=== PATIENT | female | born 1940 | race African-American/Black ===

== ENCOUNTER 2017-03-07 16:33 | Inpatient (IN) | payer MEDICARE, MEDICAID ==
[~2017-03-07] VITALS: Ht 160 cm; Wt 48.5 kg
[~2017-03-07 16:33] MED LIST: AMLODIPINE BESYL5 MG ORAL; ENALAPRIL MALE2.5 MG ORAL; FUROSEMIDE20 M1 ORAL; HYDROCODON-ACE1 EA15 ORAL; INVEGA6 MG PO; OXYBUTYNIN CHLOR5 M2 PO; QUETIAPINE FUM200 MG ORAL; SIMVASTATIN10 MG ORAL; ZOLPIDEM TARTRA10 MG ORAL
[2017-03-07 16:50] VITALS: BP 95/58
[2017-03-07 17:23] LABS: BASOPHILS % (AUTO) 1.1 % (0.0-2.0); EOSINOPHILS % (AUTO) 1.9 % (0.0-3.0); HEMATOCRIT 41.8 % (37.0-47.0); HEMOGLOBIN 13.1 G/DL (12.0-16.0); LYMPHOCYTES % (AUTO) 37.4 % (20.0-45.0); MEAN CORPUSCULAR VOLUME 100 FL (80-99); MONOCYTES % (AUTO) 6.6 % (1.0-10.0); PLATELET COUNT 283 K/UL (150-450); RED CELL DISTRIBUTION WIDTH 13.5 % (11.6-14.8)
[2017-03-07 17:51] LABS: ALANINE AMINOTRANSFERASE 26 U/L (12-78); ALBUMIN 3.3 G/DL (3.4-5.0); ALBUMIN/GLOBULIN RATIO 0.8 (1.0-2.7); ALKALINE PHOSPHATASE 103 U/L (46-116); ANION GAP 9 mmol/L (5-15); ASPARTATE AMINO TRANSFERASE 20 U/L (15-37); BILIRUBIN,TOTAL 0.2 MG/DL (0.2-1.0); BLOOD UREA NITROGEN 20 mg/dL (7-18); CALCIUM 9.4 MG/DL (8.5-10.1); CARBON DIOXIDE 27 MMOL/L (21-32); CHLORIDE 108 MMOL/L (98-107); CKMB 0.6 NG/ML (0.0-3.6); CREATINE KINASE 43 U/L (26-308); CREATININE 0.9 MG/DL (0.55-1.30); POTASSIUM 4.6 MMOL/L (3.5-5.1); SODIUM 144 MMOL/L (136-145)
[2017-03-07 18:00] VITALS: BP 92/52
[2017-03-07] MEDS ORDERED: DITROPAN XL5 MG ORAL (18:00)
[2017-03-07] MEDS ORDERED: AMLODIPINE BESY10 MG ORAL (18:00)
[2017-03-07] MEDS ORDERED: BENZTROPINE ME0.5 MG PO (18:00)
[2017-03-07] MEDS ORDERED: ATORVASTATIN CA10 MG ORAL (18:00)
[2017-03-07] MEDS ORDERED: BISACODYL5 MG RECTAL (18:00)
[2017-03-07] MEDS ORDERED: DOCUSATE SODIU100 MG ORAL (18:00)
[2017-03-07] MEDS ORDERED: ASPIR 8181 MG ORAL (18:00)
[2017-03-07] MEDS ORDERED: NAMENDA10 MG ORAL (18:00)
[2017-03-07] MEDS ORDERED: PRO-STAT LIQUID30 ML ORAL (18:08)
[2017-03-07] MEDS ORDERED: POTASSIUM CHLO20 ME2 ORAL (18:08)
[2017-03-07] MEDS ORDERED: SEROQUEL25 MG ORAL (18:08)
[2017-03-07] MEDS ORDERED: RESTORIL15 MG ORAL (18:08)
[2017-03-07] MEDS ORDERED: REMERON15 MG ORAL (18:08)
--- NOTE | 2017-03-07 18:10 | Emergency Room Report ---
History of Present Illness General Chief Complaint: General Complaint Source: Patient, Medical Record Present Illness HPI Patient presents emergency department today complaining of acute altered mental status. And possible pneumonia. His his primary care physician Dr. Summer Shea. Patient at baseline is confusing umbilical to provide much history. All history was obtained from medical records. Symptoms noted to be moderate per report. As patient apparently was coughing. At the group home.No other modifying factors. No other associated signs and symptoms. No other complaints were noted. Allergies: Coded Allergies: PENICILLINS (Verified Allergy, Unknown, 07/30/08) Patient History Past Medical History: HTN, CAD, psych hx - psychosis Past Surgical History: none Pertinent Family History: none Social History: Denies: smoking, alcohol use, drug use Reviewed Nursing Documentation: PMH: Agreed, PSxH: Agreed Nursing Documentation-PMH Past Medical History: No History, Except For Hx Cardiac Problems: Yes Hx Hypertension: Yes - pvd, rt bka Hx Cancer: No Hx Gastrointestinal Problems: Yes - abdominal pain Hx Neurological Problems: Yes - psychosis Review of Systems All Other Systems: limited - poor mental status Physical Exam Vital Signs Date Time Temp Pulse Resp B/P (MAP) Pulse Ox O2 Delivery O2 Flow Rate FiO2 03/07/17 16:27 98.2 57 18 103/57 95 Room Air Sp02 EP Interpretation: reviewed, normal General Appearance: alert, mild distress - weak and chronically ill Head: atraumatic Eyes: bilateral eye normal inspection ENT: normal ENT inspection, hearing grossly normal, normal voice Neck: normal inspection, full range of motion, supple, no bony tend Respiratory: decreased breath sounds, crackles - right Cardiovascular #1: regular rate, rhythm, no edema Gastrointestinal: normal inspection, normal bowel sounds, non tender, soft, no guarding, no hernia Genitourinary: no CVA tenderness Musculoskeletal: normal inspection, back normal, normal range of motion Neurologic: alert, responsive Psychiatric: depressed affect Skin: normal inspection, normal color, no rash Medical Decision Making Diagnostic Impression: Primary Impression: Pneumonia Additional Impression: Altered awareness, transient ER Course Patient presents emergency department today with cough congestion. Differential diagnoses include pneumonia, bronchitis, asthma just to name a few.Given the severity of the patient's presentation I felt this is a highly complex patient. This patient required extensive workup. Patient x-rays workup shows evidence of pneumonia. Given patient's borderline condition advanced age and illness and for the patient require admission for IV antibiotics. Patient was on IV antibiotics. Case was discussed with Dr. Summer Shea for admission. Labs Test 03/07/17 16:45 White Blood Count 9.0 K/UL (4.8-10.8) Red Blood Count 4.20 M/UL (4.20-5.40) Hemoglobin 13.1 G/DL (12.0-16.0) Hematocrit 41.8 % (37.0-47.0) Mean Corpuscular Volume 100 FL (80-99) Mean Corpuscular Hemoglobin 31.2 PG (27.0-31.0) Mean Corpuscular Hemoglobin Concent 31.3 G/DL (32.0-36.0) Red Cell Distribution Width 13.5 % (11.6-14.8) Platelet Count 283 K/UL (150-450) Mean Platelet Volume 5.0 FL (6.5-10.1) Neutrophils (%) (Auto) 53.0 % (45.0-75.0) Lymphocytes (%) (Auto) 37.4 % (20.0-45.0) Monocytes (%) (Auto) 6.6 % (1.0-10.0) Eosinophils (%) (Auto) 1.9 % (0.0-3.0) Basophils (%) (Auto) 1.1 % (0.0-2.0) Prothrombin Time 10.2 SEC (9.30-11.50) Prothromb Time International Ratio 1.0 (0.9-1.1) Activated Partial Thromboplast Time 26 SEC (23-33) Sodium Level 144 MMOL/L (136-145) Potassium Level 4.6 MMOL/L (3.5-5.1) Chloride Level 108 MMOL/L (98-107) Carbon Dioxide Level 27 MMOL/L (21-32) Anion Gap 9 mmol/L (5-15) Blood Urea Nitrogen 20 mg/dL (7-18) Creatinine 0.9 MG/DL (0.55-1.30) Estimat Glomerular Filtration Rate mL/min (>60) Glucose Level 109 MG/DL (74-106) Calcium Level 9.4 MG/DL (8.5-10.1) Total Bilirubin 0.2 MG/DL (0.2-1.0) Aspartate Amino Transf (AST/SGOT) 20 U/L (15-37) Alanine Aminotransferase (ALT/SGPT) 26 U/L (12-78) Alkaline Phosphatase 103 U/L (46-116) Total Creatine Kinase 43 U/L (26-308) Creatine Kinase MB 0.6 NG/ML (0.0-3.6) Creatine Kinase MB Relative Index 1.3 Troponin I 0.000 ng/mL (0.000-0.056) Pro-B-Type Natriuretic Peptide 328 pg/mL (0-125) Total Protein 7.2 G/DL (6.4-8.2) Albumin 3.3 G/DL (3.4-5.0) Globulin 3.9 g/dL Albumin/Globulin Ratio 0.8 (1.0-2.7) Lipase 62 U/L (73-393) EKG Diagnostic Results Rate: normal Rhythm: NSR ST Segments: no acute changes Rhythm Strip Diag. Results EP Interpretation: yes Rate: 92 Rhythm: NSR, no PVC's, no ectopy Chest X-Ray Diagnostic Results Chest X-Ray Diagnostic Results : Chest X-Ray Ordered: Yes # of Views/Limited/Complete: 1 View Indication: Shortness of Breath EP Interpretation: Yes Interpretation: no effusion, no pneumothorax, other - right sided infiltrate , Impression: Other - acute pneumonia Electronically Signed by: Electronically signed by Kenny Landry MD Last Vital Signs Date Time Temp Pulse Resp B/P (MAP) Pulse Ox O2 Delivery O2 Flow Rate FiO2 03/07/17 16:27 98.2 57 18 103/57 95 Room Air Status: improved Disposition: ADMITTED INPATIENT Condition: Serious Referrals: Summer Gaines MD (PCP) KENNY LANDRY M.D. Mar 07, 2017 18:10
[2017-03-07] MEDS ORDERED: cefTRIAXone 1 GM in NS 55 ML IVPB ONE (18:15)
[2017-03-07] MEDS ORDERED: Azithromycin 500 MG in D5W 275 ML IVPB ONE (18:15)
--- NOTE | 2017-03-07 19:05 | Infectious Diseases Prog Note ---
Assessment/Plan Problems: (1) Pneumonia Assessment & Plan: suspect HCAP, will screen for influenza, and start vancomycin with cefepime empirically (2) Sepsis Assessment & Plan: will start vancomycin with cefepime empirically pending blood culture (3) Altered awareness, transient Assessment & Plan: suspect due to sepsis, recommend brain image and neuro consult Subjective Allergies: Coded Allergies: PENICILLINS (Verified Allergy, Unknown, 07/30/08) Objective Vital Signs Last 24 Hour Vital Signs Date Time Temp Pulse Resp B/P (MAP) Pulse Ox O2 Delivery O2 Flow Rate FiO2 03/07/17 16:27 98.2 57 18 103/57 95 Room Air Height (Feet): 5 Height (Inches): 6.00 Weight (Pounds): 140 Laboratory Tests Test 03/07/17 16:45 White Blood Count 9.0 K/UL (4.8-10.8) Red Blood Count 4.20 M/UL (4.20-5.40) Hemoglobin 13.1 G/DL (12.0-16.0) Hematocrit 41.8 % (37.0-47.0) Mean Corpuscular Volume 100 FL (80-99) H Mean Corpuscular Hemoglobin 31.2 PG (27.0-31.0) H Mean Corpuscular Hemoglobin Concent 31.3 G/DL (32.0-36.0) L Red Cell Distribution Width 13.5 % (11.6-14.8) Platelet Count 283 K/UL (150-450) Mean Platelet Volume 5.0 FL (6.5-10.1) L Neutrophils (%) (Auto) 53.0 % (45.0-75.0) Lymphocytes (%) (Auto) 37.4 % (20.0-45.0) Monocytes (%) (Auto) 6.6 % (1.0-10.0) Eosinophils (%) (Auto) 1.9 % (0.0-3.0) Basophils (%) (Auto) 1.1 % (0.0-2.0) Prothrombin Time 10.2 SEC (9.30-11.50) Prothromb Time International Ratio 1.0 (0.9-1.1) Activated Partial Thromboplast Time 26 SEC (23-33) Sodium Level 144 MMOL/L (136-145) Potassium Level 4.6 MMOL/L (3.5-5.1) Chloride Level 108 MMOL/L (98-107) H Carbon Dioxide Level 27 MMOL/L (21-32) Anion Gap 9 mmol/L (5-15) Blood Urea Nitrogen 20 mg/dL (7-18) H Creatinine 0.9 MG/DL (0.55-1.30) Estimat Glomerular Filtration Rate mL/min (>60) Glucose Level 109 MG/DL (74-106) H Calcium Level 9.4 MG/DL (8.5-10.1) Total Bilirubin 0.2 MG/DL (0.2-1.0) Aspartate Amino Transf (AST/SGOT) 20 U/L (15-37) Alanine Aminotransferase (ALT/SGPT) 26 U/L (12-78) Alkaline Phosphatase 103 U/L (46-116) Total Creatine Kinase 43 U/L (26-308) Creatine Kinase MB 0.6 NG/ML (0.0-3.6) Creatine Kinase MB Relative Index 1.3 Troponin I 0.000 ng/mL (0.000-0.056) Pro-B-Type Natriuretic Peptide 328 pg/mL (0-125) H Total Protein 7.2 G/DL (6.4-8.2) Albumin 3.3 G/DL (3.4-5.0) L Globulin 3.9 g/dL Albumin/Globulin Ratio 0.8 (1.0-2.7) L Lipase 62 U/L (73-393) L Current Medications Medications (Trade) Dose Ordered Sig/Kvng Route PRN Reason Start Time Stop Time Status Last Admin Dose Admin Azithromycin 500 mg/Dextrose 275 ml @ 275 mls/hr ONCE ONCE IVPB 03/07/17 18:15 03/07/17 19:14 Ayanna Salazar M.D. Mar 07, 2017 19:05
[2017-03-07 19:30] VITALS: BP 122/75
[2017-03-07] MEDS ORDERED: Azithromycin 500mg Inj IV ONE (20:25)
[2017-03-07 20:30] VITALS: BP 110/91
[2017-03-07] MEDS: Cefepime HCl 2 GM in NS 110 ML IVPB SCH (22:56)
[2017-03-08] VITALS: BP 118/69
[2017-03-08] MEDS: Vancomycin 1 GM in D5W 275 ML IVPB SCH ×2 (00:03→23:31)
[2017-03-08] MEDS ORDERED: Norco 5mg/325mg tab ORAL PRN (03:15)
[2017-03-08] MEDS ORDERED: Zolpidem 5mg tab ORAL PRN (03:15)
[2017-03-08 04:00] VITALS: BP 159/70
[2017-03-08 08:25] VITALS: BP 132/81
[2017-03-08] MEDS: Aspirin EC 81mg tab ORAL SCH (09:14)
[2017-03-08] MEDS: Bisacodyl EC 5mg tab ORAL SCH (09:15)
[2017-03-08] MEDS: Enalapril 2.5mg tab ORAL SCH (09:15)
[2017-03-08] MEDS: Docusate 100mg cap ORAL SCH ×3 (09:15→18:52)
[2017-03-08] MEDS: Memantine 10mg tab ORAL SCH (09:16)
[2017-03-08] MEDS: Heparin 5000 units/ml inj SUBQ SCH ×2 (09:18→21:03)
[2017-03-08] MEDS: Cefepime HCl 2 GM in NS 110 ML IVPB SCH ×2 (09:47→20:52)
[2017-03-08 10:11] LABS: BASOPHILS % (AUTO) 0.7 % (0.0-2.0); EOSINOPHILS % (AUTO) 1.7 % (0.0-3.0); HEMATOCRIT 40.2 % (37.0-47.0); HEMOGLOBIN 13.5 G/DL (12.0-16.0); LYMPHOCYTES % (AUTO) 34.8 % (20.0-45.0); MEAN CORPUSCULAR VOLUME 95 FL (80-99); MONOCYTES % (AUTO) 8.1 % (1.0-10.0); NEUTROPHILS % (AUTO) 54.8 % (45.0-75.0); PLATELET COUNT 293 K/UL (150-450); RED BLOOD COUNT 4.21 M/UL (4.20-5.40); RED CELL DISTRIBUTION WIDTH 12.9 % (11.6-14.8); WHITE BLOOD COUNT 7.7 K/UL (4.8-10.8)
--- NOTE | 2017-03-08 10:15 | History and Physical Report ---
DATE OF ADMISSION: 03/07/2017 HISTORY OF PRESENT ILLNESS: The patient is a poor historian. She has had one schizophrenia paranoid type. The patient is admitted for cough and pneumonia on the x-ray, admitted for pneumonia. The patient coughing and shortness of breath. Denies nausea, vomiting, or diarrhea. No fever or chills. No abdominal pain. Denies rectal bleeding, however, is a poor historian. PAST MEDICAL HISTORY: PVD, paranoid schizophrenia, constipation, hypertension, advanced dementia, urinary incontinence, psychosis as mentioned, hyperlipidemia, and insomnia. PAST SURGICAL HISTORY: Lower extremity amputation. MEDICATIONS: Aspirin, Norvasc, bisacodyl, Colace, enalapril, furosemide, Namenda, mirtazapine, oxybutynin, , Invega, and Zocor. ALLERGIES: Penicillin. SOCIAL HISTORY: She does have a history of smoking. No history of drug or alcohol abuse. She comes from a [place] [facility]. REVIEW OF SYSTEMS: HEENT: Denies headaches. RESPIRATORY: Reports shortness of breath and cough. CARDIOVASCULAR: Denies chest pain. GASTROINTESTINAL: Denies nausea, vomiting, or diarrhea. EXTREMITIES: Denies pain. CENTRAL NERVOUS SYSTEM: No change in vision or speech pattern, however, she is a poor historian. PHYSICAL EXAMINATION: VITAL SIGNS: Temperature is 98.2 degrees, pulse is 57, and blood pressure 103/57. HEENT: PERRLA. NECK: Supple. No lymphadenopathy. CHEST: Bibasilar rales. CARDIOVASCULAR: Regular rate and rhythm. GI: Soft, nontender, and nondistended. No organomegaly. EXTREMITIES: Does have lower extremity amputation as mentioned. NEUROLOGIC: Oriented to name. LABORATORY AND DIAGNOSTIC DATA: Chest x-ray showed possible infiltrate. WBC of 9, hemoglobin 13.1, and platelets of 283,000. Sodium 144, potassium 4.6, BUN of 20, creatinine of 0.9, and glucose of 109. ASSESSMENT AND PLAN: Possible pneumonia on the x-ray. I have asked , Dr. Green, and Dr. Clark to see the patient for the pneumonia and for elevated chloride as well as elevated BNP. Summer Gaines M.D. DR: Cate JOB#: [id number] CC:
--- NOTE | 2017-03-08 10:22 | Diagnostic Imaging Report ---
Indication: COUGH Technique: One view of the chest Comparison: none Findings: Atelectatic changes are seen at both lung bases. Lungs and pleural spaces are otherwise clear. The heart is upper limits normal in size. Upper mediastinum is unremarkable. The aorta is tortuous ectatic and calcified. Impression: Bibasilar atelectasis No acute process otherwise
[2017-03-08 10:32] LABS: ANION GAP 7 mmol/L (5-15); BLOOD UREA NITROGEN 12 mg/dL (7-18); CALCIUM 9.1 MG/DL (8.5-10.1); CARBON DIOXIDE 26 MMOL/L (21-32); CHLORIDE 108 MMOL/L (98-107); CREATININE 0.8 MG/DL (0.55-1.30); POTASSIUM 4.1 MMOL/L (3.5-5.1); SODIUM 141 MMOL/L (136-145)
[2017-03-08 12:05] VITALS: BP 113/72
--- NOTE | 2017-03-08 14:36 | Consultation ---
Consult Note Assessment/Plan dict atelectasis no obvious pneumonia AMS consider neuro eval thanks KENIA DOYLE Mar 08, 2017 14:36
--- NOTE | 2017-03-08 14:36 | Consultation ---
Consult Note Assessment/Plan dict atelectasis no obvious pneumonia AMS consider neuro eval thanks KENIA DOYLE Mar 08, 2017 14:36
--- NOTE | 2017-03-08 14:36 | Consultation ---
Consult Note Assessment/Plan dict atelectasis no obvious pneumonia AMS consider neuro eval thanks KENIA DOYLE Mar 08, 2017 14:36
--- NOTE | 2017-03-08 15:26 | General Progress Note ---
Assessment/Plan Problem List: (1) Sepsis ICD Codes: A41.9 - Sepsis SNOMED: 64900581 (2) Pneumonia ICD Codes: J18.9 - Pneumonia, unspecified organism SNOMED: 229030053 Qualifiers: Status: progressing Assessment/Plan afebrile no wheezing sepsis pna abx per id psych patient Subjective ROS Limited/Unobtainable: Yes Allergies: Coded Allergies: PENICILLINS (Verified Allergy, Unknown, 07/30/08) Objective Last 24 Hour Vital Signs Date Time Temp Pulse Resp B/P (MAP) Pulse Ox O2 Delivery O2 Flow Rate FiO2 03/08/17 12:05 97.7 81 20 113/72 100 Room Air 03/08/17 09:15 132/81 03/08/17 09:15 87 132/81 03/08/17 08:25 97.7 87 16 132/81 96 Room Air 03/08/17 04:00 98.2 89 19 159/70 92 Room Air 03/08/17 00:00 97.3 75 20 118/69 97 Room Air 03/07/17 20:35 98.5 98 22 110/91 97 Room Air 03/07/17 20:30 98 22 110/91 97 Room Air 03/07/17 19:30 98.5 95 24 122/75 97 Room Air 03/07/17 18:00 56 16 92/52 96 Room Air 03/07/17 16:50 98.0 60 18 95/58 95 Room Air 03/07/17 16:27 98.2 57 18 103/57 95 Room Air Intake and Output 03/08/17 03/09/17 19:00 07:00 Intake Total 200 ml Balance 200 ml Intake Oral 200 ml Laboratory Tests 03/07/17 16:45: White Blood Count 9.0, Red Blood Count 4.20, Hemoglobin 13.1, Hematocrit 41.8, Mean Corpuscular Volume 100H, Mean Corpuscular Hemoglobin 31.2H, Mean Corpuscular Hemoglobin Concent 31.3L, Red Cell Distribution Width 13.5, Platelet Count 283, Mean Platelet Volume 5.0L, Neutrophils (%) (Auto) 53.0, Lymphocytes (%) (Auto) 37.4, Monocytes (%) (Auto) 6.6, Eosinophils (%) (Auto) 1.9, Basophils (%) (Auto) 1.1, Prothrombin Time 10.2, Prothromb Time International Ratio 1.0, Activated Partial Thromboplast Time 26, Sodium Level 144, Potassium Level 4.6, Chloride Level 108H, Carbon Dioxide Level 27, Anion Gap 9, Blood Urea Nitrogen 20H, Creatinine 0.9, Estimat Glomerular Filtration Rate , Glucose Level 109H, Calcium Level 9.4, Total Bilirubin 0.2, Aspartate Amino Transf (AST/SGOT) 20, Alanine Aminotransferase (ALT/SGPT) 26, Alkaline Phosphatase 103, Total Creatine Kinase 43, Creatine Kinase MB 0.6, Creatine Kinase MB Relative Index 1.3, Troponin I 0.000, Pro-B-Type Natriuretic Peptide 328H, Total Protein 7.2, Albumin 3.3L, Globulin 3.9, Albumin/Globulin Ratio 0.8L , Lipase 62L 03/08/17 10:00: White Blood Count 7.7, Red Blood Count 4.21, Hemoglobin 13.5, Hematocrit 40.2, Mean Corpuscular Volume 95, Mean Corpuscular Hemoglobin 32.0H, Mean Corpuscular Hemoglobin Concent 33.5, Red Cell Distribution Width 12.9, Platelet Count 293, Mean Platelet Volume 5.4L, Neutrophils (%) (Auto) 54.8, Lymphocytes (%) (Auto) 34.8, Monocytes (%) (Auto) 8.1, Eosinophils (%) (Auto) 1.7, Basophils (%) (Auto ) 0.7, Sodium Level 141, Potassium Level 4.1, Chloride Level 108H, Carbon Dioxide Level 26, Anion Gap 7, Blood Urea Nitrogen 12, Creatinine 0.8, Estimat Glomerular Filtration Rate , Glucose Level 100, Calcium Level 9.1 Height (Feet): 5 Height (Inches): 6.00 Weight (Pounds): 140 General Appearance: confused - l Respiratory/Chest: lungs clear Abdomen: soft Summer Gaines MD Mar 08, 2017 15:26
--- NOTE | 2017-03-08 15:46 | Infectious Diseases Prog Note ---
Assessment/Plan Problems: (1) Pneumonia Assessment & Plan: needs to rule out aspiration, since she had prolonged oral phase when eating , screening for influenza is negative , continue vancomycin with cefepime empirically (2) Sepsis Assessment & Plan: continue vancomycin with cefepime empirically pending blood culture (3) Altered awareness, transient Assessment & Plan: suspect due to sepsis, recommend brain image and neuro consult (4) At risk for aspiration Assessment & Plan: recommend swallow eval Subjective ROS Limited/Unobtainable: Yes Allergies: Coded Allergies: PENICILLINS (Verified Allergy, Unknown, 07/30/08) Subjective she is sleeping , but easy to arouse , nonverbal, follows commands Objective Vital Signs Last 24 Hour Vital Signs Date Time Temp Pulse Resp B/P (MAP) Pulse Ox O2 Delivery O2 Flow Rate FiO2 03/08/17 12:05 97.7 81 20 113/72 100 Room Air 03/08/17 09:15 132/81 03/08/17 09:15 87 132/81 03/08/17 08:25 97.7 87 16 132/81 96 Room Air 03/08/17 04:00 98.2 89 19 159/70 92 Room Air 03/08/17 00:00 97.3 75 20 118/69 97 Room Air 03/07/17 20:35 98.5 98 22 110/91 97 Room Air 03/07/17 20:30 98 22 110/91 97 Room Air 03/07/17 19:30 98.5 95 24 122/75 97 Room Air 03/07/17 18:00 56 16 92/52 96 Room Air 03/07/17 16:50 98.0 60 18 95/58 95 Room Air 03/07/17 16:27 98.2 57 18 103/57 95 Room Air Height (Feet): 5 Height (Inches): 6.00 Weight (Pounds): 140 General Appearance: WD/WN, no acute distress HEENT: normocephalic, atraumatic, anicteric, mucous membranes moist Respiratory/Chest: chest wall non-tender, lungs clear, normal breath sounds, no respiratory distress, no accessory muscle use Cardiovascular: normal peripheral pulses, normal rate, regular rhythm, no gallop/murmur, no JVD Abdomen: normal bowel sounds, soft, non tender, no organomegaly, non distended , no mass, no scars Extremities: no cyanosis, no clubbing Skin: no rash, no lesions, no ulcers Neurologic/Psychiatric: alert, responsive Lymphatic: no neck adenopathy, no groin adenopathy Microbiology Date/Time Source Procedure Growth Status 03/08/17 04:33 Nasopharynx Influenza Types A,B Antigen (NUPUR) - Final Complete Laboratory Tests Test 03/07/17 16:45 03/08/17 10:00 White Blood Count 9.0 K/UL (4.8-10.8) 7.7 K/UL (4.8-10.8) Red Blood Count 4.20 M/UL (4.20-5.40) 4.21 M/UL (4.20-5.40) Hemoglobin 13.1 G/DL (12.0-16.0) 13.5 G/DL (12.0-16.0) Hematocrit 41.8 % (37.0-47.0) 40.2 % (37.0-47.0) Mean Corpuscular Volume 100 FL (80-99) H 95 FL (80-99) Mean Corpuscular Hemoglobin 31.2 PG (27.0-31.0) H 32.0 PG (27.0-31.0) H Mean Corpuscular Hemoglobin Concent 31.3 G/DL (32.0-36.0) L 33.5 G/DL (32.0-36.0) Red Cell Distribution Width 13.5 % (11.6-14.8) 12.9 % (11.6-14.8) Platelet Count 283 K/UL (150-450) 293 K/UL (150-450) Mean Platelet Volume 5.0 FL (6.5-10.1) L 5.4 FL (6.5-10.1) L Neutrophils (%) (Auto) 53.0 % (45.0-75.0) 54.8 % (45.0-75.0) Lymphocytes (%) (Auto) 37.4 % (20.0-45.0) 34.8 % (20.0-45.0) Monocytes (%) (Auto) 6.6 % (1.0-10.0) 8.1 % (1.0-10.0) Eosinophils (%) (Auto) 1.9 % (0.0-3.0) 1.7 % (0.0-3.0) Basophils (%) (Auto) 1.1 % (0.0-2.0) 0.7 % (0.0-2.0) Prothrombin Time 10.2 SEC (9.30-11.50) Prothromb Time International Ratio 1.0 (0.9-1.1) Activated Partial Thromboplast Time 26 SEC (23-33) Sodium Level 144 MMOL/L (136-145) 141 MMOL/L (136-145) Potassium Level 4.6 MMOL/L (3.5-5.1) 4.1 MMOL/L (3.5-5.1) Chloride Level 108 MMOL/L (98-107) H 108 MMOL/L (98-107) H Carbon Dioxide Level 27 MMOL/L (21-32) 26 MMOL/L (21-32) Anion Gap 9 mmol/L (5-15) 7 mmol/L (5-15) Blood Urea Nitrogen 20 mg/dL (7-18) H 12 mg/dL (7-18) Creatinine 0.9 MG/DL (0.55-1.30) 0.8 MG/DL (0.55-1.30) Estimat Glomerular Filtration Rate mL/min (>60) mL/min (>60) Glucose Level 109 MG/DL (74-106) H 100 MG/DL (74-106) Calcium Level 9.4 MG/DL (8.5-10.1) 9.1 MG/DL (8.5-10.1) Total Bilirubin 0.2 MG/DL (0.2-1.0) Aspartate Amino Transf (AST/SGOT) 20 U/L (15-37) Alanine Aminotransferase (ALT/SGPT) 26 U/L (12-78) Alkaline Phosphatase 103 U/L (46-116) Total Creatine Kinase 43 U/L (26-308) Creatine Kinase MB 0.6 NG/ML (0.0-3.6) Creatine Kinase MB Relative Index 1.3 Troponin I 0.000 ng/mL (0.000-0.056) Pro-B-Type Natriuretic Peptide 328 pg/mL (0-125) H Total Protein 7.2 G/DL (6.4-8.2) Albumin 3.3 G/DL (3.4-5.0) L Globulin 3.9 g/dL Albumin/Globulin Ratio 0.8 (1.0-2.7) L Lipase 62 U/L (73-393) L Current Medications Medications (Trade) Dose Ordered Sig/Kvng Route PRN Reason Start Time Stop Time Status Last Admin Dose Admin Acetaminophen/ Hydrocodone Bitart ([place] 5/325) 1 tab Q4H PRN ORAL For Pain 03/08/17 03:15 03/15/17 03:14 Amlodipine Besylate (Norvasc) 10 mg DAILY ORAL 03/08/17 09:00 04/07/17 08:59 03/08/17 09:15 Aspirin (Ecotrin) 81 mg DAILY ORAL 03/08/17 09:00 04/07/17 08:59 03/08/17 09:14 Atorvastatin Calcium (Lipitor) 5 mg BEDTIME ORAL 03/08/17 21:00 04/07/17 20:59 Benztropine Mesylate (Cogentin) 0.5 mg QHS ORAL 03/08/17 21:00 04/07/17 20:59 Bisacodyl (Dulcolax) 10 mg DAILY ORAL 03/08/17 09:00 04/07/17 08:59 03/08/17 09:15 Cefepime HCl 2 gm/ Sodium Chloride 110 ml @ 220 mls/hr EVERY 12 HOURS IVPB 03/07/17 21:00 03/14/17 20:59 03/08/17 09:47 Docusate Sodium (Colace) 100 mg TWICE A DAY ORAL 03/08/17 09:00 04/07/17 08:59 03/08/17 09:15 Enalapril Maleate (Vasotec) 2.5 mg DAILY ORAL 03/08/17 09:00 04/07/17 08:59 03/08/17 09:15 Furosemide (Lasix) 20 mg DAILY ORAL 03/08/17 09:00 04/07/17 08:59 03/08/17 09:15 Heparin Sodium (Porcine) (Heparin 5000 units/ml) 5,000 units EVERY 12 HOURS SUBQ 03/08/17 09:00 04/07/17 08:59 03/08/17 09:18 Memantine (Namenda) 10 mg DAILY ORAL 03/08/17 09:00 04/07/17 08:59 03/08/17 09:16 Mirtazapine (Remeron) 15 mg BEDTIME ORAL 03/08/17 21:00 04/07/17 20:59 Non-Formulary Medication (Non-Formulary Med) 1 ea DAILY ORAL 03/08/17 09:00 04/07/17 08:59 UNV Oxybutynin Chloride (Ditropan) 5 mg BID ORAL 03/08/17 18:00 04/07/17 17:59 Potassium Chloride (K-Dur) 20 meq DAILY ORAL 03/09/17 09:00 04/08/17 08:59 Quetiapine Fumarate (SEROquel) 25 mg DAILY ORAL 03/08/17 09:00 04/07/17 08:59 03/08/17 09:15 Temazepam (Restoril) 15 mg BEDTIME PRN ORAL Insomnia 03/08/17 03:15 03/15/17 03:14 Vancomycin HCl (Vanco rx to dose) 1 ea DAILY PRN MISC Per rx protocol 03/07/17 19:15 04/06/17 19:14 Vancomycin HCl 1 gm/Dextrose 275 ml @ 183.708 mls/hr Q24H IVPB 03/07/17 22:00 03/12/17 21:59 03/08/17 00:03 Ayanna Salazar M.D. Mar 08, 2017 15:46
[2017-03-08] MEDS: Oxybutynin 5mg tab ORAL SCH ×2 (18:00→18:52)
[2017-03-08] MEDS: Benztropine 1mg tab ORAL SCH (21:00)
--- NOTE | 2017-03-08 21:15 | Consultation ---
DATE OF CONSULTATION: 03/08/2017 PULMONARY CONSULTATION CHIEF COMPLAINT: Altered mental status. HISTORY OF PRESENT ILLNESS: The patient was brought to the emergency department from a retirement because of altered mental status. She is a poor historian. There is a history of schizophrenia. Evaluation showed possible pneumonia and I was called to see her in consultation. The patient is awake enough to provide answers to a few questions. She states that she is a past smoker. She does not have complaints of cough or shortness of breath. She has no chest pain. PAST MEDICAL HISTORY: Hypertension, coronary artery disease, psychosis, and tardive dyskinesia. Based on her medication list, it is evident there is history of hypertension, hyperlipidemia, and dementia as well as urinary dysfunction. MEDICATIONS: Reviewed. ALLERGIES: Penicillin. REVIEW OF SYSTEMS: Cannot be obtained. PHYSICAL EXAMINATION: GENERAL: The patient is lying in bed, curled up. She was willing to sit up for examination. VITAL SIGNS: Normal. There is no fever. There is mild bradycardia. HEENT: The head is normocephalic. There is constant protrusion of the tongue due to tardive dyskinesia. NECK: No jugular venous distention. CHEST: Clear. CARDIAC: Rhythm is regular. ABDOMEN: Soft and nontender. EXTREMITIES: No clubbing, cyanosis, or edema. LABORATORY AND DIAGNOSTIC DATA: The white count is 9000 and came down to 7700 today, hemoglobin 13.5, and platelet count is normal. Chemistry shows normal electrolytes. Blood sugar is 100. Troponin is negative. BNP is 328. Albumin 3.3. Coagulation parameters are unremarkable. Chest x-ray shows some basilar atelectasis. There is no obvious pneumonia. IMPRESSION: 1. Atelectasis, doubt pneumonia. 2. Altered mental status, etiology unclear, resolved. 3. Psychosis. 4. Tardive dyskinesia. 5. Coronary heart disease. 6. Hypertension. PLAN: I do not believe the patient requires respiratory treatments. Antibiotics have been ordered by the Infectious Disease specialist. I will be happy to follow with you in the hospital and evaluate if any respiratory symptoms develop. A follow-up chest x-ray will be obtained in two to three days. Thank you. Michel Green M.D. DR: COLBY JOB#: [id number] CC: Summer Gaines M.D.; Fax#: [phone] MICHEL GREEN M.D. ; FAX#: [phone]
--- NOTE | 2017-03-08 21:15 | Consultation ---
DATE OF CONSULTATION: 03/08/2017 PULMONARY CONSULTATION CHIEF COMPLAINT: Altered mental status. HISTORY OF PRESENT ILLNESS: The patient was brought to the emergency department from a residential because of altered mental status. She is a poor historian. There is a history of schizophrenia. Evaluation showed possible pneumonia and I was called to see her in consultation. The patient is awake enough to provide answers to a few questions. She states that she is a past smoker. She does not have complaints of cough or shortness of breath. She has no chest pain. PAST MEDICAL HISTORY: Hypertension, coronary artery disease, psychosis, and tardive dyskinesia. Based on her medication list, it is evident there is history of hypertension, hyperlipidemia, and dementia as well as urinary dysfunction. MEDICATIONS: Reviewed. ALLERGIES: Penicillin. REVIEW OF SYSTEMS: Cannot be obtained. PHYSICAL EXAMINATION: GENERAL: The patient is lying in bed, curled up. She was willing to sit up for examination. VITAL SIGNS: Normal. There is no fever. There is mild bradycardia. HEENT: The head is normocephalic. There is constant protrusion of the tongue due to tardive dyskinesia. NECK: No jugular venous distention. CHEST: Clear. CARDIAC: Rhythm is regular. ABDOMEN: Soft and nontender. EXTREMITIES: No clubbing, cyanosis, or edema. LABORATORY AND DIAGNOSTIC DATA: The white count is 9000 and came down to 7700 today, hemoglobin 13.5, and platelet count is normal. Chemistry shows normal electrolytes. Blood sugar is 100. Troponin is negative. BNP is 328. Albumin 3.3. Coagulation parameters are unremarkable. Chest x-ray shows some basilar atelectasis. There is no obvious pneumonia. IMPRESSION: 1. Atelectasis, doubt pneumonia. 2. Altered mental status, etiology unclear, resolved. 3. Psychosis. 4. Tardive dyskinesia. 5. Coronary heart disease. 6. Hypertension. PLAN: I do not believe the patient requires respiratory treatments. Antibiotics have been ordered by the Infectious Disease specialist. I will be happy to follow with you in the hospital and evaluate if any respiratory symptoms develop. A follow-up chest x-ray will be obtained in two to three days. Thank you. Michel Green M.D. DR: COLBY JOB#: [id number] CC: Summer Gaines M.D.; Fax#: [phone] MICHEL GREEN M.D. ; FAX#: [phone]
--- NOTE | 2017-03-08 21:15 | Consultation ---
DATE OF CONSULTATION: 03/08/2017 PULMONARY CONSULTATION CHIEF COMPLAINT: Altered mental status. HISTORY OF PRESENT ILLNESS: The patient was brought to the emergency department from a [place] [facility] because of altered mental status. She is a poor historian. There is a history of schizophrenia. Evaluation showed possible pneumonia and I was called to see her in consultation. The patient is awake enough to provide answers to a few questions. She states that she is a past smoker. She does not have complaints of cough or shortness of breath. She has no chest pain. PAST MEDICAL HISTORY: Hypertension, coronary artery disease, psychosis, and tardive dyskinesia. Based on her medication list, it is evident there is history of hypertension, hyperlipidemia, and dementia as well as urinary dysfunction. MEDICATIONS: Reviewed. ALLERGIES: Penicillin. REVIEW OF SYSTEMS: Cannot be obtained. PHYSICAL EXAMINATION: GENERAL: The patient is lying in bed, curled up. She was willing to sit up for examination. VITAL SIGNS: Normal. There is no fever. There is mild bradycardia. HEENT: The head is normocephalic. There is constant protrusion of the tongue due to tardive dyskinesia. NECK: No jugular venous distention. CHEST: Clear. CARDIAC: Rhythm is regular. ABDOMEN: Soft and nontender. EXTREMITIES: No clubbing, cyanosis, or edema. LABORATORY AND DIAGNOSTIC DATA: The white count is 9000 and came down to 7700 today, hemoglobin 13.5, and platelet count is normal. Chemistry shows normal electrolytes. Blood sugar is 100. Troponin is negative. BNP is 328. Albumin 3.3. Coagulation parameters are unremarkable. Chest x-ray shows some basilar atelectasis. There is no obvious pneumonia. IMPRESSION: 1. Atelectasis, doubt pneumonia. 2. Altered mental status, etiology unclear, resolved. 3. Psychosis. 4. Tardive dyskinesia. 5. Coronary heart disease. 6. Hypertension. PLAN: I do not believe the patient requires respiratory treatments. Antibiotics have been ordered by the Infectious Disease specialist. I will be happy to follow with you in the hospital and evaluate if any respiratory symptoms develop. A follow-up chest x-ray will be obtained in two to three days. Thank you. Michel Green M.D. DR: COLBY JOB#: [id number] CC: Summer Gaines M.D.; Fax#: [phone] MICHEL GREEN M.D. ; FAX#: [phone]
--- NOTE | 2017-03-08 22:21 | Consultation ---
History of Present Illness General Date patient seen: Mar 07, 2017 Chief Complaint: General Complaint Present Illness HPI the pt is a 76 yo male with hx of schizophrenia who is admitted for cough and pneumonia. the pt is confused and pw agitation and anxiety. during the evel the pt was confused and disoriented attempted to come out of the bed. Allergies: Coded Allergies: PENICILLINS (Verified Allergy, Unknown, 07/30/08) Medication History Scheduled Amino Acids/Protein Hydrolys (Pro-Stat Liquid), 30 ML ORAL TWICE A DAY, ( Reported) Amlodipine Besylate* (Amlodipine Besylate*), 5 MG ORAL DAILY, (Reported) Amlodipine Besylate* (Amlodipine Besylate*), 10 MG ORAL DAILY, (Reported) Aspirin* (Aspir 81*), 81 MG ORAL DAILY, (Reported) Atorvastatin Calcium* (Lipitor*), 5 MG ORAL BEDTIME, (Reported) Benztropine Mesylate* (Cogentin*), 1 MG PO DAILY, (Reported) Bisacodyl* (Dulcolax*), 10 MG RECTAL DAILY, (Reported) Docusate Sodium* (Docusate Sodium*), 100 MG ORAL TWICE A DAY, (Reported) Enalapril Maleate* (Enalapril Maleate*), 2.5 MG ORAL DAILY, (Reported) Furosemide* (Lasix*), 20 MG ORAL DAILY, (Reported) Memantine Hcl* (Namenda*), 10 MG ORAL DAILY, (Reported) Mirtazapine* (Remeron*), 15 MG ORAL BEDTIME, (Reported) Oxybutynin Chloride (Oxybutynin Chloride Er), 5 MG PO DAILY, (Reported) Oxybutynin Chloride (Ditropan Xl), 5 MG ORAL DAILY, (Reported) Paliperidone (Invega), 6 MG PO BEDTIME, (Reported) Potassium Chloride (Potassium Chloride), 20 MEQ ORAL DAILY, (Reported) Quetiapine Fumarate* (Seroquel*), 200 MG ORAL BEDTIME, (Reported) Quetiapine Fumarate* (Seroquel*), 25 MG ORAL DAILY, (Reported) Simvastatin (Zocor), 10 MG ORAL BEDTIME, (Reported) Scheduled PRN Hydrocodone/Acetaminophen 5-325* (Hydrocodone/Acetaminophen 5-325*), 1 TAB ORAL Q4H PRN for For Pain, (Reported) Temazepam* (Restoril*), 15 MG ORAL BEDTIME PRN for Insomnia, (Reported) Zolpidem Tartrate* (Zolpidem Tartrate*), 10 MG ORAL BEDTIME PRN for Insomnia, ( Reported) Patient History Limited by: medical condition History Provided By: Patient, Medical Record, PMD Healthcare decision maker Resuscitation status Full Code Advanced Directive on File Yes Past Medical/Surgical History Past Medical/Surgical History: (1) Acute abdominal pain (2) Gastroenteritis (3) Intractable vomiting (4) UTI (lower urinary tract infection) (5) Altered awareness, transient (6) Sepsis (7) Pneumonia (8) At risk for aspiration Review of Systems Constitutional: Reports: malaise, weakness Psychiatric: Reports: prior hx, anxiety, depressed feelings, hallucinations Physical Exam General Appearance: no apparent distress, alert, confused, cachetic Neurologic: alert, responsive, disoriented, unresponsiveness, depressed affect Last 24 Hour Vital Signs Date Time Temp Pulse Resp B/P (MAP) Pulse Ox O2 Delivery O2 Flow Rate FiO2 03/08/17 12:05 97.7 81 20 113/72 100 Room Air 03/08/17 09:15 132/81 03/08/17 09:15 87 132/81 03/08/17 08:25 97.7 87 16 132/81 96 Room Air 03/08/17 04:00 98.2 89 19 159/70 92 Room Air 03/08/17 00:00 97.3 75 20 118/69 97 Room Air Intake and Output 03/08/17 03/09/17 19:00 07:00 Intake Total 310 ml Balance 310 ml Intake Oral 200 ml IV Total 110 ml Laboratory Tests Test 03/08/17 10:00 White Blood Count 7.7 K/UL (4.8-10.8) Red Blood Count 4.21 M/UL (4.20-5.40) Hemoglobin 13.5 G/DL (12.0-16.0) Hematocrit 40.2 % (37.0-47.0) Mean Corpuscular Volume 95 FL (80-99) Mean Corpuscular Hemoglobin 32.0 PG (27.0-31.0) H Mean Corpuscular Hemoglobin Concent 33.5 G/DL (32.0-36.0) Red Cell Distribution Width 12.9 % (11.6-14.8) Platelet Count 293 K/UL (150-450) Mean Platelet Volume 5.4 FL (6.5-10.1) L Neutrophils (%) (Auto) 54.8 % (45.0-75.0) Lymphocytes (%) (Auto) 34.8 % (20.0-45.0) Monocytes (%) (Auto) 8.1 % (1.0-10.0) Eosinophils (%) (Auto) 1.7 % (0.0-3.0) Basophils (%) (Auto) 0.7 % (0.0-2.0) Sodium Level 141 MMOL/L (136-145) Potassium Level 4.1 MMOL/L (3.5-5.1) Chloride Level 108 MMOL/L (98-107) H Carbon Dioxide Level 26 MMOL/L (21-32) Anion Gap 7 mmol/L (5-15) Blood Urea Nitrogen 12 mg/dL (7-18) Creatinine 0.8 MG/DL (0.55-1.30) Estimat Glomerular Filtration Rate mL/min (>60) Glucose Level 100 MG/DL (74-106) Calcium Level 9.1 MG/DL (8.5-10.1) Microbiology Date/Time Source Procedure Growth Status 03/08/17 04:33 Nasopharynx Influenza Types A,B Antigen (NUPUR) - Final Complete Height (Feet): 5 Height (Inches): 6.00 Weight (Pounds): 140 Medications Current Medications Medications (Trade) Dose Ordered Sig/Kvng Route PRN Reason Start Time Stop Time Status Last Admin Dose Admin Acetaminophen/ Hydrocodone Bitart ([place] 5/325) 1 tab Q4H PRN ORAL For Pain 03/08/17 03:15 03/15/17 03:14 Amlodipine Besylate (Norvasc) 10 mg DAILY ORAL 03/08/17 09:00 04/07/17 08:59 03/08/17 09:15 Aspirin (Ecotrin) 81 mg DAILY ORAL 03/08/17 09:00 04/07/17 08:59 03/08/17 09:14 Atorvastatin Calcium (Lipitor) 5 mg BEDTIME ORAL 03/08/17 21:00 04/07/17 20:59 Benztropine Mesylate (Cogentin) 0.5 mg QHS ORAL 03/08/17 21:00 04/07/17 20:59 Bisacodyl (Dulcolax) 10 mg DAILY ORAL 03/08/17 09:00 04/07/17 08:59 03/08/17 09:15 Cefepime HCl 2 gm/ Sodium Chloride 110 ml @ 220 mls/hr EVERY 12 HOURS IVPB 03/07/17 21:00 03/14/17 20:59 03/08/17 20:52 Docusate Sodium (Colace) 100 mg TWICE A DAY ORAL 03/08/17 09:00 04/07/17 08:59 03/08/17 09:15 Enalapril Maleate (Vasotec) 2.5 mg DAILY ORAL 03/08/17 09:00 04/07/17 08:59 03/08/17 09:15 Furosemide (Lasix) 20 mg DAILY ORAL 03/08/17 09:00 04/07/17 08:59 03/08/17 09:15 Heparin Sodium (Porcine) (Heparin 5000 units/ml) 5,000 units EVERY 12 HOURS SUBQ 03/08/17 09:00 04/07/17 08:59 03/08/17 21:03 Memantine (Namenda) 10 mg DAILY ORAL 03/08/17 09:00 04/07/17 08:59 03/08/17 09:16 Mirtazapine (Remeron) 15 mg BEDTIME ORAL 03/08/17 21:00 04/07/17 20:59 Non-Formulary Medication (Non-Formulary Med) 1 ea DAILY ORAL 03/08/17 09:00 04/07/17 08:59 UNV Oxybutynin Chloride (Ditropan) 5 mg BID ORAL 03/08/17 18:00 04/07/17 17:59 Potassium Chloride (K-Dur) 20 meq DAILY ORAL 03/09/17 09:00 04/08/17 08:59 Quetiapine Fumarate (SEROquel) 25 mg DAILY ORAL 03/08/17 09:00 04/07/17 08:59 03/08/17 09:15 Temazepam (Restoril) 15 mg BEDTIME PRN ORAL Insomnia 03/08/17 03:15 03/15/17 03:14 Vancomycin HCl (Vanco rx to dose) 1 ea DAILY PRN MISC Per rx protocol 03/07/17 19:15 04/06/17 19:14 Vancomycin HCl 1 gm/Dextrose 275 ml @ 183.708 mls/hr Q24H IVPB 03/07/17 22:00 03/12/17 21:59 03/08/17 00:03 Assessment/Plan Status: unchanged Assessment/Plan encephalopathy schizophrenia -seroquel 25 mg qhs -remeron 15 mg qhs Manny Lester M.D. Mar 08, 2017 22:21
--- NOTE | 2017-03-08 22:23 | General Progress Note ---
Assessment/Plan Status: unchanged Assessment/Plan agitation schizophrenia seroquel 12.5mg q 6hr remeron Subjective Date patient seen: Mar 08, 2017 Neurologic/Psychiatric: Reports: anxiety, depressed, emotional problems Allergies: Coded Allergies: PENICILLINS (Verified Allergy, Unknown, 07/30/08) Objective Last 24 Hour Vital Signs Date Time Temp Pulse Resp B/P (MAP) Pulse Ox O2 Delivery O2 Flow Rate FiO2 03/08/17 12:05 97.7 81 20 113/72 100 Room Air 03/08/17 09:15 132/81 03/08/17 09:15 87 132/81 03/08/17 08:25 97.7 87 16 132/81 96 Room Air 03/08/17 04:00 98.2 89 19 159/70 92 Room Air 03/08/17 00:00 97.3 75 20 118/69 97 Room Air Intake and Output 03/08/17 03/09/17 19:00 07:00 Intake Total 310 ml Balance 310 ml Intake Oral 200 ml IV Total 110 ml Laboratory Tests 03/08/17 10:00: White Blood Count 7.7, Red Blood Count 4.21, Hemoglobin 13.5, Hematocrit 40.2, Mean Corpuscular Volume 95, Mean Corpuscular Hemoglobin 32.0H, Mean Corpuscular Hemoglobin Concent 33.5, Red Cell Distribution Width 12.9, Platelet Count 293, Mean Platelet Volume 5.4L, Neutrophils (%) (Auto) 54.8, Lymphocytes (%) (Auto) 34.8, Monocytes (%) (Auto) 8.1, Eosinophils (%) (Auto) 1.7, Basophils (%) (Auto ) 0.7, Sodium Level 141, Potassium Level 4.1, Chloride Level 108H, Carbon Dioxide Level 26, Anion Gap 7, Blood Urea Nitrogen 12, Creatinine 0.8, Estimat Glomerular Filtration Rate , Glucose Level 100, Calcium Level 9.1 Height (Feet): 5 Height (Inches): 6.00 Weight (Pounds): 140 General Appearance: no apparent distress, alert, confused, agitated Neurologic: alert, responsive, disoriented, depressed affect Manny Lester M.D. Mar 08, 2017 22:23
[2017-03-09] VITALS: BP 120/89
--- NOTE | 2017-03-09 00:45 | Consultation ---
DATE OF CONSULTATION: 03/08/2017 INFECTIOUS DISEASES CONSULTATION CONSULTING PHYSICIAN: Ayanna Salazar M.D. REQUESTING PHYSICIAN: Summer Gaines M.D. REASON FOR CONSULTATION: Pneumonia, possible aspiration, sepsis, and altered mental status. HISTORY OF PRESENT ILLNESS: The patient is a 76-year-old female with past medical history of hypertension, coronary artery disease, and psychosis was brought into the emergency room at [facility] with acute mental status change and possible pneumonia. The patient had baseline dementia with confusion, was not able to provide any history but she was coughing with tachypnea in the emergency room, unclear whether she had a fever or productive cough at the correction. No other associated symptoms. The patient was saturating 95% on room air in the emergency room with temperature 98.2. Chest x-ray showed a right-sided infiltration. So, the patient was started on IV antibiotics and I was consulted by the primary provider for antibiotics treatment and further management. As of note, the patient is poor historian, cannot provide any history. History was mainly obtained from the medical record. PAST MEDICAL HISTORY: Significant for hypertension, coronary artery disease, and psychosis. PAST SURGICAL HISTORY: Negative. ALLERGIES: She is allergic to penicillin. MEDICATIONS: She has received ceftriaxone and azithromycin in the emergency room. For the rest of her medications, please refer to MAR. SOCIAL HISTORY: The patient lives at care home facility. No recent drugs, tobacco, or alcohol. FAMILY HISTORY: Unable to obtain. REVIEW OF SYSTEMS: Unable to obtain, the patient is poor historian. PHYSICAL EXAMINATION: VITAL SIGNS: Temperature 98.5, pulse 95, respirations 24, blood pressure 122/75, and saturation 97% on room air. GENERAL: Elderly female, up in bed, sleeping but easy to arouse, alert, nonverbal, not in acute distress. HEENT: Normocephalic and atraumatic. Pupils are reactive to light. Dry oral mucosa. No exudate or thrush. NECK: Supple. No lymphadenopathy. CARDIOVASCULAR: Regular rate and rhythm. No murmur. LUNGS: She had crackles. Diminished breathing sounds at the bases. ABDOMEN: Soft, nontender, and nondistended. Positive bowel sounds. No hepatosplenomegaly. No ascites. EXTREMITIES: No edema or cyanosis. SKIN: No rash or hives. LABORATORY DATA: Labs showed white count of 9000, hemoglobin of 13.1, and platelet count of 283. BUN of 12 and creatinine of 0.8. AST of 20, ALT of 26, and alkaline phosphatase of . IMAGING: Chest x-ray showed bibasilar atelectasis. ASSESSMENT AND RECOMMENDATION: 1. Pneumonia with basilar infiltration, rule out aspiration. We will screen the patient for influenza and start vancomycin and cefepime. Recommend swallow evaluation and speech pathology assessment to rule out aspiration. 2. Sepsis due to pneumonia with basilar infiltration. Continue vancomycin and cefepime empiric treatment. Pending blood culture results. 3. Altered mental status due to the above. Recommend brain image. Neuro consult if no improvement. Thank you for the consult. Infectious Disease will continue to follow. Ayanna Salazar M.D. DR: VIRGIL JOB#: [id number] CC:
[2017-03-09 04:00] VITALS: BP 115/70
[2017-03-09 08:18] VITALS: BP 119/68
[2017-03-09] MEDS: Aspirin EC 81mg tab ORAL SCH (09:00)
[2017-03-09] MEDS: Bisacodyl EC 5mg tab ORAL SCH (09:00)
[2017-03-09] MEDS: Oxybutynin 5mg tab ORAL SCH ×2 (09:00→17:47)
[2017-03-09] MEDS: Docusate 100mg cap ORAL SCH ×2 (09:00→17:46)
[2017-03-09] MEDS: Memantine 10mg tab ORAL SCH (09:00)
[2017-03-09] MEDS: Enalapril 2.5mg tab ORAL SCH (09:00)
[2017-03-09] MEDS: Cefepime HCl 2 GM in NS 110 ML IVPB SCH ×2 (09:38→20:52)
[2017-03-09] MEDS: Heparin 5000 units/ml inj SUBQ SCH ×2 (09:45→20:55)
[2017-03-09] MEDS ORDERED: Tubing IV Secondary IV ONE (10:52)
[2017-03-09] MEDS ORDERED: NS 500ML IV ONE (10:52)
[2017-03-09 12:09] VITALS: BP 124/71
--- NOTE | 2017-03-09 13:45 | Pulmonology Progress Note ---
Assessment/Plan Assessment/Plan IMPRESSION: 1. Atelectasis, doubt pneumonia. 2. Altered mental status, etiology unclear, resolved. 3. Psychosis. 4. Tardive dyskinesia. 5. Coronary heart disease. 6. Hypertension. PLAN: abx high risk of aspiration o2 prn wound care fu labs and cxr prn sitter at the bedsdie Subjective ROS Limited/Unobtainable: Yes Allergies: Coded Allergies: PENICILLINS (Verified Allergy, Unknown, 07/30/08) Subjective lethargic nonverbal minimal po no reports of cp nv or bleed does not get out of bed no fever Objective Last 24 Hour Vital Signs Date Time Temp Pulse Resp B/P (MAP) Pulse Ox O2 Delivery O2 Flow Rate FiO2 03/09/17 12:09 97.7 68 20 124/71 97 Room Air 03/09/17 09:00 119/68 03/09/17 09:00 64 119/68 03/09/17 08:18 98.3 64 19 119/68 96 Room Air 03/09/17 04:00 97.7 67 18 115/70 96 Room Air 03/09/17 00:00 96.4 91 20 120/89 96 Nasal Cannula Intake and Output 03/09/17 03/10/17 19:00 07:00 Intake Total 290 ml Balance 290 ml Intake Oral 180 ml IV Total 110 ml # Voids 1 General Appearance: cachetic HEENT: atraumatic, anicteric, mucous membranes moist Respiratory/Chest: normal breath sounds Cardiovascular: normal rate, regular rhythm, murmur systolic Abdomen: no organomegaly, non distended Extremities: other - contracted Neurologic/Psychiatric: unresponsiveness Microbiology Date/Time Source Procedure Growth Status 03/07/17 17:07 Blood Blood Culture - Preliminary NO GROWTH AFTER 24 HOURS Resulted 03/07/17 16:50 Blood Blood Culture - Preliminary NO GROWTH AFTER 24 HOURS Resulted 03/08/17 04:33 Nasopharynx Influenza Types A,B Antigen (NUPUR) - Final Complete 03/07/17 20:21 Nasal Nares MRSA Culture - Final NO METHICILLIN RESISTANT STAPH AUREUS... Complete Current Medications Medications (Trade) Dose Ordered Sig/Kvng Route PRN Reason Start Time Stop Time Status Last Admin Dose Admin Acetaminophen/ Hydrocodone Bitart ([place] 5/325) 1 tab Q4H PRN ORAL For Pain 03/08/17 03:15 03/15/17 03:14 Amlodipine Besylate (Norvasc) 10 mg DAILY ORAL 03/08/17 09:00 04/07/17 08:59 03/08/17 09:15 Aspirin (Ecotrin) 81 mg DAILY ORAL 03/08/17 09:00 04/07/17 08:59 03/08/17 09:14 Atorvastatin Calcium (Lipitor) 5 mg BEDTIME ORAL 03/08/17 21:00 04/07/17 20:59 Benztropine Mesylate (Cogentin) 0.5 mg QHS ORAL 03/08/17 21:00 04/07/17 20:59 Bisacodyl (Dulcolax) 10 mg DAILY ORAL 03/08/17 09:00 04/07/17 08:59 03/08/17 09:15 Cefepime HCl 2 gm/ Sodium Chloride 110 ml @ 220 mls/hr EVERY 12 HOURS IVPB 03/07/17 21:00 03/14/17 20:59 03/09/17 09:38 Dextrose/Sodium Chloride 1,000 ml @ 50 mls/hr Q20H IV 03/09/17 13:00 04/08/17 12:59 Docusate Sodium (Colace) 100 mg TWICE A DAY ORAL 03/08/17 09:00 04/07/17 08:59 03/08/17 09:15 Enalapril Maleate (Vasotec) 2.5 mg DAILY ORAL 03/08/17 09:00 04/07/17 08:59 03/08/17 09:15 Furosemide (Lasix) 20 mg DAILY ORAL 03/08/17 09:00 04/07/17 08:59 03/08/17 09:15 Heparin Sodium (Porcine) (Heparin 5000 units/ml) 5,000 units EVERY 12 HOURS SUBQ 03/08/17 09:00 04/07/17 08:59 03/09/17 09:45 Memantine (Namenda) 10 mg DAILY ORAL 03/08/17 09:00 04/07/17 08:59 03/08/17 09:16 Mirtazapine (Remeron) 15 mg BEDTIME ORAL 03/08/17 21:00 04/07/17 20:59 Oxybutynin Chloride (Ditropan) 5 mg BID ORAL 03/08/17 18:00 04/07/17 17:59 Potassium Chloride (K-Dur) 20 meq DAILY ORAL 03/09/17 09:00 04/08/17 08:59 Quetiapine Fumarate (SEROquel) 12.5 mg EVERY 6 HOURS PRN ORAL For Anxiety 03/08/17 22:15 04/07/17 22:14 Temazepam (Restoril) 15 mg BEDTIME PRN ORAL Insomnia 03/08/17 03:15 03/15/17 03:14 Vancomycin HCl (Vanco rx to dose) 1 ea DAILY PRN MISC Per rx protocol 03/07/17 19:15 04/06/17 19:14 Vancomycin HCl 1 gm/Dextrose 275 ml @ 183.708 mls/hr Q24H IVPB 03/07/17 22:00 03/12/17 21:59 03/08/17 23:31 JAMES LOERA DO Mar 09, 2017 13:45
--- NOTE | 2017-03-09 13:49 | Infectious Diseases Prog Note ---
Assessment/Plan Problems: (1) Pneumonia Assessment & Plan: rule out aspiration, screening for influenza is negative , continue vancomycin with cefepime empirically , monitor CXR (2) Sepsis Assessment & Plan: continue vancomycin with cefepime empirically pending blood culture (3) Altered awareness, transient Assessment & Plan: suspect due to sepsis, recommend brain image and neuro consult (4) At risk for aspiration Assessment & Plan: recommend tube feeding, will start ivf Subjective ROS Limited/Unobtainable: Yes Allergies: Coded Allergies: PENICILLINS (Verified Allergy, Unknown, 07/30/08) Subjective she is sleeping , but easy to arouse , nonverbal, dosent follow commands , not eating as per nursing staff Objective Vital Signs Last 24 Hour Vital Signs Date Time Temp Pulse Resp B/P (MAP) Pulse Ox O2 Delivery O2 Flow Rate FiO2 03/09/17 12:09 97.7 68 20 124/71 97 Room Air 03/09/17 09:00 119/68 03/09/17 09:00 64 119/68 03/09/17 08:18 98.3 64 19 119/68 96 Room Air 03/09/17 04:00 97.7 67 18 115/70 96 Room Air 03/09/17 00:00 96.4 91 20 120/89 96 Nasal Cannula Height (Feet): 5 Height (Inches): 6.00 Weight (Pounds): 140 General Appearance: WD/WN, no acute distress, cachetic HEENT: normocephalic, atraumatic, anicteric, mucous membranes moist Respiratory/Chest: chest wall non-tender, lungs clear, normal breath sounds, no respiratory distress, no accessory muscle use Cardiovascular: normal peripheral pulses, normal rate, regular rhythm, no gallop/murmur, no JVD Abdomen: normal bowel sounds, soft, non tender, no organomegaly, non distended , no mass, no scars Extremities: no cyanosis, no clubbing Skin: no rash, no lesions, no ulcers Neurologic/Psychiatric: alert Microbiology Date/Time Source Procedure Growth Status 03/07/17 17:07 Blood Blood Culture - Preliminary NO GROWTH AFTER 24 HOURS Resulted 03/07/17 16:50 Blood Blood Culture - Preliminary NO GROWTH AFTER 24 HOURS Resulted 03/08/17 04:33 Nasopharynx Influenza Types A,B Antigen (NUPUR) - Final Complete 03/07/17 20:21 Nasal Nares MRSA Culture - Final NO METHICILLIN RESISTANT STAPH AUREUS... Complete Current Medications Medications (Trade) Dose Ordered Sig/Kvng Route PRN Reason Start Time Stop Time Status Last Admin Dose Admin Acetaminophen/ Hydrocodone Bitart ([place] 5/325) 1 tab Q4H PRN ORAL For Pain 03/08/17 03:15 03/15/17 03:14 Amlodipine Besylate (Norvasc) 10 mg DAILY ORAL 03/08/17 09:00 04/07/17 08:59 03/08/17 09:15 Aspirin (Ecotrin) 81 mg DAILY ORAL 03/08/17 09:00 04/07/17 08:59 03/08/17 09:14 Atorvastatin Calcium (Lipitor) 5 mg BEDTIME ORAL 03/08/17 21:00 04/07/17 20:59 Benztropine Mesylate (Cogentin) 0.5 mg QHS ORAL 03/08/17 21:00 04/07/17 20:59 Bisacodyl (Dulcolax) 10 mg DAILY ORAL 03/08/17 09:00 04/07/17 08:59 03/08/17 09:15 Cefepime HCl 2 gm/ Sodium Chloride 110 ml @ 220 mls/hr EVERY 12 HOURS IVPB 03/07/17 21:00 03/14/17 20:59 03/09/17 09:38 Dextrose/Sodium Chloride 1,000 ml @ 50 mls/hr Q20H IV 03/09/17 13:00 04/08/17 12:59 Docusate Sodium (Colace) 100 mg TWICE A DAY ORAL 03/08/17 09:00 04/07/17 08:59 03/08/17 09:15 Enalapril Maleate (Vasotec) 2.5 mg DAILY ORAL 03/08/17 09:00 04/07/17 08:59 03/08/17 09:15 Furosemide (Lasix) 20 mg DAILY ORAL 03/08/17 09:00 04/07/17 08:59 03/08/17 09:15 Heparin Sodium (Porcine) (Heparin 5000 units/ml) 5,000 units EVERY 12 HOURS SUBQ 03/08/17 09:00 04/07/17 08:59 03/09/17 09:45 Memantine (Namenda) 10 mg DAILY ORAL 03/08/17 09:00 04/07/17 08:59 03/08/17 09:16 Mirtazapine (Remeron) 15 mg BEDTIME ORAL 03/08/17 21:00 04/07/17 20:59 Oxybutynin Chloride (Ditropan) 5 mg BID ORAL 03/08/17 18:00 04/07/17 17:59 Potassium Chloride (K-Dur) 20 meq DAILY ORAL 03/09/17 09:00 04/08/17 08:59 Quetiapine Fumarate (SEROquel) 12.5 mg EVERY 6 HOURS PRN ORAL For Anxiety 03/08/17 22:15 04/07/17 22:14 Temazepam (Restoril) 15 mg BEDTIME PRN ORAL Insomnia 03/08/17 03:15 03/15/17 03:14 Vancomycin HCl (Vanco rx to dose) 1 ea DAILY PRN MISC Per rx protocol 03/07/17 19:15 04/06/17 19:14 Vancomycin HCl 1 gm/Dextrose 275 ml @ 183.708 mls/hr Q24H IVPB 03/07/17 22:00 03/12/17 21:59 03/08/17 23:31 Ayanna Salazar M.D. Mar 09, 2017 13:49
[2017-03-09] MEDS: D5NS 1,000 ML IV SCH (13:51)
[2017-03-09 16:00] VITALS: BP 118/70
[2017-03-09 20:00] VITALS: BP 125/61
--- NOTE | 2017-03-09 20:31 | General Progress Note ---
Assessment/Plan Problem List: (1) Sepsis ICD Codes: A41.9 - Sepsis SNOMED: 95607988 (2) Pneumonia ICD Codes: J18.9 - Pneumonia, unspecified organism SNOMED: 186279519 Qualifiers: Status: progressing Assessment/Plan not eating aspiration risk? consulted gi for possible peg pna improving Subjective ROS Limited/Unobtainable: Yes Constitutional: Reports: no symptoms Allergies: Coded Allergies: PENICILLINS (Verified Allergy, Unknown, 07/30/08) Objective Last 24 Hour Vital Signs Date Time Temp Pulse Resp B/P (MAP) Pulse Ox O2 Delivery O2 Flow Rate FiO2 03/09/17 16:00 98.1 82 19 118/70 97 Room Air 03/09/17 12:09 97.7 68 20 124/71 97 Room Air 03/09/17 09:00 119/68 03/09/17 09:00 64 119/68 03/09/17 08:18 98.3 64 19 119/68 96 Room Air 03/09/17 04:00 97.7 67 18 115/70 96 Room Air 03/09/17 00:00 96.4 91 20 120/89 96 Nasal Cannula Intake and Output 03/09/17 03/10/17 19:00 07:00 Intake Total 660 ml Balance 660 ml Intake Oral 300 ml IV Total 360 ml # Voids 2 Height (Feet): 5 Height (Inches): 6.00 Weight (Pounds): 140 Cardiovascular: normal rate Summer Gaines MD Mar 09, 2017 20:31
--- NOTE | 2017-03-09 20:31 | General Progress Note ---
Assessment/Plan Problem List: (1) Sepsis ICD Codes: A41.9 - Sepsis SNOMED: 31270947 (2) Pneumonia ICD Codes: J18.9 - Pneumonia, unspecified organism SNOMED: 143915158 Qualifiers: Status: progressing Assessment/Plan not eating aspiration risk? consulted gi for possible peg pna improving Subjective ROS Limited/Unobtainable: Yes Constitutional: Reports: no symptoms Allergies: Coded Allergies: PENICILLINS (Verified Allergy, Unknown, 07/30/08) Objective Last 24 Hour Vital Signs Date Time Temp Pulse Resp B/P (MAP) Pulse Ox O2 Delivery O2 Flow Rate FiO2 03/09/17 16:00 98.1 82 19 118/70 97 Room Air 03/09/17 12:09 97.7 68 20 124/71 97 Room Air 03/09/17 09:00 119/68 03/09/17 09:00 64 119/68 03/09/17 08:18 98.3 64 19 119/68 96 Room Air 03/09/17 04:00 97.7 67 18 115/70 96 Room Air 03/09/17 00:00 96.4 91 20 120/89 96 Nasal Cannula Intake and Output 03/09/17 03/10/17 19:00 07:00 Intake Total 660 ml Balance 660 ml Intake Oral 300 ml IV Total 360 ml # Voids 2 Height (Feet): 5 Height (Inches): 6.00 Weight (Pounds): 140 Cardiovascular: normal rate Summer Gaines MD Mar 09, 2017 20:31
--- NOTE | 2017-03-09 20:31 | General Progress Note ---
Assessment/Plan Problem List: (1) Sepsis ICD Codes: A41.9 - Sepsis SNOMED: 78967303 (2) Pneumonia ICD Codes: J18.9 - Pneumonia, unspecified organism SNOMED: 300827155 Qualifiers: Status: progressing Assessment/Plan not eating aspiration risk? consulted gi for possible peg pna improving Subjective ROS Limited/Unobtainable: Yes Constitutional: Reports: no symptoms Allergies: Coded Allergies: PENICILLINS (Verified Allergy, Unknown, 07/30/08) Objective Last 24 Hour Vital Signs Date Time Temp Pulse Resp B/P (MAP) Pulse Ox O2 Delivery O2 Flow Rate FiO2 03/09/17 16:00 98.1 82 19 118/70 97 Room Air 03/09/17 12:09 97.7 68 20 124/71 97 Room Air 03/09/17 09:00 119/68 03/09/17 09:00 64 119/68 03/09/17 08:18 98.3 64 19 119/68 96 Room Air 03/09/17 04:00 97.7 67 18 115/70 96 Room Air 03/09/17 00:00 96.4 91 20 120/89 96 Nasal Cannula Intake and Output 03/09/17 03/10/17 19:00 07:00 Intake Total 660 ml Balance 660 ml Intake Oral 300 ml IV Total 360 ml # Voids 2 Height (Feet): 5 Height (Inches): 6.00 Weight (Pounds): 140 Cardiovascular: normal rate Summer Gaines MD Mar 09, 2017 20:31
[2017-03-09] MEDS: Benztropine 1mg tab ORAL SCH (20:52)
[2017-03-09] MEDS: Vancomycin 1 GM in D5W 275 ML IVPB SCH (22:00)
[2017-03-09] MEDS: Vancomycin 750mg/NS 250ml IVPB SCH (22:53)
[2017-03-10] VITALS: BP 114/57
--- NOTE | 2017-03-10 01:12 | General Progress Note ---
Assessment/Plan Assessment/Plan agitation schizophrenia seroquel 12.5mg q 6hr remeron Subjective Date patient seen: Mar 09, 2017 Allergies: Coded Allergies: PENICILLINS (Verified Allergy, Unknown, 07/30/08) Objective Last 24 Hour Vital Signs Date Time Temp Pulse Resp B/P (MAP) Pulse Ox O2 Delivery O2 Flow Rate FiO2 03/10/17 00:00 97.9 58 20 114/57 100 Room Air 03/09/17 20:00 97.7 65 20 125/61 98 Room Air 03/09/17 16:00 98.1 82 19 118/70 97 Room Air 03/09/17 12:09 97.7 68 20 124/71 97 Room Air 03/09/17 09:00 119/68 03/09/17 09:00 64 119/68 03/09/17 08:18 98.3 64 19 119/68 96 Room Air 03/09/17 04:00 97.7 67 18 115/70 96 Room Air Laboratory Tests 03/09/17 21:05: Vancomycin Level Trough 8.8 Height (Feet): 5 Height (Inches): 6.00 Weight (Pounds): 140 Manny Lester M.D. Mar 10, 2017 01:12
[2017-03-10 04:00] VITALS: BP 122/71
[2017-03-10 08:08] VITALS: BP 140/79
[2017-03-10] MEDS: Cefepime HCl 2 GM in NS 110 ML IVPB SCH ×2 (08:33→20:27)
[2017-03-10] MEDS: D5NS 1,000 ML IV SCH (08:35)
[2017-03-10] MEDS: Heparin 5000 units/ml inj SUBQ SCH ×2 (08:36→20:28)
[2017-03-10] MEDS: Enalapril 2.5mg tab ORAL SCH (09:00)
[2017-03-10] MEDS: Bisacodyl EC 5mg tab ORAL SCH (09:00)
[2017-03-10] MEDS: Memantine 10mg tab ORAL SCH (09:00)
[2017-03-10] MEDS: Docusate 100mg cap ORAL SCH ×2 (09:00→17:29)
[2017-03-10] MEDS: Aspirin EC 81mg tab ORAL SCH (09:00)
[2017-03-10] MEDS: Oxybutynin 5mg tab ORAL SCH ×2 (09:00→17:29)
[2017-03-10] MEDS ORDERED: D5NS 1000ml IV ONE (09:45)
[2017-03-10] MEDS: Vancomycin 750mg/NS 250ml IVPB SCH ×2 (11:50→22:45)
[2017-03-10 12:15] VITALS: BP 135/80
--- NOTE | 2017-03-10 12:53 | Pulmonology Progress Note ---
Assessment/Plan Assessment/Plan IMPRESSION: 1. Atelectasis, doubt pneumonia. 2. Altered mental status, etiology unclear, resolved. 3. Psychosis. 4. Tardive dyskinesia. 5. Coronary heart disease. 6. Hypertension. PLAN: abx high risk of aspiration o2 prn wound care fu labs and cxr prn sitter at the bedsdie Subjective ROS Limited/Unobtainable: Yes Allergies: Coded Allergies: PENICILLINS (Verified Allergy, Unknown, 07/30/08) Subjective lethargic nonverbal no events noted over night minimal po with assistanced only coughing at times no reports of cp nv or bleed does not get out of bed no fever Objective Last 24 Hour Vital Signs Date Time Temp Pulse Resp B/P (MAP) Pulse Ox O2 Delivery O2 Flow Rate FiO2 03/10/17 12:15 98.4 80 19 135/80 100 Room Air 03/10/17 09:00 140/79 03/10/17 09:00 86 140/79 03/10/17 08:08 97.7 86 19 140/79 97 Room Air 03/10/17 04:00 98.1 56 20 122/71 100 Room Air 03/10/17 00:00 97.9 58 20 114/57 100 Room Air 03/09/17 20:00 97.7 65 20 125/61 98 Room Air 03/09/17 16:00 98.1 82 19 118/70 97 Room Air General Appearance: cachetic HEENT: atraumatic, anicteric Respiratory/Chest: rhonchi Cardiovascular: regular rhythm, murmur systolic Abdomen: soft, non tender, non distended Extremities: other - contrac bautista Microbiology Date/Time Source Procedure Growth Status 03/07/17 17:07 Blood Blood Culture - Preliminary NO GROWTH AFTER 48 HOURS Resulted 03/07/17 16:50 Blood Blood Culture - Preliminary NO GROWTH AFTER 48 HOURS Resulted 03/08/17 04:33 Nasopharynx Influenza Types A,B Antigen (NUPUR) - Final Complete 03/07/17 20:21 Nasal Nares MRSA Culture - Final NO METHICILLIN RESISTANT STAPH AUREUS... Complete 03/07/17 20:21 Rectum VRE Culture - Final NO VANCOMYCIN RESISTANT ENTEROCOCCUS ... Complete Laboratory Tests 03/09/17 21:05: Vancomycin Level Trough 8.8 Current Medications Medications (Trade) Dose Ordered Sig/Kvng Route PRN Reason Start Time Stop Time Status Last Admin Dose Admin Acetaminophen/ Hydrocodone Bitart ([place] 5/325) 1 tab Q4H PRN ORAL For Pain 03/08/17 03:15 03/15/17 03:14 Amlodipine Besylate (Norvasc) 10 mg DAILY ORAL 03/08/17 09:00 04/07/17 08:59 03/08/17 09:15 Aspirin (Ecotrin) 81 mg DAILY ORAL 03/08/17 09:00 04/07/17 08:59 03/08/17 09:14 Atorvastatin Calcium (Lipitor) 5 mg BEDTIME ORAL 03/08/17 21:00 04/07/17 20:59 Benztropine Mesylate (Cogentin) 0.5 mg QHS ORAL 03/08/17 21:00 04/07/17 20:59 Bisacodyl (Dulcolax) 10 mg DAILY ORAL 03/08/17 09:00 04/07/17 08:59 03/08/17 09:15 Cefepime HCl 2 gm/ Sodium Chloride 110 ml @ 220 mls/hr EVERY 12 HOURS IVPB 03/07/17 21:00 03/14/17 20:59 03/10/17 08:33 Dextrose/Sodium Chloride 1,000 ml @ 50 mls/hr Q20H IV 03/09/17 13:00 04/08/17 12:59 03/10/17 08:35 Docusate Sodium (Colace) 100 mg TWICE A DAY ORAL 03/08/17 09:00 04/07/17 08:59 03/08/17 09:15 Enalapril Maleate (Vasotec) 2.5 mg DAILY ORAL 03/08/17 09:00 04/07/17 08:59 03/08/17 09:15 Furosemide (Lasix) 20 mg DAILY ORAL 03/08/17 09:00 04/07/17 08:59 03/08/17 09:15 Heparin Sodium (Porcine) (Heparin 5000 units/ml) 5,000 units EVERY 12 HOURS SUBQ 03/08/17 09:00 04/07/17 08:59 03/10/17 08:36 Memantine (Namenda) 10 mg DAILY ORAL 03/08/17 09:00 04/07/17 08:59 03/08/17 09:16 Mirtazapine (Remeron) 15 mg BEDTIME ORAL 03/08/17 21:00 04/07/17 20:59 Oxybutynin Chloride (Ditropan) 5 mg BID ORAL 03/08/17 18:00 04/07/17 17:59 Potassium Chloride (K-Dur) 20 meq DAILY ORAL 03/09/17 09:00 04/08/17 08:59 Quetiapine Fumarate (SEROquel) 12.5 mg EVERY 6 HOURS PRN ORAL For Anxiety 03/08/17 22:15 04/07/17 22:14 Temazepam (Restoril) 15 mg BEDTIME PRN ORAL Insomnia 03/08/17 03:15 03/15/17 03:14 Vancomycin HCl (Vanco rx to dose) 1 ea DAILY PRN MISC Per rx protocol 03/07/17 19:15 04/06/17 19:14 Vancomycin/Sodium Chloride 250 ml @ 166.667 mls/hr Q12HR@1100,2300 IVPB 03/09/17 23:00 03/14/17 22:59 03/10/17 11:50 JAMES LOERA DO Mar 10, 2017 12:53
[2017-03-10 16:00] VITALS: BP 115/66
--- NOTE | 2017-03-10 18:00 | Consultation ---
DATE OF CONSULTATION: 03/10/2017 CHIEF COMPLAINT: Failure to thrive. HISTORY OF PRESENT ILLNESS: Most of the history is per chart. The patient is unable to give a history. The patient has history of psychiatric disorder, lives in a longterm, was transferred to the hospital with possible pneumonia. The patient apparently has not been eating and I called the longterm. Apparently, in the longterm, she is also not eating for a while and lost a lot of weight. PAST MEDICAL HISTORY: 1. Hypertension. 2. Coronary artery disease. 3. Psychiatric disorder. PAST SURGICAL HISTORY: Unknown. ALLERGIES: Penicillin. MEDICATIONS: Please see medication reconciliation list. SOCIAL HISTORY: Currently, lives in a longterm. No recent history of tobacco, alcohol, or drug abuse. FAMILY HISTORY: Noncontributory. REVIEW OF SYSTEMS: Unable to obtain. PHYSICAL EXAMINATION: VITAL SIGNS: Most recent vital signs, temperature is 98.1, pulse 56, respirations 20, and blood pressure is 122/71. HEENT: Normocephalic and atraumatic. Sclerae anicteric. NECK: Supple. No evidence of lymphadenopathy. CARDIOVASCULAR: Regular rhythm. Plus S1 and S2. LUNGS: Decreased breath sounds bilaterally, right more than left. ABDOMEN: Soft and nontender. No rebound. No guarding. EXTREMITIES: No cyanosis, no clubbing, no edema. LABORATORY DATA: White count 7.7, hemoglobin 13, hematocrit 40, and platelet count is 293,000. ASSESSMENT AND PLAN: A 76-year-old female with severe psychiatric disorder, now with failure to thrive. Discussed with the longterm. Apparently, the patient was not eating in a longterm and this has been going on for a while. I talked to the family, the granddaughter, Cookie, and she agreed for the patient to have a feeding tube placement. Plan to do it tomorrow. The patient is scheduled to be NPO after midnight and get a PEG tomorrow. I want to thank Dr. Summer Gaines for this kind referral. Ronnie Martinez M.D. DR: ANABELLE JOB#: [id number] CC: Summre Gaines M.D.; Fax#: [phone]
--- NOTE | 2017-03-10 18:00 | Consultation ---
DATE OF CONSULTATION: 03/10/2017 CHIEF COMPLAINT: Failure to thrive. HISTORY OF PRESENT ILLNESS: Most of the history is per chart. The patient is unable to give a history. The patient has history of psychiatric disorder, lives in a correction, was transferred to the hospital with possible pneumonia. The patient apparently has not been eating and I called the correction. Apparently, in the correction, she is also not eating for a while and lost a lot of weight. PAST MEDICAL HISTORY: 1. Hypertension. 2. Coronary artery disease. 3. Psychiatric disorder. PAST SURGICAL HISTORY: Unknown. ALLERGIES: Penicillin. MEDICATIONS: Please see medication reconciliation list. SOCIAL HISTORY: Currently, lives in a correction. No recent history of tobacco, alcohol, or drug abuse. FAMILY HISTORY: Noncontributory. REVIEW OF SYSTEMS: Unable to obtain. PHYSICAL EXAMINATION: VITAL SIGNS: Most recent vital signs, temperature is 98.1, pulse 56, respirations 20, and blood pressure is 122/71. HEENT: Normocephalic and atraumatic. Sclerae anicteric. NECK: Supple. No evidence of lymphadenopathy. CARDIOVASCULAR: Regular rhythm. Plus S1 and S2. LUNGS: Decreased breath sounds bilaterally, right more than left. ABDOMEN: Soft and nontender. No rebound. No guarding. EXTREMITIES: No cyanosis, no clubbing, no edema. LABORATORY DATA: White count 7.7, hemoglobin 13, hematocrit 40, and platelet count is 293,000. ASSESSMENT AND PLAN: A 76-year-old female with severe psychiatric disorder, now with failure to thrive. Discussed with the correction. Apparently, the patient was not eating in a correction and this has been going on for a while. I talked to the family, the granddaughter, Cookie, and she agreed for the patient to have a feeding tube placement. Plan to do it tomorrow. The patient is scheduled to be NPO after midnight and get a PEG tomorrow. I want to thank Dr. Summer Gaines for this kind referral. Ronnie Martinez M.D. DR: ANABELLE JOB#: [id number] CC: Summer Gaines M.D.; Fax#: [phone]
--- NOTE | 2017-03-10 18:00 | Consultation ---
DATE OF CONSULTATION: 03/10/2017 CHIEF COMPLAINT: Failure to thrive. HISTORY OF PRESENT ILLNESS: Most of the history is per chart. The patient is unable to give a history. The patient has history of psychiatric disorder, lives in a senior living, was transferred to the hospital with possible pneumonia. The patient apparently has not been eating and I called the senior living. Apparently, in the senior living, she is also not eating for a while and lost a lot of weight. PAST MEDICAL HISTORY: 1. Hypertension. 2. Coronary artery disease. 3. Psychiatric disorder. PAST SURGICAL HISTORY: Unknown. ALLERGIES: Penicillin. MEDICATIONS: Please see medication reconciliation list. SOCIAL HISTORY: Currently, lives in a senior living. No recent history of tobacco, alcohol, or drug abuse. FAMILY HISTORY: Noncontributory. REVIEW OF SYSTEMS: Unable to obtain. PHYSICAL EXAMINATION: VITAL SIGNS: Most recent vital signs, temperature is 98.1, pulse 56, respirations 20, and blood pressure is 122/71. HEENT: Normocephalic and atraumatic. Sclerae anicteric. NECK: Supple. No evidence of lymphadenopathy. CARDIOVASCULAR: Regular rhythm. Plus S1 and S2. LUNGS: Decreased breath sounds bilaterally, right more than left. ABDOMEN: Soft and nontender. No rebound. No guarding. EXTREMITIES: No cyanosis, no clubbing, no edema. LABORATORY DATA: White count 7.7, hemoglobin 13, hematocrit 40, and platelet count is 293,000. ASSESSMENT AND PLAN: A 76-year-old female with severe psychiatric disorder, now with failure to thrive. Discussed with the senior living. Apparently, the patient was not eating in a senior living and this has been going on for a while. I talked to the family, the granddaughter, Cookie, and she agreed for the patient to have a feeding tube placement. Plan to do it tomorrow. The patient is scheduled to be NPO after midnight and get a PEG tomorrow. I want to thank Dr. Summer Gaines for this kind referral. Ronnie Martinez M.D. DR: ANABELLE JOB#: [id number] CC: Summer Gaines M.D.; Fax#: [phone]
--- NOTE | 2017-03-10 18:27 | Infectious Diseases Prog Note ---
Assessment/Plan Problems: (1) Pneumonia Assessment & Plan: rule out aspiration, screening for influenza is negative , continue vancomycin with cefepime empirically , monitor CXR (2) Sepsis Assessment & Plan: continue vancomycin with cefepime empirically pending blood culture (3) Altered awareness, transient Assessment & Plan: suspect due to sepsis, recommend brain image and neuro consult (4) At risk for aspiration Assessment & Plan: recommend tube feeding, continue ivf Subjective ROS Limited/Unobtainable: Yes Allergies: Coded Allergies: PENICILLINS (Verified Allergy, Unknown, 07/30/08) Subjective she is easy to arouse , nonverbal, dosent follow commands , not eating as per nursing staff Objective Vital Signs Last 24 Hour Vital Signs Date Time Temp Pulse Resp B/P (MAP) Pulse Ox O2 Delivery O2 Flow Rate FiO2 03/10/17 16:00 97.7 56 19 115/66 98 Room Air 03/10/17 12:15 98.4 80 19 135/80 100 Room Air 03/10/17 09:00 140/79 03/10/17 09:00 86 140/79 03/10/17 08:08 97.7 86 19 140/79 97 Room Air 03/10/17 04:00 98.1 56 20 122/71 100 Room Air 03/10/17 00:00 97.9 58 20 114/57 100 Room Air 03/09/17 20:00 97.7 65 20 125/61 98 Room Air Height (Feet): 5 Height (Inches): 6.00 Weight (Pounds): 140 General Appearance: WD/WN, no acute distress HEENT: normocephalic, atraumatic, anicteric, mucous membranes moist, PERRL Respiratory/Chest: chest wall non-tender, lungs clear, normal breath sounds, no respiratory distress, no accessory muscle use Cardiovascular: normal peripheral pulses, normal rate, regular rhythm, no gallop/murmur, no JVD Abdomen: normal bowel sounds, soft, non tender, no organomegaly, non distended , no mass, no scars Genitourinary: normal external genitalia Extremities: no cyanosis, no clubbing Skin: no rash, no lesions, no ulcers Neurologic/Psychiatric: responsive Microbiology Date/Time Source Procedure Growth Status 03/08/17 04:33 Nasopharynx Influenza Types A,B Antigen (NUPUR) - Final Complete 03/07/17 20:21 Nasal Nares MRSA Culture - Final NO METHICILLIN RESISTANT STAPH AUREUS... Complete 03/07/17 20:21 Rectum VRE Culture - Final NO VANCOMYCIN RESISTANT ENTEROCOCCUS ... Complete Laboratory Tests Test 03/09/17 21:05 Vancomycin Level Trough 8.8 ug/mL (5.0-12.0) Current Medications Medications (Trade) Dose Ordered Sig/Kvng Route PRN Reason Start Time Stop Time Status Last Admin Dose Admin Acetaminophen/ Hydrocodone Bitart ([place] 5/325) 1 tab Q4H PRN ORAL For Pain 03/08/17 03:15 03/15/17 03:14 Amlodipine Besylate (Norvasc) 10 mg DAILY ORAL 03/08/17 09:00 04/07/17 08:59 03/08/17 09:15 Aspirin (Ecotrin) 81 mg DAILY ORAL 03/08/17 09:00 04/07/17 08:59 03/08/17 09:14 Atorvastatin Calcium (Lipitor) 5 mg BEDTIME ORAL 03/08/17 21:00 04/07/17 20:59 Bisacodyl (Dulcolax) 10 mg DAILY ORAL 03/08/17 09:00 04/07/17 08:59 03/08/17 09:15 Cefepime HCl 2 gm/ Sodium Chloride 110 ml @ 220 mls/hr EVERY 12 HOURS IVPB 03/07/17 21:00 03/14/17 20:59 03/10/17 08:33 Dextrose/Sodium Chloride 1,000 ml @ 50 mls/hr Q20H IV 03/09/17 13:00 04/08/17 12:59 03/10/17 08:35 Docusate Sodium (Colace) 100 mg TWICE A DAY ORAL 03/08/17 09:00 04/07/17 08:59 03/08/17 09:15 Enalapril Maleate (Vasotec) 2.5 mg DAILY ORAL 03/08/17 09:00 04/07/17 08:59 03/08/17 09:15 Furosemide (Lasix) 20 mg DAILY ORAL 03/08/17 09:00 04/07/17 08:59 03/08/17 09:15 Heparin Sodium (Porcine) (Heparin 5000 units/ml) 5,000 units EVERY 12 HOURS SUBQ 03/08/17 09:00 04/07/17 08:59 03/10/17 08:36 Mirtazapine (Remeron) 15 mg BEDTIME ORAL 03/08/17 21:00 04/07/17 20:59 Oxybutynin Chloride (Ditropan) 5 mg BID ORAL 03/08/17 18:00 04/07/17 17:59 Potassium Chloride (K-Dur) 20 meq DAILY ORAL 03/09/17 09:00 04/08/17 08:59 Quetiapine Fumarate (SEROquel) 12.5 mg EVERY 6 HOURS PRN ORAL For Anxiety 03/08/17 22:15 04/07/17 22:14 Temazepam (Restoril) 15 mg BEDTIME PRN ORAL Insomnia 03/08/17 03:15 03/15/17 03:14 Vancomycin HCl (Vanco rx to dose) 1 ea DAILY PRN MISC Per rx protocol 03/07/17 19:15 04/06/17 19:14 Vancomycin/Sodium Chloride 250 ml @ 166.667 mls/hr Q12HR@1100,2300 IVPB 03/09/17 23:00 03/14/17 22:59 03/10/17 11:50 Ayanna Salazar M.D. Mar 10, 2017 18:27
--- NOTE | 2017-03-10 18:45 | Cardiology Report ---
APPROVED REPORT EKG Measurement Heart [id number] [place] 160P66 [id number] Normal sinus rhythm Normal ECG
--- NOTE | 2017-03-10 18:45 | Cardiology Report ---
APPROVED REPORT EKG Measurement Heart [id number] [place] 160P66 [id number] Normal sinus rhythm Normal ECG
--- NOTE | 2017-03-10 18:45 | Cardiology Report ---
APPROVED REPORT EKG Measurement Heart [id number] [place] 160P66 [id number] Normal sinus rhythm Normal ECG
[2017-03-10 20:00] VITALS: BP 102/55
--- NOTE | 2017-03-10 21:36 | General Progress Note ---
Assessment/Plan Problem List: (1) Sepsis ICD Codes: A41.9 - Sepsis SNOMED: 08572830 (2) Pneumonia ICD Codes: J18.9 - Pneumonia, unspecified organism SNOMED: 322596659 Qualifiers: Status: progressing Assessment/Plan not eating aspiration risk? lethargic peg decsion per gi sepsis and pna improving Subjective ROS Limited/Unobtainable: Yes Constitutional: Reports: no symptoms Allergies: Coded Allergies: PENICILLINS (Verified Allergy, Unknown, 07/30/08) Objective Last 24 Hour Vital Signs Date Time Temp Pulse Resp B/P (MAP) Pulse Ox O2 Delivery O2 Flow Rate FiO2 03/10/17 20:00 97.5 62 19 102/55 94 Room Air 03/10/17 16:00 97.7 56 19 115/66 98 Room Air 03/10/17 12:15 98.4 80 19 135/80 100 Room Air 03/10/17 09:00 140/79 03/10/17 09:00 86 140/79 03/10/17 08:08 97.7 86 19 140/79 97 Room Air 03/10/17 04:00 98.1 56 20 122/71 100 Room Air 03/10/17 00:00 97.9 58 20 114/57 100 Room Air Intake and Output 03/10/17 03/11/17 19:00 07:00 Intake Total 650.000 ml 50 ml Balance 650.000 ml 50 ml IV Total 650.000 ml 50 ml # Voids 3 Height (Feet): 5 Height (Inches): 6.00 Weight (Pounds): 140 Cardiovascular: normal rate Respiratory/Chest: lungs clear Summer Gaines MD Mar 10, 2017 21:36
--- NOTE | 2017-03-10 21:36 | General Progress Note ---
Assessment/Plan Problem List: (1) Sepsis ICD Codes: A41.9 - Sepsis SNOMED: 58808411 (2) Pneumonia ICD Codes: J18.9 - Pneumonia, unspecified organism SNOMED: 325246527 Qualifiers: Status: progressing Assessment/Plan not eating aspiration risk? lethargic peg decsion per gi sepsis and pna improving Subjective ROS Limited/Unobtainable: Yes Constitutional: Reports: no symptoms Allergies: Coded Allergies: PENICILLINS (Verified Allergy, Unknown, 07/30/08) Objective Last 24 Hour Vital Signs Date Time Temp Pulse Resp B/P (MAP) Pulse Ox O2 Delivery O2 Flow Rate FiO2 03/10/17 20:00 97.5 62 19 102/55 94 Room Air 03/10/17 16:00 97.7 56 19 115/66 98 Room Air 03/10/17 12:15 98.4 80 19 135/80 100 Room Air 03/10/17 09:00 140/79 03/10/17 09:00 86 140/79 03/10/17 08:08 97.7 86 19 140/79 97 Room Air 03/10/17 04:00 98.1 56 20 122/71 100 Room Air 03/10/17 00:00 97.9 58 20 114/57 100 Room Air Intake and Output 03/10/17 03/11/17 19:00 07:00 Intake Total 650.000 ml 50 ml Balance 650.000 ml 50 ml IV Total 650.000 ml 50 ml # Voids 3 Height (Feet): 5 Height (Inches): 6.00 Weight (Pounds): 140 Cardiovascular: normal rate Respiratory/Chest: lungs clear Summer Gaines MD Mar 10, 2017 21:36
--- NOTE | 2017-03-10 21:36 | General Progress Note ---
Assessment/Plan Problem List: (1) Sepsis ICD Codes: A41.9 - Sepsis SNOMED: 74006141 (2) Pneumonia ICD Codes: J18.9 - Pneumonia, unspecified organism SNOMED: 751065031 Qualifiers: Status: progressing Assessment/Plan not eating aspiration risk? lethargic peg decsion per gi sepsis and pna improving Subjective ROS Limited/Unobtainable: Yes Constitutional: Reports: no symptoms Allergies: Coded Allergies: PENICILLINS (Verified Allergy, Unknown, 07/30/08) Objective Last 24 Hour Vital Signs Date Time Temp Pulse Resp B/P (MAP) Pulse Ox O2 Delivery O2 Flow Rate FiO2 03/10/17 20:00 97.5 62 19 102/55 94 Room Air 03/10/17 16:00 97.7 56 19 115/66 98 Room Air 03/10/17 12:15 98.4 80 19 135/80 100 Room Air 03/10/17 09:00 140/79 03/10/17 09:00 86 140/79 03/10/17 08:08 97.7 86 19 140/79 97 Room Air 03/10/17 04:00 98.1 56 20 122/71 100 Room Air 03/10/17 00:00 97.9 58 20 114/57 100 Room Air Intake and Output 03/10/17 03/11/17 19:00 07:00 Intake Total 650.000 ml 50 ml Balance 650.000 ml 50 ml IV Total 650.000 ml 50 ml # Voids 3 Height (Feet): 5 Height (Inches): 6.00 Weight (Pounds): 140 Cardiovascular: normal rate Respiratory/Chest: lungs clear Summer Gaines MD Mar 10, 2017 21:36
[2017-03-11] VITALS: BP 139/66
[2017-03-11 04:00] VITALS: BP 134/63
[2017-03-11] MEDS: D5NS 1,000 ML IV SCH (05:49)
--- NOTE | 2017-03-11 07:18 | Anethesia Preoperative Eval ---
Anesthesia Pre-op PMH/ROS General Date of Evaluation: Mar 11, 2017 Time of Evaluation: 07:00 Anesthesiologist: geoffrey ASA Score: ASA 4 Mallampati Score Class I : Soft palate, uvula, fauces, pillars visible Class II: Soft palate, uvula, fauces visible Class III: Soft palate, base of uvula visible Class IV: Only hard plate visible Mallampati Classification: Class II Surgeon: citlaly Diagnosis: failure to thrive Surgical Procedure: egd/peg Anesthesia History: none Family History: no anesthesia problems Allergies: Coded Allergies: PENICILLINS (Verified Allergy, Unknown, 07/30/08) Medications: see eMAR Past Medical History Cardiovascular: Reports: HTN, other - hypercholesterolemia Neurologic/Psychiatric: Reports: other - schizophrenia, psychosis Musculoskeletal/Integumentary: Reports: other - right bka Anesthesia Pre-op Phys. Exam Physician Exam Last Vital Signs Date Time Temp Pulse Resp B/P (MAP) Pulse Ox O2 Delivery O2 Flow Rate FiO2 03/11/17 04:00 97.9 47 18 134/63 100 Room Air Constitutional: NAD Neurologic: other Cardiovascular: RRR Respiratory: other Gastrointestinal: S/NT/ND Airway Exam Mallampati Score: Class II MO: full Neck: decreased rom TMD: 2fb ROM: limited - contracture Teeth: missing Anesthesia Pre-op A/P Labs Labs Test 03/08/17 10:00 03/09/17 21:05 White Blood Count 7.7 K/UL (4.8-10.8) Red Blood Count 4.21 M/UL (4.20-5.40) Hemoglobin 13.5 G/DL (12.0-16.0) Hematocrit 40.2 % (37.0-47.0) Mean Corpuscular Volume 95 FL (80-99) Mean Corpuscular Hemoglobin 32.0 PG (27.0-31.0) Mean Corpuscular Hemoglobin Concent 33.5 G/DL (32.0-36.0) Red Cell Distribution Width 12.9 % (11.6-14.8) Platelet Count 293 K/UL (150-450) Mean Platelet Volume 5.4 FL (6.5-10.1) Neutrophils (%) (Auto) 54.8 % (45.0-75.0) Lymphocytes (%) (Auto) 34.8 % (20.0-45.0) Monocytes (%) (Auto) 8.1 % (1.0-10.0) Eosinophils (%) (Auto) 1.7 % (0.0-3.0) Basophils (%) (Auto) 0.7 % (0.0-2.0) Sodium Level 141 MMOL/L (136-145) Potassium Level 4.1 MMOL/L (3.5-5.1) Chloride Level 108 MMOL/L (98-107) Carbon Dioxide Level 26 MMOL/L (21-32) Anion Gap 7 mmol/L (5-15) Blood Urea Nitrogen 12 mg/dL (7-18) Creatinine 0.8 MG/DL (0.55-1.30) Estimat Glomerular Filtration Rate mL/min (>60) Glucose Level 100 MG/DL (74-106) Calcium Level 9.1 MG/DL (8.5-10.1) Vancomycin Level Trough 8.8 ug/mL (5.0-12.0) Risk Assessment & Plan Assessment: asa3 Plan: mac Status Change Before Surgery: No Pre-Antibiotics Drug: MARY ALICE Davidson Mar 11, 2017 07:18
[2017-03-11 08:00] VITALS: BP 130/61
[2017-03-11] MEDS: Cefepime HCl 2 GM in NS 110 ML IVPB SCH ×2 (08:43→21:37)
[2017-03-11] MEDS: Oxybutynin 5mg tab ORAL SCH ×2 (08:49→18:00)
[2017-03-11] MEDS: Bisacodyl EC 5mg tab ORAL SCH (08:49)
[2017-03-11] MEDS: Docusate 100mg cap ORAL SCH ×2 (08:49→18:00)
[2017-03-11] MEDS: Aspirin EC 81mg tab ORAL SCH (08:49)
[2017-03-11] MEDS: Heparin 5000 units/ml inj SUBQ SCH ×2 (08:50→21:06)
[2017-03-11] MEDS: Enalapril 2.5mg tab ORAL SCH (08:50)
--- NOTE | 2017-03-11 09:03 | Pulmonology Progress Note ---
Assessment/Plan Assessment/Plan 1. Atelectasis, doubt pneumonia. 2. Altered mental status, etiology unclear, resolved. 3. Psychosis. 4. Tardive dyskinesia. 5. Coronary heart disease. 6. Hypertension. PLAN: abx aspiration precautions o2 prn wound care EGD/PEG Subjective ROS Limited/Unobtainable: Yes Allergies: Coded Allergies: PENICILLINS (Verified Allergy, Unknown, 07/30/08) Objective Last 24 Hour Vital Signs Date Time Temp Pulse Resp B/P (MAP) Pulse Ox O2 Delivery O2 Flow Rate FiO2 03/11/17 08:00 98.4 49 22 130/61 98 Room Air 03/11/17 04:00 97.9 47 18 134/63 100 Room Air 03/11/17 00:00 97.3 50 19 139/66 98 Room Air 03/10/17 20:00 97.5 62 19 102/55 94 Room Air 03/10/17 16:00 97.7 56 19 115/66 98 Room Air 03/10/17 12:15 98.4 80 19 135/80 100 Room Air General Appearance: no acute distress HEENT: atraumatic Respiratory/Chest: lungs clear Cardiovascular: normal rate Abdomen: soft, non tender Extremities: no cyanosis, no clubbing, no edema, other - RLE amputation Current Medications Medications (Trade) Dose Ordered Sig/Kvng Route PRN Reason Start Time Stop Time Status Last Admin Dose Admin Acetaminophen/ Hydrocodone Bitart ([place] 5/325) 1 tab Q4H PRN ORAL For Pain 03/08/17 03:15 03/15/17 03:14 Amlodipine Besylate (Norvasc) 10 mg DAILY ORAL 03/08/17 09:00 04/07/17 08:59 03/08/17 09:15 Aspirin (Ecotrin) 81 mg DAILY ORAL 03/08/17 09:00 04/07/17 08:59 03/08/17 09:14 Atorvastatin Calcium (Lipitor) 5 mg BEDTIME ORAL 03/08/17 21:00 04/07/17 20:59 Bisacodyl (Dulcolax) 10 mg DAILY ORAL 03/08/17 09:00 04/07/17 08:59 03/08/17 09:15 Cefepime HCl 2 gm/ Sodium Chloride 110 ml @ 220 mls/hr EVERY 12 HOURS IVPB 03/07/17 21:00 03/14/17 20:59 03/11/17 08:43 Dextrose/Sodium Chloride 1,000 ml @ 50 mls/hr Q20H IV 03/09/17 13:00 04/08/17 12:59 03/11/17 05:49 Docusate Sodium (Colace) 100 mg TWICE A DAY ORAL 03/08/17 09:00 04/07/17 08:59 03/08/17 09:15 Enalapril Maleate (Vasotec) 2.5 mg DAILY ORAL 03/08/17 09:00 04/07/17 08:59 03/08/17 09:15 Furosemide (Lasix) 20 mg DAILY ORAL 03/08/17 09:00 04/07/17 08:59 03/08/17 09:15 Heparin Sodium (Porcine) (Heparin 5000 units/ml) 5,000 units EVERY 12 HOURS SUBQ 03/08/17 09:00 04/07/17 08:59 03/10/17 08:36 Mirtazapine (Remeron) 15 mg BEDTIME ORAL 03/08/17 21:00 04/07/17 20:59 Oxybutynin Chloride (Ditropan) 5 mg BID ORAL 03/08/17 18:00 04/07/17 17:59 Potassium Chloride (K-Dur) 20 meq DAILY ORAL 03/09/17 09:00 04/08/17 08:59 Quetiapine Fumarate (SEROquel) 12.5 mg EVERY 6 HOURS PRN ORAL For Anxiety 03/08/17 22:15 04/07/17 22:14 Temazepam (Restoril) 15 mg BEDTIME PRN ORAL Insomnia 03/08/17 03:15 03/15/17 03:14 Vancomycin HCl (Vanco rx to dose) 1 ea DAILY PRN MISC Per rx protocol 03/07/17 19:15 04/06/17 19:14 Vancomycin/Sodium Chloride 250 ml @ 166.667 mls/hr Q12HR@1100,2300 IVPB 03/09/17 23:00 03/14/17 22:59 03/10/17 22:45 KENIA DOYLE Mar 11, 2017 09:03
--- NOTE | 2017-03-11 09:08 | Diagnostic Imaging Report ---
Indications: Altered level of consciousness Technique: Spiral acquisitions obtained through the brain. Angled axial and coronal 5 x 5 mm slices were reconstructed. Total dose length product 1277 mGycm. CTDI vol(s) 70 mGy. Dose reduction achieved using automated exposure control Comparison: None Findings: There is a large area of encephalomalacia in the right posterior parietal lobe. Small area of encephalomalacia is seen in the left posterior inferior medial parietal lobe. There is also encephalomalacia of the left cerebellar hemisphere. There as extensive age-related enlargement of ventricles and extra axial CSF spaces. There are bilateral basal ganglia lacunar infarcts. There is extensive periventricular deep white matter chronic ischemic change. Visualized orbits and sinuses are unremarkable. The calvarium is intact. Impression: Chronic and age-related changes, as described Multiple old infarcts, as described Negative for acute intracranial bleed or mass effect The CT scanner at [facility] is accredited by the [employer] and the scans are performed using protocols designed to limit radiation exposure to as low as reasonably achievable to attain images of sufficient resolution adequate for diagnostic evaluation.
[2017-03-11 09:14] LABS: BASOPHILS % (AUTO) 0.9 % (0.0-2.0); EOSINOPHILS % (AUTO) 2.7 % (0.0-3.0); LYMPHOCYTES % (AUTO) 34.9 % (20.0-45.0); MEAN CORPUSCULAR VOLUME 94 FL (80-99); MONOCYTES % (AUTO) 7.9 % (1.0-10.0); NEUTROPHILS % (AUTO) 53.7 % (45.0-75.0); PLATELET COUNT 291 K/UL (150-450); RED BLOOD COUNT 4.03 M/UL (4.20-5.40); RED CELL DISTRIBUTION WIDTH 12.4 % (11.6-14.8); WHITE BLOOD COUNT 5.8 K/UL (4.8-10.8)
[2017-03-11 09:32] LABS: ANION GAP 10 mmol/L (5-15); BLOOD UREA NITROGEN 10 mg/dL (7-18); CALCIUM 8.8 MG/DL (8.5-10.1); CARBON DIOXIDE 23 MMOL/L (21-32); CHLORIDE 108 MMOL/L (98-107); CREATININE 0.7 MG/DL (0.55-1.30); POTASSIUM 3.5 MMOL/L (3.5-5.1); SODIUM 141 MMOL/L (136-145)
--- NOTE | 2017-03-11 11:14 | Diagnostic Imaging Report ---
Indication: COPD, shortness of breath Technique: One view of the chest Comparison: 10 26 x 17 Findings: There is persistent atelectasis at the left lung base. Atelectasis and possibly some hazy consolidation is seen at the left lung base, increased from previously. There is slight blunting of left costophrenic sulcus, which may also represent some pleural fluid. The heart size is upper limits of normal. Aorta is tortuous ectatic and calcified Impression: Slightly increased left basilar opacity, likely increasing consolidation and/or pleural fluid, over 4 days
--- NOTE | 2017-03-11 11:39 | Pre-Procedure Note/Attestation ---
Pre-Procedure Note/Attestation Complete Prior to Procedure Planned Procedure: not applicable Procedure Narrative: esophagogastroduodenoscopy peg Indications for Procedure Pre-Operative Diagnosis: dysphagia Attestation I attest that I discussed the nature of the procedure; its benefits; risks and complications; and alternatives (and the risks and benefits of such alternatives ), prior to the procedure, with the patient (or the patient's legal membership sales representative). I attest that, if there was a reasonable possibility of needing a blood transfusion, the patient (or the patient's legal membership sales representative) was given the [facility] standardized written summary, pursuant to the Emre Lori Blood Safety Act ([place] Health and Safety Code # 1645, as amended). I attest that I re-evaluated the patient just prior to the surgery and that there has been no change in the patient's H&P, except as documented below: STEVE MUELLER Mar 11, 2017 11:39
--- NOTE | 2017-03-11 11:39 | Pre-Procedure Note/Attestation ---
Pre-Procedure Note/Attestation Complete Prior to Procedure Planned Procedure: not applicable Procedure Narrative: esophagogastroduodenoscopy peg Indications for Procedure Pre-Operative Diagnosis: dysphagia Attestation I attest that I discussed the nature of the procedure; its benefits; risks and complications; and alternatives (and the risks and benefits of such alternatives ), prior to the procedure, with the patient (or the patient's legal security representative). I attest that, if there was a reasonable possibility of needing a blood transfusion, the patient (or the patient's legal security representative) was given the [facility] standardized written summary, pursuant to the Emre Lori Blood Safety Act ([place] Health and Safety Code # 1645, as amended). I attest that I re-evaluated the patient just prior to the surgery and that there has been no change in the patient's H&P, except as documented below: STEVE MUELLER Mar 11, 2017 11:39
--- NOTE | 2017-03-11 11:39 | Pre-Procedure Note/Attestation ---
Pre-Procedure Note/Attestation Complete Prior to Procedure Planned Procedure: not applicable Procedure Narrative: esophagogastroduodenoscopy peg Indications for Procedure Pre-Operative Diagnosis: dysphagia Attestation I attest that I discussed the nature of the procedure; its benefits; risks and complications; and alternatives (and the risks and benefits of such alternatives ), prior to the procedure, with the patient (or the patient's legal sales donor recruitment representative). I attest that, if there was a reasonable possibility of needing a blood transfusion, the patient (or the patient's legal sales donor recruitment representative) was given the [facility] standardized written summary, pursuant to the Emre Lori Blood Safety Act ([place] Health and Safety Code # 1645, as amended). I attest that I re-evaluated the patient just prior to the surgery and that there has been no change in the patient's H&P, except as documented below: STEVE MUELLER Mar 11, 2017 11:39
--- NOTE | 2017-03-11 11:40 | General Progress Note ---
Assessment/Plan Problem List: (1) Altered mental status ICD Codes: R41.82 - Altered mental status, unspecified SNOMED: 206844260 (2) UTI (lower urinary tract infection) ICD Codes: N39.0 - UTI (lower urinary tract infection) SNOMED: 7358283 (3) At risk for dehydration due to poor fluid intake ICD Codes: Z91.89 - Other specified personal risk factors, not elsewhere classified SNOMED: 21374233, 864257322 Assessment/Plan plan PEG today Subjective ROS Limited/Unobtainable: No Allergies: Coded Allergies: PENICILLINS (Verified Allergy, Unknown, 07/30/08) Objective Last 24 Hour Vital Signs Date Time Temp Pulse Resp B/P (MAP) Pulse Ox O2 Delivery O2 Flow Rate FiO2 03/11/17 08:00 98.4 49 22 130/61 98 Room Air 03/11/17 04:00 97.9 47 18 134/63 100 Room Air 03/11/17 00:00 97.3 50 19 139/66 98 Room Air 03/10/17 20:00 97.5 62 19 102/55 94 Room Air 03/10/17 16:00 97.7 56 19 115/66 98 Room Air 03/10/17 12:15 98.4 80 19 135/80 100 Room Air Laboratory Tests 03/11/17 07:40: White Blood Count 5.8, Red Blood Count 4.03L, Hemoglobin 13.0, Hematocrit 38.0, Mean Corpuscular Volume 94, Mean Corpuscular Hemoglobin 32.3H, Mean Corpuscular Hemoglobin Concent 34.2, Red Cell Distribution Width 12.4, Platelet Count 291, Mean Platelet Volume 5.5L, Neutrophils (%) (Auto) 53.7, Lymphocytes (%) (Auto) 34.9, Monocytes (%) (Auto) 7.9, Eosinophils (%) (Auto) 2.7, Basophils (%) (Auto ) 0.9, Prothrombin Time 10.7, Prothromb Time International Ratio 1.0, Sodium Level 141, Potassium Level 3.5, Chloride Level 108H, Carbon Dioxide Level 23, Anion Gap 10, Blood Urea Nitrogen 10, Creatinine 0.7, Estimat Glomerular Filtration Rate , Glucose Level 95, Calcium Level 8.8 03/11/17 10:00: Vancomycin Level Trough 16.1H Height (Feet): 5 Height (Inches): 3.00 Weight (Pounds): 115 General Appearance: no apparent distress EENT: normal ENT inspection Neck: supple Cardiovascular: normal rate Respiratory/Chest: decreased breath sounds Abdomen: normal bowel sounds, non tender, soft Extremities: non-tender STEVE MUELLER Mar 11, 2017 11:40
--- NOTE | 2017-03-11 11:40 | General Progress Note ---
Assessment/Plan Problem List: (1) Altered mental status ICD Codes: R41.82 - Altered mental status, unspecified SNOMED: 880995076 (2) UTI (lower urinary tract infection) ICD Codes: N39.0 - UTI (lower urinary tract infection) SNOMED: 2820265 (3) At risk for dehydration due to poor fluid intake ICD Codes: Z91.89 - Other specified personal risk factors, not elsewhere classified SNOMED: 85246145, 224146229 Assessment/Plan plan PEG today Subjective ROS Limited/Unobtainable: No Allergies: Coded Allergies: PENICILLINS (Verified Allergy, Unknown, 07/30/08) Objective Last 24 Hour Vital Signs Date Time Temp Pulse Resp B/P (MAP) Pulse Ox O2 Delivery O2 Flow Rate FiO2 03/11/17 08:00 98.4 49 22 130/61 98 Room Air 03/11/17 04:00 97.9 47 18 134/63 100 Room Air 03/11/17 00:00 97.3 50 19 139/66 98 Room Air 03/10/17 20:00 97.5 62 19 102/55 94 Room Air 03/10/17 16:00 97.7 56 19 115/66 98 Room Air 03/10/17 12:15 98.4 80 19 135/80 100 Room Air Laboratory Tests 03/11/17 07:40: White Blood Count 5.8, Red Blood Count 4.03L, Hemoglobin 13.0, Hematocrit 38.0, Mean Corpuscular Volume 94, Mean Corpuscular Hemoglobin 32.3H, Mean Corpuscular Hemoglobin Concent 34.2, Red Cell Distribution Width 12.4, Platelet Count 291, Mean Platelet Volume 5.5L, Neutrophils (%) (Auto) 53.7, Lymphocytes (%) (Auto) 34.9, Monocytes (%) (Auto) 7.9, Eosinophils (%) (Auto) 2.7, Basophils (%) (Auto ) 0.9, Prothrombin Time 10.7, Prothromb Time International Ratio 1.0, Sodium Level 141, Potassium Level 3.5, Chloride Level 108H, Carbon Dioxide Level 23, Anion Gap 10, Blood Urea Nitrogen 10, Creatinine 0.7, Estimat Glomerular Filtration Rate , Glucose Level 95, Calcium Level 8.8 03/11/17 10:00: Vancomycin Level Trough 16.1H Height (Feet): 5 Height (Inches): 3.00 Weight (Pounds): 115 General Appearance: no apparent distress EENT: normal ENT inspection Neck: supple Cardiovascular: normal rate Respiratory/Chest: decreased breath sounds Abdomen: normal bowel sounds, non tender, soft Extremities: non-tender STEVE MUELLER Mar 11, 2017 11:40
--- NOTE | 2017-03-11 11:40 | General Progress Note ---
Assessment/Plan Problem List: (1) Altered mental status ICD Codes: R41.82 - Altered mental status, unspecified SNOMED: 666254128 (2) UTI (lower urinary tract infection) ICD Codes: N39.0 - UTI (lower urinary tract infection) SNOMED: 7758850 (3) At risk for dehydration due to poor fluid intake ICD Codes: Z91.89 - Other specified personal risk factors, not elsewhere classified SNOMED: 73850289, 235794796 Assessment/Plan plan PEG today Subjective ROS Limited/Unobtainable: No Allergies: Coded Allergies: PENICILLINS (Verified Allergy, Unknown, 07/30/08) Objective Last 24 Hour Vital Signs Date Time Temp Pulse Resp B/P (MAP) Pulse Ox O2 Delivery O2 Flow Rate FiO2 03/11/17 08:00 98.4 49 22 130/61 98 Room Air 03/11/17 04:00 97.9 47 18 134/63 100 Room Air 03/11/17 00:00 97.3 50 19 139/66 98 Room Air 03/10/17 20:00 97.5 62 19 102/55 94 Room Air 03/10/17 16:00 97.7 56 19 115/66 98 Room Air 03/10/17 12:15 98.4 80 19 135/80 100 Room Air Laboratory Tests 03/11/17 07:40: White Blood Count 5.8, Red Blood Count 4.03L, Hemoglobin 13.0, Hematocrit 38.0, Mean Corpuscular Volume 94, Mean Corpuscular Hemoglobin 32.3H, Mean Corpuscular Hemoglobin Concent 34.2, Red Cell Distribution Width 12.4, Platelet Count 291, Mean Platelet Volume 5.5L, Neutrophils (%) (Auto) 53.7, Lymphocytes (%) (Auto) 34.9, Monocytes (%) (Auto) 7.9, Eosinophils (%) (Auto) 2.7, Basophils (%) (Auto ) 0.9, Prothrombin Time 10.7, Prothromb Time International Ratio 1.0, Sodium Level 141, Potassium Level 3.5, Chloride Level 108H, Carbon Dioxide Level 23, Anion Gap 10, Blood Urea Nitrogen 10, Creatinine 0.7, Estimat Glomerular Filtration Rate , Glucose Level 95, Calcium Level 8.8 03/11/17 10:00: Vancomycin Level Trough 16.1H Height (Feet): 5 Height (Inches): 3.00 Weight (Pounds): 115 General Appearance: no apparent distress EENT: normal ENT inspection Neck: supple Cardiovascular: normal rate Respiratory/Chest: decreased breath sounds Abdomen: normal bowel sounds, non tender, soft Extremities: non-tender STEVE MUELLER Mar 11, 2017 11:40
--- NOTE | 2017-03-11 12:06 | Neurology Progress Note ---
Interim History Interim History ROS Limited/Unobtainable: No Objective Physical Exam Last Vital Signs Date Time Temp Pulse Resp B/P (MAP) Pulse Ox O2 Delivery O2 Flow Rate FiO2 03/11/17 08:00 98.4 49 22 130/61 98 Room Air Laboratory Tests Test 03/11/17 07:40 03/11/17 10:00 White Blood Count 5.8 K/UL (4.8-10.8) Red Blood Count 4.03 M/UL (4.20-5.40) L Hemoglobin 13.0 G/DL (12.0-16.0) Hematocrit 38.0 % (37.0-47.0) Mean Corpuscular Volume 94 FL (80-99) Mean Corpuscular Hemoglobin 32.3 PG (27.0-31.0) H Mean Corpuscular Hemoglobin Concent 34.2 G/DL (32.0-36.0) Red Cell Distribution Width 12.4 % (11.6-14.8) Platelet Count 291 K/UL (150-450) Mean Platelet Volume 5.5 FL (6.5-10.1) L Neutrophils (%) (Auto) 53.7 % (45.0-75.0) Lymphocytes (%) (Auto) 34.9 % (20.0-45.0) Monocytes (%) (Auto) 7.9 % (1.0-10.0) Eosinophils (%) (Auto) 2.7 % (0.0-3.0) Basophils (%) (Auto) 0.9 % (0.0-2.0) Prothrombin Time 10.7 SEC (9.30-11.50) Prothromb Time International Ratio 1.0 (0.9-1.1) Sodium Level 141 MMOL/L (136-145) Potassium Level 3.5 MMOL/L (3.5-5.1) Chloride Level 108 MMOL/L (98-107) H Carbon Dioxide Level 23 MMOL/L (21-32) Anion Gap 10 mmol/L (5-15) Blood Urea Nitrogen 10 mg/dL (7-18) Creatinine 0.7 MG/DL (0.55-1.30) Estimat Glomerular Filtration Rate mL/min (>60) Glucose Level 95 MG/DL (74-106) Calcium Level 8.8 MG/DL (8.5-10.1) Vancomycin Level Trough 16.1 ug/mL (5.0-12.0) H Impression/Recommendations Status: progressing Recommendations # [id number] IRAIS MUNOZ Mar 11, 2017 12:06
[2017-03-11] MEDS: Vancomycin 750mg/NS 250ml IVPB SCH ×2 (12:10→23:21)
[2017-03-11] MEDS ORDERED: NS 500ML IV ONE (12:35)
--- NOTE | 2017-03-11 12:45 | General Progress Note ---
Assessment/Plan Problem List: (1) Altered mental status ICD Codes: R41.82 - Altered mental status, unspecified SNOMED: 625300916 (2) UTI (lower urinary tract infection) ICD Codes: N39.0 - UTI (lower urinary tract infection) SNOMED: 7474682 (3) At risk for dehydration due to poor fluid intake ICD Codes: Z91.89 - Other specified personal risk factors, not elsewhere classified SNOMED: 24805682, 444472815 Assessment/Plan PEG today was canceled by anesthesia dur to bradycardia pending cardiology clearance Subjective ROS Limited/Unobtainable: No Allergies: Coded Allergies: PENICILLINS (Verified Allergy, Unknown, 07/30/08) Objective Last 24 Hour Vital Signs Date Time Temp Pulse Resp B/P (MAP) Pulse Ox O2 Delivery O2 Flow Rate FiO2 03/11/17 08:00 98.4 49 22 130/61 98 Room Air 03/11/17 04:00 97.9 47 18 134/63 100 Room Air 03/11/17 00:00 97.3 50 19 139/66 98 Room Air 03/10/17 20:00 97.5 62 19 102/55 94 Room Air 03/10/17 16:00 97.7 56 19 115/66 98 Room Air Laboratory Tests 03/11/17 07:40: White Blood Count 5.8, Red Blood Count 4.03L, Hemoglobin 13.0, Hematocrit 38.0, Mean Corpuscular Volume 94, Mean Corpuscular Hemoglobin 32.3H, Mean Corpuscular Hemoglobin Concent 34.2, Red Cell Distribution Width 12.4, Platelet Count 291, Mean Platelet Volume 5.5L, Neutrophils (%) (Auto) 53.7, Lymphocytes (%) (Auto) 34.9, Monocytes (%) (Auto) 7.9, Eosinophils (%) (Auto) 2.7, Basophils (%) (Auto ) 0.9, Prothrombin Time 10.7, Prothromb Time International Ratio 1.0, Sodium Level 141, Potassium Level 3.5, Chloride Level 108H, Carbon Dioxide Level 23, Anion Gap 10, Blood Urea Nitrogen 10, Creatinine 0.7, Estimat Glomerular Filtration Rate , Glucose Level 95, Calcium Level 8.8 03/11/17 10:00: Vancomycin Level Trough 16.1H Height (Feet): 5 Height (Inches): 3.00 Weight (Pounds): 115 General Appearance: no apparent distress EENT: normal ENT inspection Neck: supple Cardiovascular: normal rate Respiratory/Chest: decreased breath sounds Abdomen: normal bowel sounds, non tender, soft Extremities: non-tender STEVE MUELLER Mar 11, 2017 12:45
--- NOTE | 2017-03-11 12:45 | General Progress Note ---
Assessment/Plan Problem List: (1) Altered mental status ICD Codes: R41.82 - Altered mental status, unspecified SNOMED: 300238335 (2) UTI (lower urinary tract infection) ICD Codes: N39.0 - UTI (lower urinary tract infection) SNOMED: 3328507 (3) At risk for dehydration due to poor fluid intake ICD Codes: Z91.89 - Other specified personal risk factors, not elsewhere classified SNOMED: 85635595, 868043880 Assessment/Plan PEG today was canceled by anesthesia dur to bradycardia pending cardiology clearance Subjective ROS Limited/Unobtainable: No Allergies: Coded Allergies: PENICILLINS (Verified Allergy, Unknown, 07/30/08) Objective Last 24 Hour Vital Signs Date Time Temp Pulse Resp B/P (MAP) Pulse Ox O2 Delivery O2 Flow Rate FiO2 03/11/17 08:00 98.4 49 22 130/61 98 Room Air 03/11/17 04:00 97.9 47 18 134/63 100 Room Air 03/11/17 00:00 97.3 50 19 139/66 98 Room Air 03/10/17 20:00 97.5 62 19 102/55 94 Room Air 03/10/17 16:00 97.7 56 19 115/66 98 Room Air Laboratory Tests 03/11/17 07:40: White Blood Count 5.8, Red Blood Count 4.03L, Hemoglobin 13.0, Hematocrit 38.0, Mean Corpuscular Volume 94, Mean Corpuscular Hemoglobin 32.3H, Mean Corpuscular Hemoglobin Concent 34.2, Red Cell Distribution Width 12.4, Platelet Count 291, Mean Platelet Volume 5.5L, Neutrophils (%) (Auto) 53.7, Lymphocytes (%) (Auto) 34.9, Monocytes (%) (Auto) 7.9, Eosinophils (%) (Auto) 2.7, Basophils (%) (Auto ) 0.9, Prothrombin Time 10.7, Prothromb Time International Ratio 1.0, Sodium Level 141, Potassium Level 3.5, Chloride Level 108H, Carbon Dioxide Level 23, Anion Gap 10, Blood Urea Nitrogen 10, Creatinine 0.7, Estimat Glomerular Filtration Rate , Glucose Level 95, Calcium Level 8.8 03/11/17 10:00: Vancomycin Level Trough 16.1H Height (Feet): 5 Height (Inches): 3.00 Weight (Pounds): 115 General Appearance: no apparent distress EENT: normal ENT inspection Neck: supple Cardiovascular: normal rate Respiratory/Chest: decreased breath sounds Abdomen: normal bowel sounds, non tender, soft Extremities: non-tender STEVE MUELLER Mar 11, 2017 12:45
--- NOTE | 2017-03-11 12:45 | General Progress Note ---
Assessment/Plan Problem List: (1) Altered mental status ICD Codes: R41.82 - Altered mental status, unspecified SNOMED: 157734564 (2) UTI (lower urinary tract infection) ICD Codes: N39.0 - UTI (lower urinary tract infection) SNOMED: 4661527 (3) At risk for dehydration due to poor fluid intake ICD Codes: Z91.89 - Other specified personal risk factors, not elsewhere classified SNOMED: 31657478, [id number] Assessment/Plan PEG today was canceled by anesthesia dur to bradycardia pending cardiology clearance Subjective ROS Limited/Unobtainable: No Allergies: Coded Allergies: PENICILLINS (Verified Allergy, Unknown, 07/30/08) Objective Last 24 Hour Vital Signs Date Time Temp Pulse Resp B/P (MAP) Pulse Ox O2 Delivery O2 Flow Rate FiO2 03/11/17 08:00 98.4 49 22 130/61 98 Room Air 03/11/17 04:00 97.9 47 18 134/63 100 Room Air 03/11/17 00:00 97.3 50 19 139/66 98 Room Air 03/10/17 20:00 97.5 62 19 102/55 94 Room Air 03/10/17 16:00 97.7 56 19 115/66 98 Room Air Laboratory Tests 03/11/17 07:40: White Blood Count 5.8, Red Blood Count 4.03L, Hemoglobin 13.0, Hematocrit 38.0, Mean Corpuscular Volume 94, Mean Corpuscular Hemoglobin 32.3H, Mean Corpuscular Hemoglobin Concent 34.2, Red Cell Distribution Width 12.4, Platelet Count 291, Mean Platelet Volume 5.5L, Neutrophils (%) (Auto) 53.7, Lymphocytes (%) (Auto) 34.9, Monocytes (%) (Auto) 7.9, Eosinophils (%) (Auto) 2.7, Basophils (%) (Auto ) 0.9, Prothrombin Time 10.7, Prothromb Time International Ratio 1.0, Sodium Level 141, Potassium Level 3.5, Chloride Level 108H, Carbon Dioxide Level 23, Anion Gap 10, Blood Urea Nitrogen 10, Creatinine 0.7, Estimat Glomerular Filtration Rate , Glucose Level 95, Calcium Level 8.8 03/11/17 10:00: Vancomycin Level Trough 16.1H Height (Feet): 5 Height (Inches): 3.00 Weight (Pounds): 115 General Appearance: no apparent distress EENT: normal ENT inspection Neck: supple Cardiovascular: normal rate Respiratory/Chest: decreased breath sounds Abdomen: normal bowel sounds, non tender, soft Extremities: non-tender STEVE MUELLER Mar 11, 2017 12:45
[2017-03-11] MEDS ORDERED: D5NS 1000ml IV ONE (13:44)
--- NOTE | 2017-03-11 14:25 | Cardiac Electrophysiology PN ---
Subjective Subjective [id number] Objective Last 24 Hour Vital Signs Date Time Temp Pulse Resp B/P (MAP) Pulse Ox O2 Delivery O2 Flow Rate FiO2 03/11/17 08:00 98.4 49 22 130/61 98 Room Air 03/11/17 04:00 97.9 47 18 134/63 100 Room Air 03/11/17 00:00 97.3 50 19 139/66 98 Room Air 03/10/17 20:00 97.5 62 19 102/55 94 Room Air 03/10/17 16:00 97.7 56 19 115/66 98 Room Air Laboratory Tests Test 03/11/17 07:40 03/11/17 10:00 White Blood Count 5.8 K/UL (4.8-10.8) Red Blood Count 4.03 M/UL (4.20-5.40) L Hemoglobin 13.0 G/DL (12.0-16.0) Hematocrit 38.0 % (37.0-47.0) Mean Corpuscular Volume 94 FL (80-99) Mean Corpuscular Hemoglobin 32.3 PG (27.0-31.0) H Mean Corpuscular Hemoglobin Concent 34.2 G/DL (32.0-36.0) Red Cell Distribution Width 12.4 % (11.6-14.8) Platelet Count 291 K/UL (150-450) Mean Platelet Volume 5.5 FL (6.5-10.1) L Neutrophils (%) (Auto) 53.7 % (45.0-75.0) Lymphocytes (%) (Auto) 34.9 % (20.0-45.0) Monocytes (%) (Auto) 7.9 % (1.0-10.0) Eosinophils (%) (Auto) 2.7 % (0.0-3.0) Basophils (%) (Auto) 0.9 % (0.0-2.0) Prothrombin Time 10.7 SEC (9.30-11.50) Prothromb Time International Ratio 1.0 (0.9-1.1) Sodium Level 141 MMOL/L (136-145) Potassium Level 3.5 MMOL/L (3.5-5.1) Chloride Level 108 MMOL/L (98-107) H Carbon Dioxide Level 23 MMOL/L (21-32) Anion Gap 10 mmol/L (5-15) Blood Urea Nitrogen 10 mg/dL (7-18) Creatinine 0.7 MG/DL (0.55-1.30) Estimat Glomerular Filtration Rate mL/min (>60) Glucose Level 95 MG/DL (74-106) Calcium Level 8.8 MG/DL (8.5-10.1) Vancomycin Level Trough 16.1 ug/mL (5.0-12.0) H JOSEPHINE STRONG Mar 11, 2017 14:25
--- NOTE | 2017-03-11 15:19 | General Progress Note ---
Assessment/Plan Problem List: (1) Sepsis ICD Codes: A41.9 - Sepsis SNOMED: 00474340 (2) Pneumonia ICD Codes: J18.9 - Pneumonia, unspecified organism SNOMED: 129337481 Qualifiers: Status: progressing Assessment/Plan peg cancelled due to bradycardia so consulted dr rodriguez for bradycardia peg decsion per gi sepsis and pna improving Subjective ROS Limited/Unobtainable: Yes Allergies: Coded Allergies: PENICILLINS (Verified Allergy, Unknown, 07/30/08) Objective Last 24 Hour Vital Signs Date Time Temp Pulse Resp B/P (MAP) Pulse Ox O2 Delivery O2 Flow Rate FiO2 03/11/17 08:00 98.4 49 22 130/61 98 Room Air 03/11/17 04:00 97.9 47 18 134/63 100 Room Air 03/11/17 00:00 97.3 50 19 139/66 98 Room Air 03/10/17 20:00 97.5 62 19 102/55 94 Room Air 03/10/17 16:00 97.7 56 19 115/66 98 Room Air Laboratory Tests 03/11/17 07:40: White Blood Count 5.8, Red Blood Count 4.03L, Hemoglobin 13.0, Hematocrit 38.0, Mean Corpuscular Volume 94, Mean Corpuscular Hemoglobin 32.3H, Mean Corpuscular Hemoglobin Concent 34.2, Red Cell Distribution Width 12.4, Platelet Count 291, Mean Platelet Volume 5.5L, Neutrophils (%) (Auto) 53.7, Lymphocytes (%) (Auto) 34.9, Monocytes (%) (Auto) 7.9, Eosinophils (%) (Auto) 2.7, Basophils (%) (Auto ) 0.9, Prothrombin Time 10.7, Prothromb Time International Ratio 1.0, Sodium Level 141, Potassium Level 3.5, Chloride Level 108H, Carbon Dioxide Level 23, Anion Gap 10, Blood Urea Nitrogen 10, Creatinine 0.7, Estimat Glomerular Filtration Rate , Glucose Level 95, Calcium Level 8.8, Troponin I 0.000 03/11/17 10:00: Vancomycin Level Trough 16.1H Height (Feet): 5 Height (Inches): 3.00 Weight (Pounds): 115 Respiratory/Chest: lungs clear Abdomen: soft Summer Gaines MD Mar 11, 2017 15:19
--- NOTE | 2017-03-11 15:19 | General Progress Note ---
Assessment/Plan Problem List: (1) Sepsis ICD Codes: A41.9 - Sepsis SNOMED: 80408106 (2) Pneumonia ICD Codes: J18.9 - Pneumonia, unspecified organism SNOMED: 452231338 Qualifiers: Status: progressing Assessment/Plan peg cancelled due to bradycardia so consulted dr rodriguez for bradycardia peg decsion per gi sepsis and pna improving Subjective ROS Limited/Unobtainable: Yes Allergies: Coded Allergies: PENICILLINS (Verified Allergy, Unknown, 07/30/08) Objective Last 24 Hour Vital Signs Date Time Temp Pulse Resp B/P (MAP) Pulse Ox O2 Delivery O2 Flow Rate FiO2 03/11/17 08:00 98.4 49 22 130/61 98 Room Air 03/11/17 04:00 97.9 47 18 134/63 100 Room Air 03/11/17 00:00 97.3 50 19 139/66 98 Room Air 03/10/17 20:00 97.5 62 19 102/55 94 Room Air 03/10/17 16:00 97.7 56 19 115/66 98 Room Air Laboratory Tests 03/11/17 07:40: White Blood Count 5.8, Red Blood Count 4.03L, Hemoglobin 13.0, Hematocrit 38.0, Mean Corpuscular Volume 94, Mean Corpuscular Hemoglobin 32.3H, Mean Corpuscular Hemoglobin Concent 34.2, Red Cell Distribution Width 12.4, Platelet Count 291, Mean Platelet Volume 5.5L, Neutrophils (%) (Auto) 53.7, Lymphocytes (%) (Auto) 34.9, Monocytes (%) (Auto) 7.9, Eosinophils (%) (Auto) 2.7, Basophils (%) (Auto ) 0.9, Prothrombin Time 10.7, Prothromb Time International Ratio 1.0, Sodium Level 141, Potassium Level 3.5, Chloride Level 108H, Carbon Dioxide Level 23, Anion Gap 10, Blood Urea Nitrogen 10, Creatinine 0.7, Estimat Glomerular Filtration Rate , Glucose Level 95, Calcium Level 8.8, Troponin I 0.000 03/11/17 10:00: Vancomycin Level Trough 16.1H Height (Feet): 5 Height (Inches): 3.00 Weight (Pounds): 115 Respiratory/Chest: lungs clear Abdomen: soft Summer Gaines MD Mar 11, 2017 15:19
--- NOTE | 2017-03-11 15:19 | General Progress Note ---
Assessment/Plan Problem List: (1) Sepsis ICD Codes: A41.9 - Sepsis SNOMED: 91260688 (2) Pneumonia ICD Codes: J18.9 - Pneumonia, unspecified organism SNOMED: 984576676 Qualifiers: Status: progressing Assessment/Plan peg cancelled due to bradycardia so consulted dr rodriguez for bradycardia peg decsion per gi sepsis and pna improving Subjective ROS Limited/Unobtainable: Yes Allergies: Coded Allergies: PENICILLINS (Verified Allergy, Unknown, 07/30/08) Objective Last 24 Hour Vital Signs Date Time Temp Pulse Resp B/P (MAP) Pulse Ox O2 Delivery O2 Flow Rate FiO2 03/11/17 08:00 98.4 49 22 130/61 98 Room Air 03/11/17 04:00 97.9 47 18 134/63 100 Room Air 03/11/17 00:00 97.3 50 19 139/66 98 Room Air 03/10/17 20:00 97.5 62 19 102/55 94 Room Air 03/10/17 16:00 97.7 56 19 115/66 98 Room Air Laboratory Tests 03/11/17 07:40: White Blood Count 5.8, Red Blood Count 4.03L, Hemoglobin 13.0, Hematocrit 38.0, Mean Corpuscular Volume 94, Mean Corpuscular Hemoglobin 32.3H, Mean Corpuscular Hemoglobin Concent 34.2, Red Cell Distribution Width 12.4, Platelet Count 291, Mean Platelet Volume 5.5L, Neutrophils (%) (Auto) 53.7, Lymphocytes (%) (Auto) 34.9, Monocytes (%) (Auto) 7.9, Eosinophils (%) (Auto) 2.7, Basophils (%) (Auto ) 0.9, Prothrombin Time 10.7, Prothromb Time International Ratio 1.0, Sodium Level 141, Potassium Level 3.5, Chloride Level 108H, Carbon Dioxide Level 23, Anion Gap 10, Blood Urea Nitrogen 10, Creatinine 0.7, Estimat Glomerular Filtration Rate , Glucose Level 95, Calcium Level 8.8, Troponin I 0.000 03/11/17 10:00: Vancomycin Level Trough 16.1H Height (Feet): 5 Height (Inches): 3.00 Weight (Pounds): 115 Respiratory/Chest: lungs clear Abdomen: soft Summer Gaines MD Mar 11, 2017 15:19
[2017-03-11 15:32] VITALS: BP 140/64
--- NOTE | 2017-03-11 16:45 | Consultation ---
DATE OF CONSULTATION: 03/11/2017 CARDIOLOGY CONSULTATION REFERRING PHYSICIAN: Summer Gaines M.D. REASON FOR CONSULTATION: Bradycardia. HISTORY OF PRESENT ILLNESS: The patient is a 76-year-old lady with history of hypertension, coronary artery disease, history of psychosis as well as left gzlqg-lhr-purm amputation who was brought to the emergency room of [facility] for altered mental status. Possible pneumonia. The patient's saturation was 95% on room air and temperature 98.2 degrees. Chest x-ray showed right-sided infiltration. The patient was also subsequently was evaluated by Dr. Martinez and was scheduled for gastrostomy tube placement. The patient however was profoundly bradycardic and heart rate dropping to 40s and the procedure was canceled. At the time of my evaluation, the patient is comfortable, reports formerly nonverbal. PAST MEDICAL HISTORY: 1. Hypertension. 2. Coronary artery disease. 3. Psychiatric disorder. SOCIAL HISTORY: She lives in [facility]. Does not smoke or drink alcohol. FAMILY HISTORY: Noncontributory. REVIEW OF SYSTEMS: Cannot be obtained. PHYSICAL EXAMINATION: VITAL SIGNS: Blood pressure 130/61, pulse is 49, respirations 18, and temperature 98.4 degrees. HEAD AND NECK: No JVD. LUNGS: Coarse rhonchi. CARDIOVASCULAR: Bradycardic S1 and S2 with no gallop or murmur. ABDOMEN: Soft. EXTREMITIES: Status post left below-knee amputation. LABORATORY AND DIAGNOSTIC DATA: White count 5.8, hemoglobin 13, hematocrit 38, and platelet count is 291. Sodium 141, potassium 3.5, BUN 10. INR is 1. ASSESSMENT AND PLAN: 1. Bradycardia. EKG shows sinus rhythm and is a normal electrocardiogram. Telemetry shows bradycardia heart rate in the 40s. I will check a thyroid function test and completely rule out myocardial infarction protocol. We will get a stat echocardiogram for further evaluation. Please do not keep the patient off any sinus node or AV kierra blocking agent. 2. Hypertension. Continue Norvasc 10 mg daily and enalapril 2.5 mg daily. The patient also on Lasix 20 mg daily. 3. Sepsis, on IV antibiotics with vancomycin and cefepime per Dr. Salazar. 4. Dysphagia, status post percutaneous endoscopic gastrostomy placement pending the patient heart rate improves. Thank you very much, Dr. Gaines, for allowing me to participate in the care of this patient. Please do not hesitate to contact me for any questions regarding my evaluation. Ernesto Matthews M.D. DR: [place] JOB#: [id number] CC:
--- NOTE | 2017-03-11 16:45 | Consultation ---
DATE OF CONSULTATION: 03/11/2017 CARDIOLOGY CONSULTATION REFERRING PHYSICIAN: Summer Gaines M.D. REASON FOR CONSULTATION: Bradycardia. HISTORY OF PRESENT ILLNESS: The patient is a 76-year-old lady with history of hypertension, coronary artery disease, history of psychosis as well as left bizqp-ayj-mszw amputation who was brought to the emergency room of [facility] for altered mental status. Possible pneumonia. The patient's saturation was 95% on room air and temperature 98.2 degrees. Chest x-ray showed right-sided infiltration. The patient was also subsequently was evaluated by Dr. Martinez and was scheduled for gastrostomy tube placement. The patient however was profoundly bradycardic and heart rate dropping to 40s and the procedure was canceled. At the time of my evaluation, the patient is comfortable, reports formerly nonverbal. PAST MEDICAL HISTORY: 1. Hypertension. 2. Coronary artery disease. 3. Psychiatric disorder. SOCIAL HISTORY: She lives in senior living. Does not smoke or drink alcohol. FAMILY HISTORY: Noncontributory. REVIEW OF SYSTEMS: Cannot be obtained. PHYSICAL EXAMINATION: VITAL SIGNS: Blood pressure 130/61, pulse is 49, respirations 18, and temperature 98.4 degrees. HEAD AND NECK: No JVD. LUNGS: Coarse rhonchi. CARDIOVASCULAR: Bradycardic S1 and S2 with no gallop or murmur. ABDOMEN: Soft. EXTREMITIES: Status post left below-knee amputation. LABORATORY AND DIAGNOSTIC DATA: White count 5.8, hemoglobin 13, hematocrit 38, and platelet count is 291. Sodium 141, potassium 3.5, BUN 10. INR is 1. ASSESSMENT AND PLAN: 1. Bradycardia. EKG shows sinus rhythm and is a normal electrocardiogram. Telemetry shows bradycardia heart rate in the 40s. I will check a thyroid function test and completely rule out myocardial infarction protocol. We will get a stat echocardiogram for further evaluation. Please do not keep the patient off any sinus node or AV kierra blocking agent. 2. Hypertension. Continue Norvasc 10 mg daily and enalapril 2.5 mg daily. The patient also on Lasix 20 mg daily. 3. Sepsis, on IV antibiotics with vancomycin and cefepime per Dr. Salazar. 4. Dysphagia, status post percutaneous endoscopic gastrostomy placement pending the patient heart rate improves. Thank you very much, Dr. Gaines, for allowing me to participate in the care of this patient. Please do not hesitate to contact me for any questions regarding my evaluation. Ernesto Matthews M.D. DR: [place] JOB#: [id number] CC:
--- NOTE | 2017-03-11 16:45 | Consultation ---
DATE OF CONSULTATION: 03/11/2017 CARDIOLOGY CONSULTATION REFERRING PHYSICIAN: Summer Gaines M.D. REASON FOR CONSULTATION: Bradycardia. HISTORY OF PRESENT ILLNESS: The patient is a 76-year-old lady with history of hypertension, coronary artery disease, history of psychosis as well as left lwftp-asl-fevz amputation who was brought to the emergency room of [facility] for altered mental status. Possible pneumonia. The patient's saturation was 95% on room air and temperature 98.2 degrees. Chest x-ray showed right-sided infiltration. The patient was also subsequently was evaluated by Dr. Martinez and was scheduled for gastrostomy tube placement. The patient however was profoundly bradycardic and heart rate dropping to 40s and the procedure was canceled. At the time of my evaluation, the patient is comfortable, reports formerly nonverbal. PAST MEDICAL HISTORY: 1. Hypertension. 2. Coronary artery disease. 3. Psychiatric disorder. SOCIAL HISTORY: She lives in group home. Does not smoke or drink alcohol. FAMILY HISTORY: Noncontributory. REVIEW OF SYSTEMS: Cannot be obtained. PHYSICAL EXAMINATION: VITAL SIGNS: Blood pressure 130/61, pulse is 49, respirations 18, and temperature 98.4 degrees. HEAD AND NECK: No JVD. LUNGS: Coarse rhonchi. CARDIOVASCULAR: Bradycardic S1 and S2 with no gallop or murmur. ABDOMEN: Soft. EXTREMITIES: Status post left below-knee amputation. LABORATORY AND DIAGNOSTIC DATA: White count 5.8, hemoglobin 13, hematocrit 38, and platelet count is 291. Sodium 141, potassium 3.5, BUN 10. INR is 1. ASSESSMENT AND PLAN: 1. Bradycardia. EKG shows sinus rhythm and is a normal electrocardiogram. Telemetry shows bradycardia heart rate in the 40s. I will check a thyroid function test and completely rule out myocardial infarction protocol. We will get a stat echocardiogram for further evaluation. Please do not keep the patient off any sinus node or AV kierra blocking agent. 2. Hypertension. Continue Norvasc 10 mg daily and enalapril 2.5 mg daily. The patient also on Lasix 20 mg daily. 3. Sepsis, on IV antibiotics with vancomycin and cefepime per Dr. Salazar. 4. Dysphagia, status post percutaneous endoscopic gastrostomy placement pending the patient heart rate improves. Thank you very much, Dr. Gaines, for allowing me to participate in the care of this patient. Please do not hesitate to contact me for any questions regarding my evaluation. Ernesto Matthews M.D. DR: [place] JOB#: [id number] CC:
--- NOTE | 2017-03-11 18:30 | Consultation ---
DATE OF CONSULTATION: 03/11/2017 NEUROLOGICAL CONSULTATION CONSULTING PHYSICIAN: Gavin Beckett M.D. REQUESTING PHYSICIAN: Summer Gaines M.D. HISTORY OF PRESENT ILLNESS: This 76-year-old female seen in neurological consultation to evaluate increasing verbal unresponsiveness, drowsiness, and obtundation in the last 2 days, although noted some improvement this morning. Stat CT of the brain was obtained. This revealed multiple old lacunar infarcts and chronic age-related changes. There was no evidence of acute infarct. There was no midline shift. Her latest laboratory studies revealed normal CBC, coagulation panel, and chemistry panel was with chloride of 108. Normal troponin. The patient was admitted from nursing facility with increasing changes in her mental status and respiratory difficulties and cough. Her admission vital signs included blood pressure 103/57 and temperature 98.2 degrees. Chest x-ray was obtained revealing bibasilar atelectasis. Repeated chest x-ray, slightly increased left basilar opacity, likely increasing consolidation and/or pleural fluid over the last 4 days. The patient was diagnosed with atelectasis and persistent changes in mental status in the setting of previously diagnosed schizophrenia. PAST MEDICAL HISTORY: The patient has a history of coronary artery disease, hypertension, history of psychiatric disorder, developed subsequently tardive dyskinesia. MEDICATIONS: Current treatment list included aspirin, amlodipine, atorvastatin, Cogentin, Dulcolax, Colace, Vasotec, Lasix, [place] p.r.n., Namenda, Remeron 15 mg at bedtime, Ditropan, Seroquel 12.5 mg q.6 h. p.r.n. for anxiety, temazepam, and currently on vancomycin. ALLERGIES: Penicillin. SOCIAL HISTORY: Resident of a nursing facility. FAMILY HISTORY: Noncontributory. REVIEW OF SYMPTOMS: The patient has limited verbal output, but was able to indicate that she is feeling well. She has no complaints. Denying having headache or dizziness. No chest pain. No palpitations. No respiratory difficulties. Denies abdominal pain or discomfort. No urine or bowel incontinence. The patient added to her past medical history presence of peripheral vascular disease and subsequently had a right below knee amputation. PHYSICAL EXAMINATION: GENERAL: A well-developed, somewhat cachectic-appearing elderly female, lying in a position, asleep, but arousable. VITAL SIGNS: Now are stable. Blood pressure 130/61, heart rate of 49, and temperature 98.4 degrees. HEENT: Head, normocephalic. There is no evidence of trauma. Eyes, ears, and throat are clear. NECK: Supple. No meningeal signs. MUSCULOSKELETAL: Right below knee amputation. Peripheral pulses 1+ and symmetric. MENTAL STATUS: The patient is alert and oriented to her name and age, but not place and time. Unable to provide other medical history. Verbal output was limited. She is able to follow simple commands. CRANIAL NERVE II: Pupils both responding to light and accommodation. Extraocular movements intact. No nystagmus. CRANIAL NERVE V: Normal corneal responses. CRANIAL NERVE VII: No facial asymmetry. CRANIAL NERVE VIII: Normal hearing. CRANIAL NERVES IX THROUGH XII: Tongue is in midline. Symmetric palate elevation. MOTOR EXAMINATION: Motor examination revealed normal muscle tone. Strength 5/5 in all extremities. There is perioral dyskinesia continuously. SENSORY EXAMINATION: Decreased pin sensation in the left foot. Coordination, clumsy wyolyo-dw-[id number] test. Gait not tested. IMPRESSION: 1. This is a 76-year-old female with extensive ischemic cerebrovascular disease, multiple old lacunar strokes, now presenting with a transient verbal unresponsiveness, most likely related to underlying infection. 2. Chronic psychiatric disorder. 3. Tardive dyskinesia. 4. Peripheral vascular disease, status post right below knee amputation. 5. History of hypertension. 6. Coronary artery disease. DISCUSSION: The patient will be off unessential medications. Continue with the IV fluids and antibiotics as per attending. Avoid sedatives. Continue with antipsychotic treatment as per Psychiatry, but consider presence of tardive dyskinesia. Continue with aspirin and statins. Thank you for allowing me to see this interesting patient in neurological consultation. Gavin Beckett M.D. DR: Jareth JOB#: [id number] CC:
[2017-03-11 20:00] VITALS: BP 118/74
--- NOTE | 2017-03-11 22:01 | General Progress Note ---
Assessment/Plan Status: stable, progressing Assessment/Plan agitation schizophrenia seroquel 12.5mg q 6hr remeron Subjective Neurologic/Psychiatric: Reports: anxiety, depressed, emotional problems Allergies: Coded Allergies: PENICILLINS (Verified Allergy, Unknown, 07/30/08) Objective Last 24 Hour Vital Signs Date Time Temp Pulse Resp B/P (MAP) Pulse Ox O2 Delivery O2 Flow Rate FiO2 03/11/17 20:00 97.0 52 18 118/74 100 Room Air 03/11/17 16:00 54 03/11/17 15:32 97.3 47 20 140/64 100 Nasal Cannula 2.0 03/11/17 14:00 47 03/11/17 08:00 98.4 49 22 130/61 98 Room Air 03/11/17 04:00 97.9 47 18 134/63 100 Room Air 03/11/17 00:00 97.3 50 19 139/66 98 Room Air Intake and Output 03/11/17 03/12/17 19:00 07:00 # Voids 1 Laboratory Tests 03/11/17 07:40: White Blood Count 5.8, Red Blood Count 4.03L, Hemoglobin 13.0, Hematocrit 38.0, Mean Corpuscular Volume 94, Mean Corpuscular Hemoglobin 32.3H, Mean Corpuscular Hemoglobin Concent 34.2, Red Cell Distribution Width 12.4, Platelet Count 291, Mean Platelet Volume 5.5L, Neutrophils (%) (Auto) 53.7, Lymphocytes (%) (Auto) 34.9, Monocytes (%) (Auto) 7.9, Eosinophils (%) (Auto) 2.7, Basophils (%) (Auto ) 0.9, Prothrombin Time 10.7, Prothromb Time International Ratio 1.0, Sodium Level 141, Potassium Level 3.5, Chloride Level 108H, Carbon Dioxide Level 23, Anion Gap 10, Blood Urea Nitrogen 10, Creatinine 0.7, Estimat Glomerular Filtration Rate , Glucose Level 95, Calcium Level 8.8, Troponin I 0.000 03/11/17 10:00: Vancomycin Level Trough 16.1H 03/11/17 19:20: Troponin I 0.000 Height (Feet): 5 Height (Inches): 3.00 Weight (Pounds): 115 General Appearance: no apparent distress, alert, confused, thin Neurologic: alert, responsive, disoriented, depressed affect Manny Lester M.D. Mar 11, 2017 22:01
--- NOTE | 2017-03-11 22:52 | Infectious Diseases Prog Note ---
Assessment/Plan Problems: (1) Pneumonia Assessment & Plan: rule out aspiration, screening for influenza is negative , continue vancomycin with cefepime empirically , monitor CXR (2) Sepsis Assessment & Plan: continue vancomycin with cefepime empirically pending blood culture (3) Altered awareness, transient Assessment & Plan: suspect due to sepsis, recommend brain image and neuro consult (4) At risk for aspiration Assessment & Plan: recommend tube feeding, continue ivf (5) At risk for dehydration due to poor fluid intake Assessment & Plan: tube feeding was canceled due to bradycardia, continue iv hydration and tele monitor cardiology is following Subjective ROS Limited/Unobtainable: Yes Allergies: Coded Allergies: PENICILLINS (Verified Allergy, Unknown, 07/30/08) Subjective she was sent back to [facility] for bradycardia, and tube feeding was canceled , looks comfortable, nonverbal, dosent follow commands Objective Vital Signs Last 24 Hour Vital Signs Date Time Temp Pulse Resp B/P (MAP) Pulse Ox O2 Delivery O2 Flow Rate FiO2 03/11/17 20:00 97.0 52 18 118/74 100 Room Air 03/11/17 16:00 54 03/11/17 15:32 97.3 47 20 140/64 100 Nasal Cannula 2.0 03/11/17 14:00 47 03/11/17 08:00 98.4 49 22 130/61 98 Room Air 03/11/17 04:00 97.9 47 18 134/63 100 Room Air 03/11/17 00:00 97.3 50 19 139/66 98 Room Air Height (Feet): 5 Height (Inches): 3.00 Weight (Pounds): 115 General Appearance: WD/WN, no acute distress HEENT: normocephalic, atraumatic, anicteric, mucous membranes moist, PERRL Respiratory/Chest: chest wall non-tender, lungs clear, normal breath sounds, no respiratory distress, no accessory muscle use, decreased breath sounds Cardiovascular: normal peripheral pulses, regular rhythm, no gallop/murmur, no JVD, bradycardia Abdomen: normal bowel sounds, soft, non tender, no organomegaly, non distended , no mass, no scars Extremities: no cyanosis, no clubbing Skin: no rash, no lesions, no ulcers Neurologic/Psychiatric: alert Lymphatic: no neck adenopathy, no groin adenopathy Laboratory Tests Test 03/11/17 07:40 03/11/17 10:00 03/11/17 19:20 White Blood Count 5.8 K/UL (4.8-10.8) Red Blood Count 4.03 M/UL (4.20-5.40) L Hemoglobin 13.0 G/DL (12.0-16.0) Hematocrit 38.0 % (37.0-47.0) Mean Corpuscular Volume 94 FL (80-99) Mean Corpuscular Hemoglobin 32.3 PG (27.0-31.0) H Mean Corpuscular Hemoglobin Concent 34.2 G/DL (32.0-36.0) Red Cell Distribution Width 12.4 % (11.6-14.8) Platelet Count 291 K/UL (150-450) Mean Platelet Volume 5.5 FL (6.5-10.1) L Neutrophils (%) (Auto) 53.7 % (45.0-75.0) Lymphocytes (%) (Auto) 34.9 % (20.0-45.0) Monocytes (%) (Auto) 7.9 % (1.0-10.0) Eosinophils (%) (Auto) 2.7 % (0.0-3.0) Basophils (%) (Auto) 0.9 % (0.0-2.0) Prothrombin Time 10.7 SEC (9.30-11.50) Prothromb Time International Ratio 1.0 (0.9-1.1) Sodium Level 141 MMOL/L (136-145) Potassium Level 3.5 MMOL/L (3.5-5.1) Chloride Level 108 MMOL/L (98-107) H Carbon Dioxide Level 23 MMOL/L (21-32) Anion Gap 10 mmol/L (5-15) Blood Urea Nitrogen 10 mg/dL (7-18) Creatinine 0.7 MG/DL (0.55-1.30) Estimat Glomerular Filtration Rate mL/min (>60) Glucose Level 95 MG/DL (74-106) Calcium Level 8.8 MG/DL (8.5-10.1) Troponin I 0.000 ng/mL (0.000-0.056) 0.000 ng/mL (0.000-0.056) Vancomycin Level Trough 16.1 ug/mL (5.0-12.0) H Current Medications Medications (Trade) Dose Ordered Sig/Kvng Route PRN Reason Start Time Stop Time Status Last Admin Dose Admin Acetaminophen/ Hydrocodone Bitart ([place] 5/325) 1 tab Q4H PRN ORAL For Pain 03/08/17 03:15 03/15/17 03:14 Amlodipine Besylate (Norvasc) 10 mg DAILY ORAL 03/08/17 09:00 04/07/17 08:59 03/08/17 09:15 Aspirin (Ecotrin) 81 mg DAILY ORAL 03/08/17 09:00 04/07/17 08:59 03/08/17 09:14 Atorvastatin Calcium (Lipitor) 5 mg BEDTIME ORAL 03/08/17 21:00 04/07/17 20:59 03/11/17 21:05 Bisacodyl (Dulcolax) 10 mg DAILY ORAL 03/08/17 09:00 04/07/17 08:59 03/08/17 09:15 Cefepime HCl 2 gm/ Sodium Chloride 110 ml @ 220 mls/hr EVERY 12 HOURS IVPB 03/07/17 21:00 03/14/17 20:59 03/11/17 21:37 Dextrose/Sodium Chloride 1,000 ml @ 50 mls/hr Q20H IV 03/09/17 13:00 04/08/17 12:59 03/11/17 05:49 Docusate Sodium (Colace) 100 mg TWICE A DAY ORAL 03/08/17 09:00 04/07/17 08:59 03/08/17 09:15 Enalapril Maleate (Vasotec) 2.5 mg DAILY ORAL 03/08/17 09:00 04/07/17 08:59 03/08/17 09:15 Furosemide (Lasix) 20 mg DAILY ORAL 03/08/17 09:00 04/07/17 08:59 03/08/17 09:15 Heparin Sodium (Porcine) (Heparin 5000 units/ml) 5,000 units EVERY 12 HOURS SUBQ 03/08/17 09:00 04/07/17 08:59 03/11/17 21:06 Mirtazapine (Remeron) 15 mg BEDTIME ORAL 03/08/17 21:00 04/07/17 20:59 03/11/17 21:05 Oxybutynin Chloride (Ditropan) 5 mg BID ORAL 03/08/17 18:00 04/07/17 17:59 Potassium Chloride (K-Dur) 20 meq DAILY ORAL 03/09/17 09:00 04/08/17 08:59 Quetiapine Fumarate (SEROquel) 12.5 mg EVERY 6 HOURS PRN ORAL For Anxiety 03/08/17 22:15 04/07/17 22:14 Temazepam (Restoril) 15 mg BEDTIME PRN ORAL Insomnia 03/08/17 03:15 03/15/17 03:14 Vancomycin HCl (Vanco rx to dose) 1 ea DAILY PRN MISC Per rx protocol 03/07/17 19:15 04/06/17 19:14 Vancomycin/Sodium Chloride 250 ml @ 166.667 mls/hr Q12HR@1100,2300 IVPB 03/09/17 23:00 03/14/17 22:59 03/11/17 12:10 Ayanna Salazar M.D. Mar 11, 2017 22:52
[2017-03-12] VITALS: BP 122/69
[2017-03-12] MEDS: D5NS 1,000 ML IV SCH ×2 (01:00→21:51)
[2017-03-12 03:48] LABS: EOSINOPHILS % (AUTO) 2.6 % (0.0-3.0); HEMATOCRIT 39.6 % (37.0-47.0); HEMOGLOBIN 13.4 G/DL (12.0-16.0); LYMPHOCYTES % (AUTO) 29.7 % (20.0-45.0); MEAN CORPUSCULAR VOLUME 94 FL (80-99); MONOCYTES % (AUTO) 7.4 % (1.0-10.0); NEUTROPHILS % (AUTO) 59.3 % (45.0-75.0); PLATELET COUNT 293 K/UL (150-450); RED BLOOD COUNT 4.21 M/UL (4.20-5.40); RED CELL DISTRIBUTION WIDTH 12.5 % (11.6-14.8); WHITE BLOOD COUNT 7.5 K/UL (4.8-10.8)
[2017-03-12 03:54] LABS: ANION GAP 9 mmol/L (5-15); BLOOD UREA NITROGEN 7 mg/dL (7-18); CALCIUM 9.1 MG/DL (8.5-10.1); CARBON DIOXIDE 24 MMOL/L (21-32); CHLORIDE 109 MMOL/L (98-107); CREATININE 0.8 MG/DL (0.55-1.30); POTASSIUM 3.6 MMOL/L (3.5-5.1); SODIUM 142 MMOL/L (136-145)
[2017-03-12 04:00] VITALS: BP 119/69
[2017-03-12 08:00] VITALS: BP 139/74
[2017-03-12] MEDS: Enalapril 2.5mg tab ORAL SCH ×2 (09:00→09:58)
[2017-03-12] MEDS: Bisacodyl EC 5mg tab ORAL SCH ×2 (09:00→09:53)
[2017-03-12] MEDS: Heparin 5000 units/ml inj SUBQ SCH ×3 (09:00→20:26)
[2017-03-12] MEDS: Aspirin EC 81mg tab ORAL SCH ×2 (09:00→09:53)
[2017-03-12] MEDS: Docusate 100mg cap ORAL SCH ×3 (09:00→17:23)
[2017-03-12] MEDS: Oxybutynin 5mg tab ORAL SCH ×3 (09:00→17:23)
--- NOTE | 2017-03-12 10:35 | Cardiac Electrophysiology PN ---
Assessment/Plan Assessment/Plan 1. Bradycardia. EKG shows sinus rhythm and is a normal electrocardiogram. Telemetry shows bradycardia heart rate still in the 40s. Ruled out myocardial infarction protocol. Echocardiogram showed Nl EF 60%. Keep the patient off any sinus node or AV kierra blocking agent. 2. Hypertension. Continue Norvasc 10 mg daily and enalapril 2.5 mg daily. On Lasix 20 mg daily. 3. Sepsis, on IV antibiotics with vancomycin and cefepime per Dr. Salazar. 4. Dysphagia, Percutaneous endoscopic gastrostomy placement pending the patient heart rate improves. 5. S/P Right BKA DW RN Subjective Subjective Still mayela down to 43. No chest pain or SOB. RN at bedside. Objective Last 24 Hour Vital Signs Date Time Temp Pulse Resp B/P (MAP) Pulse Ox O2 Delivery O2 Flow Rate FiO2 03/12/17 08:00 98.0 48 21 139/74 97 Room Air 03/12/17 04:00 98.2 48 18 119/69 95 Room Air 03/12/17 04:00 49 03/12/17 00:00 97.7 49 18 122/69 95 Room Air 03/12/17 00:00 49 03/11/17 20:00 97.0 52 18 118/74 100 Room Air 03/11/17 20:00 52 03/11/17 16:00 54 03/11/17 15:32 97.3 47 20 140/64 100 Nasal Cannula 2.0 03/11/17 14:00 47 Laboratory Tests Test 03/11/17 19:20 03/12/17 02:50 Troponin I 0.000 ng/mL (0.000-0.056) 0.005 ng/mL (0.000-0.056) White Blood Count 7.5 K/UL (4.8-10.8) Red Blood Count 4.21 M/UL (4.20-5.40) Hemoglobin 13.4 G/DL (12.0-16.0) Hematocrit 39.6 % (37.0-47.0) Mean Corpuscular Volume 94 FL (80-99) Mean Corpuscular Hemoglobin 31.8 PG (27.0-31.0) H Mean Corpuscular Hemoglobin Concent 33.8 G/DL (32.0-36.0) Red Cell Distribution Width 12.5 % (11.6-14.8) Platelet Count 293 K/UL (150-450) Mean Platelet Volume 5.4 FL (6.5-10.1) L Neutrophils (%) (Auto) 59.3 % (45.0-75.0) Lymphocytes (%) (Auto) 29.7 % (20.0-45.0) Monocytes (%) (Auto) 7.4 % (1.0-10.0) Eosinophils (%) (Auto) 2.6 % (0.0-3.0) Basophils (%) (Auto) 1.0 % (0.0-2.0) Sodium Level 142 MMOL/L (136-145) Potassium Level 3.6 MMOL/L (3.5-5.1) Chloride Level 109 MMOL/L (98-107) H Carbon Dioxide Level 24 MMOL/L (21-32) Anion Gap 9 mmol/L (5-15) Blood Urea Nitrogen 7 mg/dL (7-18) Creatinine 0.8 MG/DL (0.55-1.30) Estimat Glomerular Filtration Rate mL/min (>60) Glucose Level 103 MG/DL (74-106) Calcium Level 9.1 MG/DL (8.5-10.1) Thyroid Stimulating Hormone (TSH) 0.884 uiU/mL (0.360-3.740) Free Thyroxine 1.34 NG/DL (0.10-1.46) Objective HEAD AND NECK: No JVD. LUNGS: Coarse rhonchi. CARDIOVASCULAR: Bradycardic S1 and S2 with no gallop or murmur. ABDOMEN: Soft. EXTREMITIES: Status post Right below-knee amputation. JOSEPHINE STRONG Mar 12, 2017 10:34
[2017-03-12] MEDS: Cefepime HCl 2 GM in NS 110 ML IVPB SCH ×2 (11:06→20:26)
--- NOTE | 2017-03-12 11:48 | Pulmonology Progress Note ---
Assessment/Plan Assessment/Plan 1. Atelectasis, possible pneumonia. 2. Altered mental status, etiology unclear, resolved. 3. Psychosis. 4. Tardive dyskinesia. 5. Coronary heart disease. 6. Hypertension. 7. Sinus bradycardia PLAN: abx per ID aspiration precautions o2 prn wound care EGD/PEG Subjective ROS Limited/Unobtainable: Yes Allergies: Coded Allergies: PENICILLINS (Verified Allergy, Unknown, 07/30/08) Objective Last 24 Hour Vital Signs Date Time Temp Pulse Resp B/P (MAP) Pulse Ox O2 Delivery O2 Flow Rate FiO2 03/12/17 08:00 98.0 48 21 139/74 97 Room Air 03/12/17 04:00 98.2 48 18 119/69 95 Room Air 03/12/17 04:00 49 03/12/17 00:00 97.7 49 18 122/69 95 Room Air 03/12/17 00:00 49 03/11/17 20:00 97.0 52 18 118/74 100 Room Air 03/11/17 20:00 52 03/11/17 16:00 54 03/11/17 15:32 97.3 47 20 140/64 100 Nasal Cannula 2.0 03/11/17 14:00 47 General Appearance: no acute distress Respiratory/Chest: lungs clear Cardiovascular: regular rhythm, bradycardia Abdomen: soft, non tender Laboratory Tests 03/11/17 19:20: Troponin I 0.000 03/12/17 02:50: Troponin I 0.005, White Blood Count 7.5, Red Blood Count 4.21, Hemoglobin 13.4, Hematocrit 39.6, Mean Corpuscular Volume 94, Mean Corpuscular Hemoglobin 31.8H, Mean Corpuscular Hemoglobin Concent 33.8, Red Cell Distribution Width 12.5, Platelet Count 293, Mean Platelet Volume 5.4L, Neutrophils (%) (Auto) 59.3, Lymphocytes (%) (Auto) 29.7, Monocytes (%) (Auto) 7.4, Eosinophils (%) (Auto) 2.6, Basophils (%) (Auto) 1.0, Sodium Level 142, Potassium Level 3.6, Chloride Level 109H, Carbon Dioxide Level 24, Anion Gap 9, Blood Urea Nitrogen 7, Creatinine 0.8, Estimat Glomerular Filtration Rate , Glucose Level 103, Calcium Level 9.1, Thyroid Stimulating Hormone (TSH) 0.884, Free Thyroxine 1.34 Current Medications Medications (Trade) Dose Ordered Sig/Kvng Route PRN Reason Start Time Stop Time Status Last Admin Dose Admin Acetaminophen/ Hydrocodone Bitart ([place] 5/325) 1 tab Q4H PRN ORAL For Pain 03/08/17 03:15 03/15/17 03:14 Amlodipine Besylate (Norvasc) 10 mg DAILY ORAL 03/08/17 09:00 04/07/17 08:59 03/08/17 09:15 Aspirin (Ecotrin) 81 mg DAILY ORAL 03/08/17 09:00 04/07/17 08:59 03/08/17 09:14 Atorvastatin Calcium (Lipitor) 5 mg BEDTIME ORAL 03/08/17 21:00 04/07/17 20:59 03/11/17 21:05 Bisacodyl (Dulcolax) 10 mg DAILY ORAL 03/08/17 09:00 04/07/17 08:59 03/08/17 09:15 Cefepime HCl 2 gm/ Sodium Chloride 110 ml @ 220 mls/hr EVERY 12 HOURS IVPB 03/07/17 21:00 03/14/17 20:59 03/12/17 11:06 Dextrose/Sodium Chloride 1,000 ml @ 50 mls/hr Q20H IV 03/09/17 13:00 04/08/17 12:59 03/11/17 05:49 Docusate Sodium (Colace) 100 mg TWICE A DAY ORAL 03/08/17 09:00 04/07/17 08:59 03/08/17 09:15 Enalapril Maleate (Vasotec) 2.5 mg DAILY ORAL 03/08/17 09:00 04/07/17 08:59 03/08/17 09:15 Furosemide (Lasix) 20 mg DAILY ORAL 03/08/17 09:00 04/07/17 08:59 03/08/17 09:15 Heparin Sodium (Porcine) (Heparin 5000 units/ml) 5,000 units EVERY 12 HOURS SUBQ 03/08/17 09:00 04/07/17 08:59 03/11/17 21:06 Mirtazapine (Remeron) 15 mg BEDTIME ORAL 03/08/17 21:00 04/07/17 20:59 03/11/17 21:05 Oxybutynin Chloride (Ditropan) 5 mg BID ORAL 03/08/17 18:00 04/07/17 17:59 Potassium Chloride (K-Dur) 20 meq DAILY ORAL 03/09/17 09:00 04/08/17 08:59 Quetiapine Fumarate (SEROquel) 12.5 mg EVERY 6 HOURS PRN ORAL For Anxiety 03/08/17 22:15 04/07/17 22:14 Temazepam (Restoril) 15 mg BEDTIME PRN ORAL Insomnia 03/08/17 03:15 03/15/17 03:14 Vancomycin HCl (Vanco rx to dose) 1 ea DAILY PRN MISC Per rx protocol 03/07/17 19:15 04/06/17 19:14 Vancomycin/Sodium Chloride 250 ml @ 166.667 mls/hr Q12HR@1100,2300 IVPB 03/09/17 23:00 03/14/17 22:59 03/11/17 23:21 KENIA DOYLE Mar 12, 2017 11:48
[2017-03-12 12:00] VITALS: BP 139/70
--- NOTE | 2017-03-12 12:27 | Neurology Progress Note ---
Interim History Interim History ROS Limited/Unobtainable: Yes Complaints: none Events: bradycardia Objective Physical Exam Last Vital Signs Date Time Temp Pulse Resp B/P (MAP) Pulse Ox O2 Delivery O2 Flow Rate FiO2 03/12/17 12:00 97.9 55 20 139/70 99 Room Air 03/11/17 15:32 2.0 Laboratory Tests Test 03/11/17 19:20 03/12/17 02:50 Troponin I 0.000 ng/mL (0.000-0.056) 0.005 ng/mL (0.000-0.056) White Blood Count 7.5 K/UL (4.8-10.8) Red Blood Count 4.21 M/UL (4.20-5.40) Hemoglobin 13.4 G/DL (12.0-16.0) Hematocrit 39.6 % (37.0-47.0) Mean Corpuscular Volume 94 FL (80-99) Mean Corpuscular Hemoglobin 31.8 PG (27.0-31.0) H Mean Corpuscular Hemoglobin Concent 33.8 G/DL (32.0-36.0) Red Cell Distribution Width 12.5 % (11.6-14.8) Platelet Count 293 K/UL (150-450) Mean Platelet Volume 5.4 FL (6.5-10.1) L Neutrophils (%) (Auto) 59.3 % (45.0-75.0) Lymphocytes (%) (Auto) 29.7 % (20.0-45.0) Monocytes (%) (Auto) 7.4 % (1.0-10.0) Eosinophils (%) (Auto) 2.6 % (0.0-3.0) Basophils (%) (Auto) 1.0 % (0.0-2.0) Sodium Level 142 MMOL/L (136-145) Potassium Level 3.6 MMOL/L (3.5-5.1) Chloride Level 109 MMOL/L (98-107) H Carbon Dioxide Level 24 MMOL/L (21-32) Anion Gap 9 mmol/L (5-15) Blood Urea Nitrogen 7 mg/dL (7-18) Creatinine 0.8 MG/DL (0.55-1.30) Estimat Glomerular Filtration Rate mL/min (>60) Glucose Level 103 MG/DL (74-106) Calcium Level 9.1 MG/DL (8.5-10.1) Thyroid Stimulating Hormone (TSH) 0.884 uiU/mL (0.360-3.740) Free Thyroxine 1.34 NG/DL (0.10-1.46) General: no acute distress, other - cachectic Head: normocophalic, atraumatic Neck: other Neurologic Exam Mental Status: awake, alert, other - drowsy Speech: other - poor verbal responces Language: other - slurrwd Cranial Nerve II: fundus normal, visual rae Cranial Nerves III, IV, : PERRLA Cranial Nerve V: normal facial sensations Cranial Nerve VII: normal facial expressions Cranial Nerve VIII: no nystagmus Cranial Nerve IX: normal palate elevation Cranial Nerve XI: trapezii function normal Cranial Nerve XII: no tongue atrophy/fasciculations Motor System: no involuntary movement, no muscle wasting, other - flexed all limbs Sensory: normal pinprick Coordination: other Deep Tendon Reflexes: 0 bicep (L), 0 bicep (R), 0 tricep (L), 0 tricep (R), 0 brachioradialis (L), 0 brachioradialis (R), 0 knee (L), 0 knee (R), 0 ankle (L) , 0 ankle (R) Reflexes: mute plantar (L), mute plantar (R) Stance: other Gait: other Impression/Recommendations Status: stable, progressing Recommendations # [id number] ho;d SSRI cont present rx pt/ot IRAIS MUNOZ Mar 12, 2017 12:27
--- NOTE | 2017-03-12 12:30 | Neurology Progress Note ---
Interim History Interim History ROS Limited/Unobtainable: Yes Complaints: none Events: bradycardia Objective Physical Exam Last Vital Signs Date Time Temp Pulse Resp B/P (MAP) Pulse Ox O2 Delivery O2 Flow Rate FiO2 03/12/17 12:00 97.9 55 20 139/70 99 Room Air 03/11/17 15:32 2.0 Laboratory Tests Test 03/11/17 19:20 03/12/17 02:50 Troponin I 0.000 ng/mL (0.000-0.056) 0.005 ng/mL (0.000-0.056) White Blood Count 7.5 K/UL (4.8-10.8) Red Blood Count 4.21 M/UL (4.20-5.40) Hemoglobin 13.4 G/DL (12.0-16.0) Hematocrit 39.6 % (37.0-47.0) Mean Corpuscular Volume 94 FL (80-99) Mean Corpuscular Hemoglobin 31.8 PG (27.0-31.0) H Mean Corpuscular Hemoglobin Concent 33.8 G/DL (32.0-36.0) Red Cell Distribution Width 12.5 % (11.6-14.8) Platelet Count 293 K/UL (150-450) Mean Platelet Volume 5.4 FL (6.5-10.1) L Neutrophils (%) (Auto) 59.3 % (45.0-75.0) Lymphocytes (%) (Auto) 29.7 % (20.0-45.0) Monocytes (%) (Auto) 7.4 % (1.0-10.0) Eosinophils (%) (Auto) 2.6 % (0.0-3.0) Basophils (%) (Auto) 1.0 % (0.0-2.0) Sodium Level 142 MMOL/L (136-145) Potassium Level 3.6 MMOL/L (3.5-5.1) Chloride Level 109 MMOL/L (98-107) H Carbon Dioxide Level 24 MMOL/L (21-32) Anion Gap 9 mmol/L (5-15) Blood Urea Nitrogen 7 mg/dL (7-18) Creatinine 0.8 MG/DL (0.55-1.30) Estimat Glomerular Filtration Rate mL/min (>60) Glucose Level 103 MG/DL (74-106) Calcium Level 9.1 MG/DL (8.5-10.1) Thyroid Stimulating Hormone (TSH) 0.884 uiU/mL (0.360-3.740) Free Thyroxine 1.34 NG/DL (0.10-1.46) General: no acute distress, other - cachectic Head: normocophalic, atraumatic Neck: other Neurologic Exam Mental Status: awake, alert, other - drowsy Speech: other - poor verbal responces Language: other - slurrwd Cranial Nerve II: fundus normal, visual rae Cranial Nerves III, IV, : PERRLA Cranial Nerve V: normal facial sensations Cranial Nerve VII: normal facial expressions, other - dyskinesia Cranial Nerve VIII: no nystagmus Cranial Nerve IX: normal palate elevation Cranial Nerve XI: trapezii function normal Cranial Nerve XII: no tongue atrophy/fasciculations Motor System: no involuntary movement, no muscle wasting, other - flexed all limbs Sensory: normal pinprick Coordination: other Deep Tendon Reflexes: 0 bicep (L), 0 bicep (R), 0 tricep (L), 0 tricep (R), 0 brachioradialis (L), 0 brachioradialis (R), 0 knee (L), 0 knee (R), 0 ankle (L) , 0 ankle (R) Reflexes: mute plantar (L), mute plantar (R) Stance: other Gait: other Impression/Recommendations Problems: (1) s/p multiple lacunar strokes (2) Neuroleptic-induced tardive dyskinesia (3) Bradycardia Status: stable, progressing Recommendations # [id number] ho;d SSRI cont present rx pt/ot IRAIS MUNOZ Mar 12, 2017 12:30
--- NOTE | 2017-03-12 12:30 | GI Progress Note ---
Assessment/Plan Problems: (1) Encounter for PEG (percutaneous endoscopic gastrostomy) ICD Codes: Z43.1 - Encounter for attention to gastrostomy SNOMED: 863557152, 852127646 (2) Altered mental status ICD Codes: R41.82 - Altered mental status, unspecified SNOMED: 632330423 (3) Intractable vomiting (4) At risk for dehydration due to poor fluid intake ICD Codes: Z91.89 - Other specified personal risk factors, not elsewhere classified SNOMED: 20887075, 004982095 (5) Acute abdominal pain Status: unchanged Status Narrative Discussed with Dr. Martinez. Assessment/Plan PEG on hold, not cleared by cardiology for bradycardia resume diet per ST/dietary >> Cardiac PUREE/NECTAR THICK LIQUIDS, CRUSH CRUSHABLE MEDS/PRESENT IN PUREE bowel regime fu labs The patient was seen and examined at bedside and all new and available data was reviewed in the patients chart. I agree with the above findings, impression and plan. (Patient seen earlier today. Signature stamp does not reflect patient encounter time.). - Dante Martinez MD Subjective Subjective limited Objective Last 24 Hour Vital Signs Date Time Temp Pulse Resp B/P (MAP) Pulse Ox O2 Delivery O2 Flow Rate FiO2 03/12/17 12:00 97.9 55 20 139/70 99 Room Air 03/12/17 08:00 98.0 48 21 139/74 97 Room Air 03/12/17 04:00 98.2 48 18 119/69 95 Room Air 03/12/17 04:00 49 03/12/17 00:00 97.7 49 18 122/69 95 Room Air 03/12/17 00:00 49 03/11/17 20:00 97.0 52 18 118/74 100 Room Air 03/11/17 20:00 52 03/11/17 16:00 54 03/11/17 15:32 97.3 47 20 140/64 100 Nasal Cannula 2.0 03/11/17 14:00 47 Laboratory Tests Test 03/11/17 19:20 03/12/17 02:50 Troponin I 0.000 ng/mL (0.000-0.056) 0.005 ng/mL (0.000-0.056) White Blood Count 7.5 K/UL (4.8-10.8) Red Blood Count 4.21 M/UL (4.20-5.40) Hemoglobin 13.4 G/DL (12.0-16.0) Hematocrit 39.6 % (37.0-47.0) Mean Corpuscular Volume 94 FL (80-99) Mean Corpuscular Hemoglobin 31.8 PG (27.0-31.0) H Mean Corpuscular Hemoglobin Concent 33.8 G/DL (32.0-36.0) Red Cell Distribution Width 12.5 % (11.6-14.8) Platelet Count 293 K/UL (150-450) Mean Platelet Volume 5.4 FL (6.5-10.1) L Neutrophils (%) (Auto) 59.3 % (45.0-75.0) Lymphocytes (%) (Auto) 29.7 % (20.0-45.0) Monocytes (%) (Auto) 7.4 % (1.0-10.0) Eosinophils (%) (Auto) 2.6 % (0.0-3.0) Basophils (%) (Auto) 1.0 % (0.0-2.0) Sodium Level 142 MMOL/L (136-145) Potassium Level 3.6 MMOL/L (3.5-5.1) Chloride Level 109 MMOL/L (98-107) H Carbon Dioxide Level 24 MMOL/L (21-32) Anion Gap 9 mmol/L (5-15) Blood Urea Nitrogen 7 mg/dL (7-18) Creatinine 0.8 MG/DL (0.55-1.30) Estimat Glomerular Filtration Rate mL/min (>60) Glucose Level 103 MG/DL (74-106) Calcium Level 9.1 MG/DL (8.5-10.1) Thyroid Stimulating Hormone (TSH) 0.884 uiU/mL (0.360-3.740) Free Thyroxine 1.34 NG/DL (0.10-1.46) Height (Feet): 5 Height (Inches): 3.00 Weight (Pounds): 107 General Appearance: no apparent distress Cardiovascular: bradycardia Respiratory/Chest: normal breath sounds Abdominal Exam: soft Kaylee Mohr N.Quang Mar 12, 2017 12:30 STEVE MARTINEZ Mar 13, 2017 08:36
--- NOTE | 2017-03-12 12:30 | GI Progress Note ---
Assessment/Plan Problems: (1) Encounter for PEG (percutaneous endoscopic gastrostomy) ICD Codes: Z43.1 - Encounter for attention to gastrostomy SNOMED: 902046553, 792524394 (2) Altered mental status ICD Codes: R41.82 - Altered mental status, unspecified SNOMED: 145379118 (3) Intractable vomiting (4) At risk for dehydration due to poor fluid intake ICD Codes: Z91.89 - Other specified personal risk factors, not elsewhere classified SNOMED: 59288681, 750618467 (5) Acute abdominal pain Status: unchanged Status Narrative Discussed with Dr. Martinez. Assessment/Plan PEG on hold, not cleared by cardiology for bradycardia resume diet per ST/dietary >> Cardiac PUREE/NECTAR THICK LIQUIDS, CRUSH CRUSHABLE MEDS/PRESENT IN PUREE bowel regime fu labs The patient was seen and examined at bedside and all new and available data was reviewed in the patients chart. I agree with the above findings, impression and plan. (Patient seen earlier today. Signature stamp does not reflect patient encounter time.). - Dante Martinez MD Subjective Subjective limited Objective Last 24 Hour Vital Signs Date Time Temp Pulse Resp B/P (MAP) Pulse Ox O2 Delivery O2 Flow Rate FiO2 03/12/17 12:00 97.9 55 20 139/70 99 Room Air 03/12/17 08:00 98.0 48 21 139/74 97 Room Air 03/12/17 04:00 98.2 48 18 119/69 95 Room Air 03/12/17 04:00 49 03/12/17 00:00 97.7 49 18 122/69 95 Room Air 03/12/17 00:00 49 03/11/17 20:00 97.0 52 18 118/74 100 Room Air 03/11/17 20:00 52 03/11/17 16:00 54 03/11/17 15:32 97.3 47 20 140/64 100 Nasal Cannula 2.0 03/11/17 14:00 47 Laboratory Tests Test 03/11/17 19:20 03/12/17 02:50 Troponin I 0.000 ng/mL (0.000-0.056) 0.005 ng/mL (0.000-0.056) White Blood Count 7.5 K/UL (4.8-10.8) Red Blood Count 4.21 M/UL (4.20-5.40) Hemoglobin 13.4 G/DL (12.0-16.0) Hematocrit 39.6 % (37.0-47.0) Mean Corpuscular Volume 94 FL (80-99) Mean Corpuscular Hemoglobin 31.8 PG (27.0-31.0) H Mean Corpuscular Hemoglobin Concent 33.8 G/DL (32.0-36.0) Red Cell Distribution Width 12.5 % (11.6-14.8) Platelet Count 293 K/UL (150-450) Mean Platelet Volume 5.4 FL (6.5-10.1) L Neutrophils (%) (Auto) 59.3 % (45.0-75.0) Lymphocytes (%) (Auto) 29.7 % (20.0-45.0) Monocytes (%) (Auto) 7.4 % (1.0-10.0) Eosinophils (%) (Auto) 2.6 % (0.0-3.0) Basophils (%) (Auto) 1.0 % (0.0-2.0) Sodium Level 142 MMOL/L (136-145) Potassium Level 3.6 MMOL/L (3.5-5.1) Chloride Level 109 MMOL/L (98-107) H Carbon Dioxide Level 24 MMOL/L (21-32) Anion Gap 9 mmol/L (5-15) Blood Urea Nitrogen 7 mg/dL (7-18) Creatinine 0.8 MG/DL (0.55-1.30) Estimat Glomerular Filtration Rate mL/min (>60) Glucose Level 103 MG/DL (74-106) Calcium Level 9.1 MG/DL (8.5-10.1) Thyroid Stimulating Hormone (TSH) 0.884 uiU/mL (0.360-3.740) Free Thyroxine 1.34 NG/DL (0.10-1.46) Height (Feet): 5 Height (Inches): 3.00 Weight (Pounds): 107 General Appearance: no apparent distress Cardiovascular: bradycardia Respiratory/Chest: normal breath sounds Abdominal Exam: soft Kaylee Mohr N.Quang Mar 12, 2017 12:30 STEVE MARTINEZ Mar 13, 2017 08:36
--- NOTE | 2017-03-12 12:30 | GI Progress Note ---
Assessment/Plan Problems: (1) Encounter for PEG (percutaneous endoscopic gastrostomy) ICD Codes: Z43.1 - Encounter for attention to gastrostomy SNOMED: 103330533, 648378772 (2) Altered mental status ICD Codes: R41.82 - Altered mental status, unspecified SNOMED: 003021189 (3) Intractable vomiting (4) At risk for dehydration due to poor fluid intake ICD Codes: Z91.89 - Other specified personal risk factors, not elsewhere classified SNOMED: 00344919, 427058175 (5) Acute abdominal pain Status: unchanged Status Narrative Discussed with Dr. Martinez. Assessment/Plan PEG on hold, not cleared by cardiology for bradycardia resume diet per ST/dietary >> Cardiac PUREE/NECTAR THICK LIQUIDS, CRUSH CRUSHABLE MEDS/PRESENT IN PUREE bowel regime fu labs The patient was seen and examined at bedside and all new and available data was reviewed in the patients chart. I agree with the above findings, impression and plan. (Patient seen earlier today. Signature stamp does not reflect patient encounter time.). - Dante Martinez MD Subjective Subjective limited Objective Last 24 Hour Vital Signs Date Time Temp Pulse Resp B/P (MAP) Pulse Ox O2 Delivery O2 Flow Rate FiO2 03/12/17 12:00 97.9 55 20 139/70 99 Room Air 03/12/17 08:00 98.0 48 21 139/74 97 Room Air 03/12/17 04:00 98.2 48 18 119/69 95 Room Air 03/12/17 04:00 49 03/12/17 00:00 97.7 49 18 122/69 95 Room Air 03/12/17 00:00 49 03/11/17 20:00 97.0 52 18 118/74 100 Room Air 03/11/17 20:00 52 03/11/17 16:00 54 03/11/17 15:32 97.3 47 20 140/64 100 Nasal Cannula 2.0 03/11/17 14:00 47 Laboratory Tests Test 03/11/17 19:20 03/12/17 02:50 Troponin I 0.000 ng/mL (0.000-0.056) 0.005 ng/mL (0.000-0.056) White Blood Count 7.5 K/UL (4.8-10.8) Red Blood Count 4.21 M/UL (4.20-5.40) Hemoglobin 13.4 G/DL (12.0-16.0) Hematocrit 39.6 % (37.0-47.0) Mean Corpuscular Volume 94 FL (80-99) Mean Corpuscular Hemoglobin 31.8 PG (27.0-31.0) H Mean Corpuscular Hemoglobin Concent 33.8 G/DL (32.0-36.0) Red Cell Distribution Width 12.5 % (11.6-14.8) Platelet Count 293 K/UL (150-450) Mean Platelet Volume 5.4 FL (6.5-10.1) L Neutrophils (%) (Auto) 59.3 % (45.0-75.0) Lymphocytes (%) (Auto) 29.7 % (20.0-45.0) Monocytes (%) (Auto) 7.4 % (1.0-10.0) Eosinophils (%) (Auto) 2.6 % (0.0-3.0) Basophils (%) (Auto) 1.0 % (0.0-2.0) Sodium Level 142 MMOL/L (136-145) Potassium Level 3.6 MMOL/L (3.5-5.1) Chloride Level 109 MMOL/L (98-107) H Carbon Dioxide Level 24 MMOL/L (21-32) Anion Gap 9 mmol/L (5-15) Blood Urea Nitrogen 7 mg/dL (7-18) Creatinine 0.8 MG/DL (0.55-1.30) Estimat Glomerular Filtration Rate mL/min (>60) Glucose Level 103 MG/DL (74-106) Calcium Level 9.1 MG/DL (8.5-10.1) Thyroid Stimulating Hormone (TSH) 0.884 uiU/mL (0.360-3.740) Free Thyroxine 1.34 NG/DL (0.10-1.46) Height (Feet): 5 Height (Inches): 3.00 Weight (Pounds): 107 General Appearance: no apparent distress Cardiovascular: bradycardia Respiratory/Chest: normal breath sounds Abdominal Exam: soft Kaylee Mohr N.Quang Mar 12, 2017 12:30 STEVE MARTINEZ Mar 13, 2017 08:36
--- NOTE | 2017-03-12 13:27 | General Progress Note ---
Assessment/Plan Status: progressing Assessment/Plan agitation schizophrenia seroquel 12.5mg q 6hr remeron Subjective Neurologic/Psychiatric: Reports: anxiety Allergies: Coded Allergies: PENICILLINS (Verified Allergy, Unknown, 07/30/08) Subjective the pt is calm. bradycardia is not due to seroquel or remeron however could be due to other meds. Objective Last 24 Hour Vital Signs Date Time Temp Pulse Resp B/P (MAP) Pulse Ox O2 Delivery O2 Flow Rate FiO2 03/12/17 12:00 97.9 55 20 139/70 99 Room Air 03/12/17 08:00 98.0 48 21 139/74 97 Room Air 03/12/17 04:00 98.2 48 18 119/69 95 Room Air 03/12/17 04:00 49 03/12/17 00:00 97.7 49 18 122/69 95 Room Air 03/12/17 00:00 49 03/11/17 20:00 97.0 52 18 118/74 100 Room Air 03/11/17 20:00 52 03/11/17 16:00 54 03/11/17 15:32 97.3 47 20 140/64 100 Nasal Cannula 2.0 03/11/17 14:00 47 Laboratory Tests 03/11/17 19:20: Troponin I 0.000 03/12/17 02:50: Troponin I 0.005, White Blood Count 7.5, Red Blood Count 4.21, Hemoglobin 13.4, Hematocrit 39.6, Mean Corpuscular Volume 94, Mean Corpuscular Hemoglobin 31.8H, Mean Corpuscular Hemoglobin Concent 33.8, Red Cell Distribution Width 12.5, Platelet Count 293, Mean Platelet Volume 5.4L, Neutrophils (%) (Auto) 59.3, Lymphocytes (%) (Auto) 29.7, Monocytes (%) (Auto) 7.4, Eosinophils (%) (Auto) 2.6, Basophils (%) (Auto) 1.0, Sodium Level 142, Potassium Level 3.6, Chloride Level 109H, Carbon Dioxide Level 24, Anion Gap 9, Blood Urea Nitrogen 7, Creatinine 0.8, Estimat Glomerular Filtration Rate , Glucose Level 103, Calcium Level 9.1, Thyroid Stimulating Hormone (TSH) 0.884, Free Thyroxine 1.34 Height (Feet): 5 Height (Inches): 3.00 Weight (Pounds): 107 General Appearance: no apparent distress, alert, confused Neurologic: alert, responsive, depressed affect Manny Lester M.D. Mar 12, 2017 13:27
[2017-03-12] MEDS: Vancomycin 750mg/NS 250ml IVPB SCH ×2 (13:42→23:28)
--- NOTE | 2017-03-12 14:46 | Infectious Diseases Prog Note ---
Assessment/Plan Problems: (1) Pneumonia Assessment & Plan: suspect aspiration, repeated CXR showed increase LLL consolidation, screening for influenza is negative , continue vancomycin with cefepime empirically , monitor CXR (2) Sepsis Assessment & Plan: continue vancomycin with cefepime empirically pending blood culture (3) Altered awareness, transient Assessment & Plan: suspect due to sepsis, recommend brain image and neuro consult (4) At risk for aspiration Assessment & Plan: recommend tube feeding, continue ivf (5) At risk for dehydration due to poor fluid intake Assessment & Plan: tube feeding was canceled due to bradycardia, continue iv hydration and tele monitor cardiology is following (6) Bradycardia Assessment & Plan: unclear etiology , cardiology is following Subjective Allergies: Coded Allergies: PENICILLINS (Verified Allergy, Unknown, 07/30/08) Subjective she was sent back to [facility] for bradycardia, and tube feeding was canceled , looks comfortable, nonverbal, dosent follow commands Objective Vital Signs Last 24 Hour Vital Signs Date Time Temp Pulse Resp B/P (MAP) Pulse Ox O2 Delivery O2 Flow Rate FiO2 03/12/17 12:00 97.9 55 20 139/70 99 Room Air 03/12/17 08:00 98.0 48 21 139/74 97 Room Air 03/12/17 04:00 98.2 48 18 119/69 95 Room Air 03/12/17 04:00 49 03/12/17 00:00 97.7 49 18 122/69 95 Room Air 03/12/17 00:00 49 03/11/17 20:00 97.0 52 18 118/74 100 Room Air 03/11/17 20:00 52 03/11/17 16:00 54 03/11/17 15:32 97.3 47 20 140/64 100 Nasal Cannula 2.0 Height (Feet): 5 Height (Inches): 3.00 Weight (Pounds): 107 General Appearance: WD/WN, no acute distress HEENT: normocephalic, atraumatic, anicteric, mucous membranes moist, PERRL Respiratory/Chest: chest wall non-tender, normal breath sounds, no respiratory distress, no accessory muscle use, decreased breath sounds Cardiovascular: normal peripheral pulses, regular rhythm, no gallop/murmur, no JVD, bradycardia Abdomen: normal bowel sounds, soft, non tender, no organomegaly, non distended , no mass, no scars Genitourinary: normal external genitalia Extremities: no cyanosis, no clubbing Skin: no rash, no lesions, no ulcers Neurologic/Psychiatric: alert Laboratory Tests Test 03/11/17 19:20 03/12/17 02:50 Troponin I 0.000 ng/mL (0.000-0.056) 0.005 ng/mL (0.000-0.056) White Blood Count 7.5 K/UL (4.8-10.8) Red Blood Count 4.21 M/UL (4.20-5.40) Hemoglobin 13.4 G/DL (12.0-16.0) Hematocrit 39.6 % (37.0-47.0) Mean Corpuscular Volume 94 FL (80-99) Mean Corpuscular Hemoglobin 31.8 PG (27.0-31.0) H Mean Corpuscular Hemoglobin Concent 33.8 G/DL (32.0-36.0) Red Cell Distribution Width 12.5 % (11.6-14.8) Platelet Count 293 K/UL (150-450) Mean Platelet Volume 5.4 FL (6.5-10.1) L Neutrophils (%) (Auto) 59.3 % (45.0-75.0) Lymphocytes (%) (Auto) 29.7 % (20.0-45.0) Monocytes (%) (Auto) 7.4 % (1.0-10.0) Eosinophils (%) (Auto) 2.6 % (0.0-3.0) Basophils (%) (Auto) 1.0 % (0.0-2.0) Sodium Level 142 MMOL/L (136-145) Potassium Level 3.6 MMOL/L (3.5-5.1) Chloride Level 109 MMOL/L (98-107) H Carbon Dioxide Level 24 MMOL/L (21-32) Anion Gap 9 mmol/L (5-15) Blood Urea Nitrogen 7 mg/dL (7-18) Creatinine 0.8 MG/DL (0.55-1.30) Estimat Glomerular Filtration Rate mL/min (>60) Glucose Level 103 MG/DL (74-106) Calcium Level 9.1 MG/DL (8.5-10.1) Thyroid Stimulating Hormone (TSH) 0.884 uiU/mL (0.360-3.740) Free Thyroxine 1.34 NG/DL (0.10-1.46) Current Medications Medications (Trade) Dose Ordered Sig/Kvng Route PRN Reason Start Time Stop Time Status Last Admin Dose Admin Acetaminophen/ Hydrocodone Bitart (Cunningham 5/325) 1 tab Q4H PRN ORAL For Pain 03/08/17 03:15 03/15/17 03:14 Amlodipine Besylate (Norvasc) 10 mg DAILY ORAL 03/08/17 09:00 04/07/17 08:59 03/08/17 09:15 Aspirin (Ecotrin) 81 mg DAILY ORAL 03/08/17 09:00 04/07/17 08:59 03/08/17 09:14 Atorvastatin Calcium (Lipitor) 5 mg BEDTIME ORAL 03/08/17 21:00 04/07/17 20:59 03/11/17 21:05 Bisacodyl (Dulcolax) 10 mg DAILY ORAL 03/08/17 09:00 04/07/17 08:59 03/08/17 09:15 Cefepime HCl 2 gm/ Sodium Chloride 110 ml @ 220 mls/hr EVERY 12 HOURS IVPB 03/07/17 21:00 03/14/17 20:59 03/12/17 11:06 Dextrose/Sodium Chloride 1,000 ml @ 50 mls/hr Q20H IV 03/09/17 13:00 04/08/17 12:59 03/11/17 05:49 Docusate Sodium (Colace) 100 mg TWICE A DAY ORAL 03/08/17 09:00 04/07/17 08:59 03/08/17 09:15 Enalapril Maleate (Vasotec) 2.5 mg DAILY ORAL 03/08/17 09:00 04/07/17 08:59 03/08/17 09:15 Furosemide (Lasix) 20 mg DAILY ORAL 03/08/17 09:00 04/07/17 08:59 03/08/17 09:15 Heparin Sodium (Porcine) (Heparin 5000 units/ml) 5,000 units EVERY 12 HOURS SUBQ 03/08/17 09:00 04/07/17 08:59 03/11/17 21:06 Mirtazapine (Remeron) 15 mg BEDTIME ORAL 03/08/17 21:00 04/07/17 20:59 03/11/17 21:05 Oxybutynin Chloride (Ditropan) 5 mg BID ORAL 03/08/17 18:00 04/07/17 17:59 Potassium Chloride (K-Dur) 20 meq DAILY ORAL 03/09/17 09:00 04/08/17 08:59 Vancomycin HCl (Vanco rx to dose) 1 ea DAILY PRN MISC Per rx protocol 03/07/17 19:15 04/06/17 19:14 Vancomycin/Sodium Chloride 250 ml @ 166.667 mls/hr Q12HR@1100,2300 IVPB 03/09/17 23:00 03/14/17 22:59 03/12/17 13:42 Ayanna Salazar M.D. Mar 12, 2017 14:46
[2017-03-12 16:00] VITALS: BP 124/64
[2017-03-12] MEDS ORDERED: Tubing IV Secondary IV ONE (16:28)
[2017-03-12 20:00] VITALS: BP 127/65
--- NOTE | 2017-03-12 21:26 | General Progress Note ---
Assessment/Plan Problem List: (1) Sepsis ICD Codes: A41.9 - Sepsis SNOMED: 02555859 (2) Pneumonia ICD Codes: J18.9 - Pneumonia, unspecified organism SNOMED: 945548382 Qualifiers: Status: progressing Assessment/Plan peg cancelled due to bradycardia poor po intake peg per gi afebrile pna improving Subjective ROS Limited/Unobtainable: Yes Allergies: Coded Allergies: PENICILLINS (Verified Allergy, Unknown, 07/30/08) Objective Last 24 Hour Vital Signs Date Time Temp Pulse Resp B/P (MAP) Pulse Ox O2 Delivery O2 Flow Rate FiO2 03/12/17 16:00 65 03/12/17 16:00 97.0 84 21 124/64 96 Room Air 03/12/17 12:00 97.9 55 20 139/70 99 Room Air 03/12/17 12:00 46 03/12/17 08:00 98.0 48 21 139/74 97 Room Air 03/12/17 08:00 44 03/12/17 04:00 98.2 48 18 119/69 95 Room Air 03/12/17 04:00 49 03/12/17 00:00 97.7 49 18 122/69 95 Room Air 03/12/17 00:00 49 Intake and Output 03/12/17 03/13/17 19:00 07:00 Intake Total 1133.334 ml Balance 1133.334 ml Intake Oral 350 ml IV Total 783.334 ml # Voids 3 # Bowel Movements 1 Laboratory Tests 03/12/17 02:50: White Blood Count 7.5, Red Blood Count 4.21, Hemoglobin 13.4, Hematocrit 39.6, Mean Corpuscular Volume 94, Mean Corpuscular Hemoglobin 31.8H, Mean Corpuscular Hemoglobin Concent 33.8, Red Cell Distribution Width 12.5, Platelet Count 293, Mean Platelet Volume 5.4L, Neutrophils (%) (Auto) 59.3, Lymphocytes (%) (Auto) 29.7, Monocytes (%) (Auto) 7.4, Eosinophils (%) (Auto) 2.6, Basophils (%) (Auto ) 1.0, Sodium Level 142, Potassium Level 3.6, Chloride Level 109H, Carbon Dioxide Level 24, Anion Gap 9, Blood Urea Nitrogen 7, Creatinine 0.8, Estimat Glomerular Filtration Rate , Glucose Level 103, Calcium Level 9.1, Troponin I 0.005, Thyroid Stimulating Hormone (TSH) 0.884, Free Thyroxine 1.34 Height (Feet): 5 Height (Inches): 3.00 Weight (Pounds): 107 Neck: supple Cardiovascular: normal rate Abdomen: soft Summer Gaines MD Mar 12, 2017 21:26
--- NOTE | 2017-03-12 21:26 | General Progress Note ---
Assessment/Plan Problem List: (1) Sepsis ICD Codes: A41.9 - Sepsis SNOMED: 69407807 (2) Pneumonia ICD Codes: J18.9 - Pneumonia, unspecified organism SNOMED: 018762420 Qualifiers: Status: progressing Assessment/Plan peg cancelled due to bradycardia poor po intake peg per gi afebrile pna improving Subjective ROS Limited/Unobtainable: Yes Allergies: Coded Allergies: PENICILLINS (Verified Allergy, Unknown, 07/30/08) Objective Last 24 Hour Vital Signs Date Time Temp Pulse Resp B/P (MAP) Pulse Ox O2 Delivery O2 Flow Rate FiO2 03/12/17 16:00 65 03/12/17 16:00 97.0 84 21 124/64 96 Room Air 03/12/17 12:00 97.9 55 20 139/70 99 Room Air 03/12/17 12:00 46 03/12/17 08:00 98.0 48 21 139/74 97 Room Air 03/12/17 08:00 44 03/12/17 04:00 98.2 48 18 119/69 95 Room Air 03/12/17 04:00 49 03/12/17 00:00 97.7 49 18 122/69 95 Room Air 03/12/17 00:00 49 Intake and Output 03/12/17 03/13/17 19:00 07:00 Intake Total 1133.334 ml Balance 1133.334 ml Intake Oral 350 ml IV Total 783.334 ml # Voids 3 # Bowel Movements 1 Laboratory Tests 03/12/17 02:50: White Blood Count 7.5, Red Blood Count 4.21, Hemoglobin 13.4, Hematocrit 39.6, Mean Corpuscular Volume 94, Mean Corpuscular Hemoglobin 31.8H, Mean Corpuscular Hemoglobin Concent 33.8, Red Cell Distribution Width 12.5, Platelet Count 293, Mean Platelet Volume 5.4L, Neutrophils (%) (Auto) 59.3, Lymphocytes (%) (Auto) 29.7, Monocytes (%) (Auto) 7.4, Eosinophils (%) (Auto) 2.6, Basophils (%) (Auto ) 1.0, Sodium Level 142, Potassium Level 3.6, Chloride Level 109H, Carbon Dioxide Level 24, Anion Gap 9, Blood Urea Nitrogen 7, Creatinine 0.8, Estimat Glomerular Filtration Rate , Glucose Level 103, Calcium Level 9.1, Troponin I 0.005, Thyroid Stimulating Hormone (TSH) 0.884, Free Thyroxine 1.34 Height (Feet): 5 Height (Inches): 3.00 Weight (Pounds): 107 Neck: supple Cardiovascular: normal rate Abdomen: soft Summer Gaines MD Mar 12, 2017 21:26
--- NOTE | 2017-03-12 21:26 | General Progress Note ---
Assessment/Plan Problem List: (1) Sepsis ICD Codes: A41.9 - Sepsis SNOMED: 21725603 (2) Pneumonia ICD Codes: J18.9 - Pneumonia, unspecified organism SNOMED: 174546284 Qualifiers: Status: progressing Assessment/Plan peg cancelled due to bradycardia poor po intake peg per gi afebrile pna improving Subjective ROS Limited/Unobtainable: Yes Allergies: Coded Allergies: PENICILLINS (Verified Allergy, Unknown, 07/30/08) Objective Last 24 Hour Vital Signs Date Time Temp Pulse Resp B/P (MAP) Pulse Ox O2 Delivery O2 Flow Rate FiO2 03/12/17 16:00 65 03/12/17 16:00 97.0 84 21 124/64 96 Room Air 03/12/17 12:00 97.9 55 20 139/70 99 Room Air 03/12/17 12:00 46 03/12/17 08:00 98.0 48 21 139/74 97 Room Air 03/12/17 08:00 44 03/12/17 04:00 98.2 48 18 119/69 95 Room Air 03/12/17 04:00 49 03/12/17 00:00 97.7 49 18 122/69 95 Room Air 03/12/17 00:00 49 Intake and Output 03/12/17 03/13/17 19:00 07:00 Intake Total 1133.334 ml Balance 1133.334 ml Intake Oral 350 ml IV Total 783.334 ml # Voids 3 # Bowel Movements 1 Laboratory Tests 03/12/17 02:50: White Blood Count 7.5, Red Blood Count 4.21, Hemoglobin 13.4, Hematocrit 39.6, Mean Corpuscular Volume 94, Mean Corpuscular Hemoglobin 31.8H, Mean Corpuscular Hemoglobin Concent 33.8, Red Cell Distribution Width 12.5, Platelet Count 293, Mean Platelet Volume 5.4L, Neutrophils (%) (Auto) 59.3, Lymphocytes (%) (Auto) 29.7, Monocytes (%) (Auto) 7.4, Eosinophils (%) (Auto) 2.6, Basophils (%) (Auto ) 1.0, Sodium Level 142, Potassium Level 3.6, Chloride Level 109H, Carbon Dioxide Level 24, Anion Gap 9, Blood Urea Nitrogen 7, Creatinine 0.8, Estimat Glomerular Filtration Rate , Glucose Level 103, Calcium Level 9.1, Troponin I 0.005, Thyroid Stimulating Hormone (TSH) 0.884, Free Thyroxine 1.34 Height (Feet): 5 Height (Inches): 3.00 Weight (Pounds): 107 Neck: supple Cardiovascular: normal rate Abdomen: soft Summer Gaines MD Mar 12, 2017 21:26
[2017-03-13] VITALS: BP 136/77
[2017-03-13 04:00] VITALS: BP 126/71
[2017-03-13 08:00] VITALS: BP 134/67
[2017-03-13] MEDS: Aspirin EC 81mg tab ORAL SCH (09:00)
--- NOTE | 2017-03-13 09:46 | Consultation ---
DATE OF CONSULTATION: 03/12/2017 HEMATOLOGY/ONCOLOGY CONSULTATION REQUESTING PHYSICIAN: Summer Gaines M.D. REASON FOR CONSULTATION: Evaluation for failure to thrive. IDENTIFYING DATA: Dear Dr. Summer Gaines, The patient is a pleasant 76-year-old female with past medical history significant for hypertension , CAD, psychiatric disorder, presents to the hospital through the ER with altered mental status, has been seen by Neurology, potentially secondary to underlying pneumonia. Has been desaturating, 95% on room air, temperature 98.2 degrees Fahrenheit. Subsequently evaluated by Dr. Martinez for G-tube placement, however, found to be bradycardic and Cardiology Service consulted. The patient currently remains nonverbal. Hematology consulted given failure to thrive. PSA 1.5. PAST MEDICAL HISTORY: As noted above, CAD, hypertension, psychiatric disorder, and tardive dyskinesia. MEDICATIONS: Amlodipine Lipitor, Cogentin, Dulcolax, Colace, Vasotec, Webster, Lasix, Remeron, and Ditropan. ALLERGIES: Penicillin. SOCIAL HISTORY: She resides in a long term facility. FAMILY HISTORY: Noncontributory. REVIEW OF SYSTEMS: Unable to obtain, nonverbal. PHYSICAL EXAMINATION: GENERAL: No acute distress. VITAL SIGNS: Reviewed. PULMONARY: Decreased breath sounds. CARDIOVASCULAR: Regular rate. No S3 or S4. ABDOMEN: Soft, nontender, and nondistended. EXTREMITIES: There is 1+ edema. LABORATORY AND DIAGNOSTIC DATA: WBC 7.1, hemoglobin 13.5, hematocrit 40 and platelet count 292,000. INR is 1. . TSH and free T4 is 1.34. ASSESSMENT AND RECOMMENDATIONS: 1. Failure to thrive. We will send possible tumor markers. Imaging at this time reviewed with ultrasound of the abdomen. No evidence of malignancy. Potentially secondary to decreased p.o. intake. The patient is on puree nectar thick liquid diet. Has been seen by GI Service and PEG tube placement on hold given bradycardia. 2. Altered mental status. Has been seen by Neurology Service, unchanged, nonverbal. 3. Intractable nausea and vomiting, seen by GI. 4. Acute abdominal pain. 5. Hypertension. 6. Agitation. 7. Schizophrenia. I appreciate the consultation. Gerald Morelos M.D. DR: SHEILA JOB#: [id number] CC:
[2017-03-13 10:01] LABS: EOSINOPHILS % (AUTO) 2.7 % (0.0-3.0); HEMATOCRIT 45.9 % (37.0-47.0); HEMOGLOBIN 15.3 G/DL (12.0-16.0); LYMPHOCYTES % (AUTO) 35.9 % (20.0-45.0); MEAN CORPUSCULAR VOLUME 95 FL (80-99); MONOCYTES % (AUTO) 6.4 % (1.0-10.0); PLATELET COUNT 278 K/UL (150-450); RED BLOOD COUNT 4.81 M/UL (4.20-5.40); WHITE BLOOD COUNT 7.1 K/UL (4.8-10.8)
[2017-03-13 10:15] LABS: ANION GAP 7 mmol/L (5-15); BLOOD UREA NITROGEN 9 mg/dL (7-18); CALCIUM 9.6 MG/DL (8.5-10.1); CARBON DIOXIDE 25 MMOL/L (21-32); CHLORIDE 107 MMOL/L (98-107); CREATININE 0.8 MG/DL (0.55-1.30); POTASSIUM 4.2 MMOL/L (3.5-5.1); SODIUM 139 MMOL/L (136-145)
--- NOTE | 2017-03-13 10:46 | GI Progress Note ---
Assessment/Plan Problems: (1) Encounter for PEG (percutaneous endoscopic gastrostomy) ICD Codes: Z43.1 - Encounter for attention to gastrostomy SNOMED: 708755702, 428876605 (2) Altered mental status ICD Codes: R41.82 - Altered mental status, unspecified SNOMED: 960368444 (3) Intractable vomiting (4) At risk for dehydration due to poor fluid intake ICD Codes: Z91.89 - Other specified personal risk factors, not elsewhere classified SNOMED: 20501292, 036060030 (5) Acute abdominal pain Status: unchanged Status Narrative Discussed with Dr. Martinez. Assessment/Plan PEG on hold, not cleared by cardiology for bradycardia resume diet per ST/dietary >> Cardiac PUREE/NECTAR THICK LIQUIDS, CRUSH CRUSHABLE MEDS/PRESENT IN PUREE - push PO - 1:1 feeding - calorie count NGT placement today, TF's per dietary after confirmation bowel regime fu labs The patient was seen and examined at bedside and all new and available data was reviewed in the patients chart. I agree with the above findings, impression and plan. (Patient seen earlier today. Signature stamp does not reflect patient encounter time.). - Dante Martinez MD Subjective Subjective limited Objective Last 24 Hour Vital Signs Date Time Temp Pulse Resp B/P (MAP) Pulse Ox O2 Delivery O2 Flow Rate FiO2 03/13/17 08:00 98.0 55 20 134/67 99 Room Air 03/13/17 04:00 97.7 80 20 126/71 98 Room Air 03/13/17 03:41 49 03/13/17 00:00 97.5 51 18 136/77 100 Nasal Cannula 03/12/17 23:52 56 03/12/17 20:00 96.6 50 16 127/65 98 Room Air 03/12/17 19:56 47 03/12/17 16:00 65 03/12/17 16:00 97.0 84 21 124/64 96 Room Air 03/12/17 12:00 97.9 55 20 139/70 99 Room Air 03/12/17 12:00 46 Laboratory Tests Test 03/13/17 09:30 White Blood Count 7.1 K/UL (4.8-10.8) Red Blood Count 4.81 M/UL (4.20-5.40) Hemoglobin 15.3 G/DL (12.0-16.0) Hematocrit 45.9 % (37.0-47.0) Mean Corpuscular Volume 95 FL (80-99) Mean Corpuscular Hemoglobin 31.8 PG (27.0-31.0) H Mean Corpuscular Hemoglobin Concent 33.3 G/DL (32.0-36.0) Red Cell Distribution Width 13.0 % (11.6-14.8) Platelet Count 278 K/UL (150-450) Mean Platelet Volume 5.5 FL (6.5-10.1) L Neutrophils (%) (Auto) 54.0 % (45.0-75.0) Lymphocytes (%) (Auto) 35.9 % (20.0-45.0) Monocytes (%) (Auto) 6.4 % (1.0-10.0) Eosinophils (%) (Auto) 2.7 % (0.0-3.0) Basophils (%) (Auto) 1.0 % (0.0-2.0) Sodium Level 139 MMOL/L (136-145) Potassium Level 4.2 MMOL/L (3.5-5.1) Chloride Level 107 MMOL/L (98-107) Carbon Dioxide Level 25 MMOL/L (21-32) Anion Gap 7 mmol/L (5-15) Blood Urea Nitrogen 9 mg/dL (7-18) Creatinine 0.8 MG/DL (0.55-1.30) Estimat Glomerular Filtration Rate mL/min (>60) Glucose Level 76 MG/DL (74-106) Calcium Level 9.6 MG/DL (8.5-10.1) Height (Feet): 5 Height (Inches): 3.00 Weight (Pounds): 107 General Appearance: alert Cardiovascular: normal rate Respiratory/Chest: normal breath sounds, no respiratory distress Abdominal Exam: normal bowel sounds, non tender, soft Kaylee Mohr N.PTraci Mar 13, 2017 10:46 STEVE MARTINEZ Mar 15, 2017 09:35
--- NOTE | 2017-03-13 10:46 | GI Progress Note ---
Assessment/Plan Problems: (1) Encounter for PEG (percutaneous endoscopic gastrostomy) ICD Codes: Z43.1 - Encounter for attention to gastrostomy SNOMED: 815761178, 125600076 (2) Altered mental status ICD Codes: R41.82 - Altered mental status, unspecified SNOMED: 664531910 (3) Intractable vomiting (4) At risk for dehydration due to poor fluid intake ICD Codes: Z91.89 - Other specified personal risk factors, not elsewhere classified SNOMED: 94912781, 779912905 (5) Acute abdominal pain Status: unchanged Status Narrative Discussed with Dr. Martinez. Assessment/Plan PEG on hold, not cleared by cardiology for bradycardia resume diet per ST/dietary >> Cardiac PUREE/NECTAR THICK LIQUIDS, CRUSH CRUSHABLE MEDS/PRESENT IN PUREE - push PO - 1:1 feeding - calorie count NGT placement today, TF's per dietary after confirmation bowel regime fu labs The patient was seen and examined at bedside and all new and available data was reviewed in the patients chart. I agree with the above findings, impression and plan. (Patient seen earlier today. Signature stamp does not reflect patient encounter time.). - Dante Martinez MD Subjective Subjective limited Objective Last 24 Hour Vital Signs Date Time Temp Pulse Resp B/P (MAP) Pulse Ox O2 Delivery O2 Flow Rate FiO2 03/13/17 08:00 98.0 55 20 134/67 99 Room Air 03/13/17 04:00 97.7 80 20 126/71 98 Room Air 03/13/17 03:41 49 03/13/17 00:00 97.5 51 18 136/77 100 Nasal Cannula 03/12/17 23:52 56 03/12/17 20:00 96.6 50 16 127/65 98 Room Air 03/12/17 19:56 47 03/12/17 16:00 65 03/12/17 16:00 97.0 84 21 124/64 96 Room Air 03/12/17 12:00 97.9 55 20 139/70 99 Room Air 03/12/17 12:00 46 Laboratory Tests Test 03/13/17 09:30 White Blood Count 7.1 K/UL (4.8-10.8) Red Blood Count 4.81 M/UL (4.20-5.40) Hemoglobin 15.3 G/DL (12.0-16.0) Hematocrit 45.9 % (37.0-47.0) Mean Corpuscular Volume 95 FL (80-99) Mean Corpuscular Hemoglobin 31.8 PG (27.0-31.0) H Mean Corpuscular Hemoglobin Concent 33.3 G/DL (32.0-36.0) Red Cell Distribution Width 13.0 % (11.6-14.8) Platelet Count 278 K/UL (150-450) Mean Platelet Volume 5.5 FL (6.5-10.1) L Neutrophils (%) (Auto) 54.0 % (45.0-75.0) Lymphocytes (%) (Auto) 35.9 % (20.0-45.0) Monocytes (%) (Auto) 6.4 % (1.0-10.0) Eosinophils (%) (Auto) 2.7 % (0.0-3.0) Basophils (%) (Auto) 1.0 % (0.0-2.0) Sodium Level 139 MMOL/L (136-145) Potassium Level 4.2 MMOL/L (3.5-5.1) Chloride Level 107 MMOL/L (98-107) Carbon Dioxide Level 25 MMOL/L (21-32) Anion Gap 7 mmol/L (5-15) Blood Urea Nitrogen 9 mg/dL (7-18) Creatinine 0.8 MG/DL (0.55-1.30) Estimat Glomerular Filtration Rate mL/min (>60) Glucose Level 76 MG/DL (74-106) Calcium Level 9.6 MG/DL (8.5-10.1) Height (Feet): 5 Height (Inches): 3.00 Weight (Pounds): 107 General Appearance: alert Cardiovascular: normal rate Respiratory/Chest: normal breath sounds, no respiratory distress Abdominal Exam: normal bowel sounds, non tender, soft Kaylee Mohr N.PTraci Mar 13, 2017 10:46 STEVE MARTINEZ Mar 15, 2017 09:35
--- NOTE | 2017-03-13 10:46 | GI Progress Note ---
Assessment/Plan Problems: (1) Encounter for PEG (percutaneous endoscopic gastrostomy) ICD Codes: Z43.1 - Encounter for attention to gastrostomy SNOMED: 306522498, 353945560 (2) Altered mental status ICD Codes: R41.82 - Altered mental status, unspecified SNOMED: 095344632 (3) Intractable vomiting (4) At risk for dehydration due to poor fluid intake ICD Codes: Z91.89 - Other specified personal risk factors, not elsewhere classified SNOMED: 04558719, [id number] (5) Acute abdominal pain Status: unchanged Status Narrative Discussed with Dr. Martinez. Assessment/Plan PEG on hold, not cleared by cardiology for bradycardia resume diet per ST/dietary >> Cardiac PUREE/NECTAR THICK LIQUIDS, CRUSH CRUSHABLE MEDS/PRESENT IN PUREE - push PO - 1:1 feeding - calorie count NGT placement today, TF's per dietary after confirmation bowel regime fu labs The patient was seen and examined at bedside and all new and available data was reviewed in the patients chart. I agree with the above findings, impression and plan. (Patient seen earlier today. Signature stamp does not reflect patient encounter time.). - Dante Martinez MD Subjective Subjective limited Objective Last 24 Hour Vital Signs Date Time Temp Pulse Resp B/P (MAP) Pulse Ox O2 Delivery O2 Flow Rate FiO2 03/13/17 08:00 98.0 55 20 134/67 99 Room Air 03/13/17 04:00 97.7 80 20 126/71 98 Room Air 03/13/17 03:41 49 03/13/17 00:00 97.5 51 18 136/77 100 Nasal Cannula 03/12/17 23:52 56 03/12/17 20:00 96.6 50 16 127/65 98 Room Air 03/12/17 19:56 47 03/12/17 16:00 65 03/12/17 16:00 97.0 84 21 124/64 96 Room Air 03/12/17 12:00 97.9 55 20 139/70 99 Room Air 03/12/17 12:00 46 Laboratory Tests Test 03/13/17 09:30 White Blood Count 7.1 K/UL (4.8-10.8) Red Blood Count 4.81 M/UL (4.20-5.40) Hemoglobin 15.3 G/DL (12.0-16.0) Hematocrit 45.9 % (37.0-47.0) Mean Corpuscular Volume 95 FL (80-99) Mean Corpuscular Hemoglobin 31.8 PG (27.0-31.0) H Mean Corpuscular Hemoglobin Concent 33.3 G/DL (32.0-36.0) Red Cell Distribution Width 13.0 % (11.6-14.8) Platelet Count 278 K/UL (150-450) Mean Platelet Volume 5.5 FL (6.5-10.1) L Neutrophils (%) (Auto) 54.0 % (45.0-75.0) Lymphocytes (%) (Auto) 35.9 % (20.0-45.0) Monocytes (%) (Auto) 6.4 % (1.0-10.0) Eosinophils (%) (Auto) 2.7 % (0.0-3.0) Basophils (%) (Auto) 1.0 % (0.0-2.0) Sodium Level 139 MMOL/L (136-145) Potassium Level 4.2 MMOL/L (3.5-5.1) Chloride Level 107 MMOL/L (98-107) Carbon Dioxide Level 25 MMOL/L (21-32) Anion Gap 7 mmol/L (5-15) Blood Urea Nitrogen 9 mg/dL (7-18) Creatinine 0.8 MG/DL (0.55-1.30) Estimat Glomerular Filtration Rate mL/min (>60) Glucose Level 76 MG/DL (74-106) Calcium Level 9.6 MG/DL (8.5-10.1) Height (Feet): 5 Height (Inches): 3.00 Weight (Pounds): 107 General Appearance: alert Cardiovascular: normal rate Respiratory/Chest: normal breath sounds, no respiratory distress Abdominal Exam: normal bowel sounds, non tender, soft Kaylee Mohr N.PTraci Mar 13, 2017 10:46 STEVE MARTINEZ Mar 15, 2017 09:35
[2017-03-13] MEDS: Cefepime HCl 2 GM in NS 110 ML IVPB SCH (10:53)
[2017-03-13] MEDS: Enalapril 2.5mg tab ORAL SCH (10:55)
[2017-03-13] MEDS: Oxybutynin 5mg tab ORAL SCH ×2 (10:55→18:00)
[2017-03-13] MEDS: Docusate 100mg cap ORAL SCH ×2 (10:56→18:00)
[2017-03-13] MEDS: Heparin 5000 units/ml inj SUBQ SCH (10:59)
[2017-03-13] MEDS: Bisacodyl EC 5mg tab ORAL SCH (11:40)
[2017-03-13 12:00] VITALS: BP 135/70
--- NOTE | 2017-03-13 13:41 | Cardiac Electrophysiology PN ---
Assessment/Plan Assessment/Plan 1. Bradycardia. EKG shows sinus rhythm and is a normal electrocardiogram. Telemetry shows bradycardia heart rate still in the 40s. Ruled out myocardial infarction protocol. Echocardiogram showed Nl EF 60%.Off any sinus node or AV kierra blocking agent.? DC psych meds. 2. Hypertension. Continue Norvasc 10 mg daily and Enalapril 2.5 mg daily. On Lasix 20 mg daily. 3. Sepsis, on IV antibiotics with vancomycin and cefepime per Dr. Salazar. 4. Dysphagia, Percutaneous endoscopic gastrostomy placement pending the patient heart rate improves. 5. S/P Right BKA DW RN, Dr Martinez and Dr Gaines Subjective Subjective Still mayela down to 41. No chest pain or SOB. RN at bedside. Objective Last 24 Hour Vital Signs Date Time Temp Pulse Resp B/P (MAP) Pulse Ox O2 Delivery O2 Flow Rate FiO2 03/13/17 10:55 127/59 03/13/17 10:54 48 127/59 03/13/17 08:00 98.0 55 20 134/67 99 Room Air 03/13/17 04:00 97.7 80 20 126/71 98 Room Air 03/13/17 03:41 49 03/13/17 00:00 97.5 51 18 136/77 100 Nasal Cannula 03/12/17 23:52 56 03/12/17 20:00 96.6 50 16 127/65 98 Room Air 03/12/17 19:56 47 03/12/17 16:00 65 03/12/17 16:00 97.0 84 21 124/64 96 Room Air Laboratory Tests Test 03/13/17 09:30 White Blood Count 7.1 K/UL (4.8-10.8) Red Blood Count 4.81 M/UL (4.20-5.40) Hemoglobin 15.3 G/DL (12.0-16.0) Hematocrit 45.9 % (37.0-47.0) Mean Corpuscular Volume 95 FL (80-99) Mean Corpuscular Hemoglobin 31.8 PG (27.0-31.0) H Mean Corpuscular Hemoglobin Concent 33.3 G/DL (32.0-36.0) Red Cell Distribution Width 13.0 % (11.6-14.8) Platelet Count 278 K/UL (150-450) Mean Platelet Volume 5.5 FL (6.5-10.1) L Neutrophils (%) (Auto) 54.0 % (45.0-75.0) Lymphocytes (%) (Auto) 35.9 % (20.0-45.0) Monocytes (%) (Auto) 6.4 % (1.0-10.0) Eosinophils (%) (Auto) 2.7 % (0.0-3.0) Basophils (%) (Auto) 1.0 % (0.0-2.0) Sodium Level 139 MMOL/L (136-145) Potassium Level 4.2 MMOL/L (3.5-5.1) Chloride Level 107 MMOL/L (98-107) Carbon Dioxide Level 25 MMOL/L (21-32) Anion Gap 7 mmol/L (5-15) Blood Urea Nitrogen 9 mg/dL (7-18) Creatinine 0.8 MG/DL (0.55-1.30) Estimat Glomerular Filtration Rate mL/min (>60) Glucose Level 76 MG/DL (74-106) Calcium Level 9.6 MG/DL (8.5-10.1) Objective HEAD AND NECK: No JVD. LUNGS: Coarse rhonchi. CARDIOVASCULAR: Bradycardic S1 and S2 with no gallop or murmur. ABDOMEN: Soft. EXTREMITIES: Status post Right below-knee amputation. JOSEPHINE STRONG Mar 13, 2017 13:41
[2017-03-13] MEDS: Vancomycin 750mg/NS 250ml IVPB SCH (13:48)
[2017-03-13 16:00] VITALS: BP 124/73
--- NOTE | 2017-03-13 16:47 | Pulmonology Progress Note ---
Assessment/Plan Assessment/Plan 1. Atelectasis, possible pneumonia. 2. Altered mental status, poorly responsive 3. Psychosis. 4. Tardive dyskinesia. 5. Coronary heart disease. 6. Hypertension. 7. Sinus bradycardia PLAN: abx per ID aspiration precautions o2 prn wound care EGD/PEG when HR stable Subjective ROS Limited/Unobtainable: Yes Allergies: Coded Allergies: PENICILLINS (Verified Allergy, Unknown, 07/30/08) Objective Last 24 Hour Vital Signs Date Time Temp Pulse Resp B/P (MAP) Pulse Ox O2 Delivery O2 Flow Rate FiO2 03/13/17 10:55 127/59 03/13/17 10:54 48 127/59 03/13/17 08:00 98.0 55 20 134/67 99 Room Air 03/13/17 04:00 97.7 80 20 126/71 98 Room Air 03/13/17 03:41 49 03/13/17 00:00 97.5 51 18 136/77 100 Nasal Cannula 03/12/17 23:52 56 03/12/17 20:00 96.6 50 16 127/65 98 Room Air 03/12/17 19:56 47 General Appearance: no acute distress HEENT: atraumatic Respiratory/Chest: lungs clear Cardiovascular: normal rate Neurologic/Psychiatric: disoriented Laboratory Tests 03/13/17 09:30: White Blood Count 7.1, Red Blood Count 4.81, Hemoglobin 15.3, Hematocrit 45.9, Mean Corpuscular Volume 95, Mean Corpuscular Hemoglobin 31.8H, Mean Corpuscular Hemoglobin Concent 33.3, Red Cell Distribution Width 13.0, Platelet Count 278, Mean Platelet Volume 5.5L, Neutrophils (%) (Auto) 54.0, Lymphocytes (%) (Auto) 35.9, Monocytes (%) (Auto) 6.4, Eosinophils (%) (Auto) 2.7, Basophils (%) (Auto ) 1.0, Sodium Level 139, Potassium Level 4.2, Chloride Level 107, Carbon Dioxide Level 25, Anion Gap 7, Blood Urea Nitrogen 9, Creatinine 0.8, Estimat Glomerular Filtration Rate , Glucose Level 76, Calcium Level 9.6 Current Medications Medications (Trade) Dose Ordered Sig/Kvng Route PRN Reason Start Time Stop Time Status Last Admin Dose Admin Acetaminophen/ Hydrocodone Bitart ([place] 5/325) 1 tab Q4H PRN ORAL For Pain 03/08/17 03:15 03/15/17 03:14 Amlodipine Besylate (Norvasc) 10 mg DAILY ORAL 03/08/17 09:00 04/07/17 08:59 03/13/17 10:54 Aspirin (Ecotrin) 81 mg DAILY ORAL 03/08/17 09:00 04/07/17 08:59 03/08/17 09:14 Atorvastatin Calcium (Lipitor) 5 mg BEDTIME ORAL 03/08/17 21:00 04/07/17 20:59 03/12/17 20:27 Bisacodyl (Dulcolax) 10 mg DAILY ORAL 03/08/17 09:00 04/07/17 08:59 03/13/17 11:40 Cefepime HCl 2 gm/ Sodium Chloride 110 ml @ 220 mls/hr EVERY 12 HOURS IVPB 03/07/17 21:00 03/14/17 20:59 03/13/17 10:53 Dextrose/Sodium Chloride 1,000 ml @ 50 mls/hr Q20H IV 03/09/17 13:00 04/08/17 12:59 03/12/17 21:51 Docusate Sodium (Colace) 100 mg TWICE A DAY ORAL 03/08/17 09:00 04/07/17 08:59 03/13/17 10:56 Enalapril Maleate (Vasotec) 2.5 mg DAILY ORAL 03/08/17 09:00 04/07/17 08:59 03/13/17 10:55 Furosemide (Lasix) 20 mg DAILY ORAL 03/08/17 09:00 04/07/17 08:59 03/13/17 10:53 Heparin Sodium (Porcine) (Heparin 5000 units/ml) 5,000 units EVERY 12 HOURS SUBQ 03/08/17 09:00 04/07/17 08:59 03/13/17 10:59 Mirtazapine (Remeron) 15 mg BEDTIME ORAL 03/08/17 21:00 04/07/17 20:59 03/12/17 20:27 Oxybutynin Chloride (Ditropan) 5 mg BID ORAL 03/08/17 18:00 04/07/17 17:59 03/13/17 10:55 Potassium Chloride (K-Dur) 20 meq DAILY ORAL 03/09/17 09:00 04/08/17 08:59 03/13/17 10:56 Vancomycin HCl (Vanco rx to dose) 1 ea DAILY PRN MISC Per rx protocol 03/07/17 19:15 04/06/17 19:14 Vancomycin/Sodium Chloride 250 ml @ 166.667 mls/hr Q12HR@1100,2300 IVPB 03/09/17 23:00 03/14/17 22:59 03/13/17 13:48 KENIA DOYLE Mar 13, 2017 16:47
--- NOTE | 2017-03-13 16:49 | Diagnostic Imaging Report ---
Indication: Post nasogastric tube placement Technique: Supine view of the abdomen Comparison: none Findings: There is a nasogastric tube in place, tip projecting at the level of the gastric body. Bowel gas pattern is unremarkable. Surgical clips are seen in both groins. A vascular stent is seen the region of the left common iliac artery Impression: Satisfactory nasogastric tube position
[2017-03-13] MEDS: D5NS 1,000 ML IV SCH (17:00)
--- NOTE | 2017-03-13 18:07 | Infectious Diseases Prog Note ---
Assessment/Plan Problems: (1) Pneumonia Assessment & Plan: suspect aspiration, repeated CXR showed increase LLL consolidation, screening for influenza is negative , continue vancomycin with cefepime empirically , monitor CXR (2) Sepsis Assessment & Plan: continue vancomycin with cefepime empirically pending blood culture (3) Altered awareness, transient Assessment & Plan: suspect due to sepsis, recommend brain image and neuro consult (4) At risk for aspiration Assessment & Plan: recommend tube feeding, continue ivf (5) At risk for dehydration due to poor fluid intake Assessment & Plan: tube feeding was canceled due to bradycardia, continue iv hydration and tele monitor cardiology is following (6) Bradycardia Assessment & Plan: unclear etiology , cardiology is following Subjective ROS Limited/Unobtainable: Yes Allergies: Coded Allergies: PENICILLINS (Verified Allergy, Unknown, 07/30/08) Subjective she is still in tele unite for bradycardia, and tube feeding was canceled , looks comfortable, nonverbal, dosent follow commands Objective Vital Signs Last 24 Hour Vital Signs Date Time Temp Pulse Resp B/P (MAP) Pulse Ox O2 Delivery O2 Flow Rate FiO2 03/13/17 16:00 56 03/13/17 10:55 127/59 03/13/17 10:54 48 127/59 03/13/17 08:00 98.0 55 20 134/67 99 Room Air 03/13/17 04:00 97.7 80 20 126/71 98 Room Air 03/13/17 03:41 49 03/13/17 00:00 97.5 51 18 136/77 100 Nasal Cannula 03/12/17 23:52 56 03/12/17 20:00 96.6 50 16 127/65 98 Room Air 03/12/17 19:56 47 Height (Feet): 5 Height (Inches): 3.00 Weight (Pounds): 107 General Appearance: WD/WN, no acute distress HEENT: normocephalic, atraumatic, anicteric, mucous membranes moist, PERRL Respiratory/Chest: chest wall non-tender, lungs clear, normal breath sounds, no respiratory distress Cardiovascular: normal peripheral pulses, normal rate, regular rhythm, no gallop/murmur Abdomen: normal bowel sounds, soft, non tender, no organomegaly, non distended , no mass, no scars Extremities: no cyanosis, no clubbing Laboratory Tests Test 03/13/17 09:30 White Blood Count 7.1 K/UL (4.8-10.8) Red Blood Count 4.81 M/UL (4.20-5.40) Hemoglobin 15.3 G/DL (12.0-16.0) Hematocrit 45.9 % (37.0-47.0) Mean Corpuscular Volume 95 FL (80-99) Mean Corpuscular Hemoglobin 31.8 PG (27.0-31.0) H Mean Corpuscular Hemoglobin Concent 33.3 G/DL (32.0-36.0) Red Cell Distribution Width 13.0 % (11.6-14.8) Platelet Count 278 K/UL (150-450) Mean Platelet Volume 5.5 FL (6.5-10.1) L Neutrophils (%) (Auto) 54.0 % (45.0-75.0) Lymphocytes (%) (Auto) 35.9 % (20.0-45.0) Monocytes (%) (Auto) 6.4 % (1.0-10.0) Eosinophils (%) (Auto) 2.7 % (0.0-3.0) Basophils (%) (Auto) 1.0 % (0.0-2.0) Sodium Level 139 MMOL/L (136-145) Potassium Level 4.2 MMOL/L (3.5-5.1) Chloride Level 107 MMOL/L (98-107) Carbon Dioxide Level 25 MMOL/L (21-32) Anion Gap 7 mmol/L (5-15) Blood Urea Nitrogen 9 mg/dL (7-18) Creatinine 0.8 MG/DL (0.55-1.30) Estimat Glomerular Filtration Rate mL/min (>60) Glucose Level 76 MG/DL (74-106) Calcium Level 9.6 MG/DL (8.5-10.1) Current Medications Medications (Trade) Dose Ordered Sig/Kvng Route PRN Reason Start Time Stop Time Status Last Admin Dose Admin Acetaminophen/ Hydrocodone Bitart ([place] 5/325) 1 tab Q4H PRN ORAL For Pain 03/08/17 03:15 03/15/17 03:14 Amlodipine Besylate (Norvasc) 10 mg DAILY ORAL 03/08/17 09:00 04/07/17 08:59 03/13/17 10:54 Aspirin (Ecotrin) 81 mg DAILY ORAL 03/08/17 09:00 04/07/17 08:59 03/08/17 09:14 Atorvastatin Calcium (Lipitor) 5 mg BEDTIME ORAL 03/08/17 21:00 04/07/17 20:59 03/12/17 20:27 Bisacodyl (Dulcolax) 10 mg DAILY ORAL 03/08/17 09:00 04/07/17 08:59 03/13/17 11:40 Cefepime HCl 2 gm/ Sodium Chloride 110 ml @ 220 mls/hr EVERY 12 HOURS IVPB 03/07/17 21:00 03/14/17 20:59 03/13/17 10:53 Dextrose/Sodium Chloride 1,000 ml @ 50 mls/hr Q20H IV 03/09/17 13:00 04/08/17 12:59 03/12/17 21:51 Docusate Sodium (Colace) 100 mg TWICE A DAY ORAL 03/08/17 09:00 04/07/17 08:59 03/13/17 10:56 Enalapril Maleate (Vasotec) 2.5 mg DAILY ORAL 03/08/17 09:00 04/07/17 08:59 03/13/17 10:55 Furosemide (Lasix) 20 mg DAILY ORAL 03/08/17 09:00 04/07/17 08:59 03/13/17 10:53 Heparin Sodium (Porcine) (Heparin 5000 units/ml) 5,000 units EVERY 12 HOURS SUBQ 03/08/17 09:00 04/07/17 08:59 03/13/17 10:59 Mirtazapine (Remeron) 15 mg BEDTIME ORAL 03/08/17 21:00 04/07/17 20:59 03/12/17 20:27 Oxybutynin Chloride (Ditropan) 5 mg BID ORAL 03/08/17 18:00 04/07/17 17:59 03/13/17 10:55 Potassium Chloride (K-Dur) 20 meq DAILY ORAL 03/09/17 09:00 04/08/17 08:59 03/13/17 10:56 Vancomycin HCl (Vanco rx to dose) 1 ea DAILY PRN MISC Per rx protocol 03/07/17 19:15 04/06/17 19:14 Vancomycin/Sodium Chloride 250 ml @ 166.667 mls/hr Q12HR@1100,2300 IVPB 03/09/17 23:00 03/14/17 22:59 03/13/17 13:48 Ayanna Salazar M.D. Mar 13, 2017 18:07
--- NOTE | 2017-03-13 18:18 | General Progress Note ---
Assessment/Plan Assessment/Plan ASSESSMENT AND RECOMMENDATIONS: 1. Failure to thrive. We will send possible tumor markers. No evidence of malignancy. 2. Altered mental status. Has been seen by Neurology Service, unchanged, nonverbal. 3. PEG tube 4. Acute abdominal pain. 5. Hypertension. 6. Agitation. 7. Schizophrenia. Subjective ROS Limited/Unobtainable: Yes Allergies: Coded Allergies: PENICILLINS (Verified Allergy, Unknown, 07/30/08) All Systems: reviewed and negative except above Objective Last 24 Hour Vital Signs Date Time Temp Pulse Resp B/P (MAP) Pulse Ox O2 Delivery O2 Flow Rate FiO2 03/13/17 16:00 56 03/13/17 10:55 127/59 03/13/17 10:54 48 127/59 03/13/17 08:00 98.0 55 20 134/67 99 Room Air 03/13/17 04:00 97.7 80 20 126/71 98 Room Air 03/13/17 03:41 49 03/13/17 00:00 97.5 51 18 136/77 100 Nasal Cannula 03/12/17 23:52 56 03/12/17 20:00 96.6 50 16 127/65 98 Room Air 03/12/17 19:56 47 Laboratory Tests 03/13/17 09:30: White Blood Count 7.1, Red Blood Count 4.81, Hemoglobin 15.3, Hematocrit 45.9, Mean Corpuscular Volume 95, Mean Corpuscular Hemoglobin 31.8H, Mean Corpuscular Hemoglobin Concent 33.3, Red Cell Distribution Width 13.0, Platelet Count 278, Mean Platelet Volume 5.5L, Neutrophils (%) (Auto) 54.0, Lymphocytes (%) (Auto) 35.9, Monocytes (%) (Auto) 6.4, Eosinophils (%) (Auto) 2.7, Basophils (%) (Auto ) 1.0, Sodium Level 139, Potassium Level 4.2, Chloride Level 107, Carbon Dioxide Level 25, Anion Gap 7, Blood Urea Nitrogen 9, Creatinine 0.8, Estimat Glomerular Filtration Rate , Glucose Level 76, Calcium Level 9.6 Height (Feet): 5 Height (Inches): 3.00 Weight (Pounds): 107 General Appearance: no apparent distress EENT: normal ENT inspection 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
--- NOTE | 2017-03-14 17:54 | Cardiology Report ---
APPROVED REPORT EXAM: Two-dimensional and M-mode echocardiogram with Doppler and color Doppler. INDICATION Bradycardia M-Mode DIMENSIONS IVSd.9 (0.7-1.1cm)Left Atrium (MM)3.8 (1.6-4.0cm) LVDd3.6 (3.5-5.6cm)Aortic Root2.7 (2.0-3.7cm) PWd1.1 (0.7-1.1cm)Aortic Cusp Exc.1.9 (1.5-2.0cm) LVDs1.8 (2.5-4.0cm) PWs1.8 cm Normal left ventricular chamber size, systolic function and wall motion. Left ventricular ejection fraction estimated to be 60 %. No evidence of left ventricular hypertrophy. Anterior Echo-free space, may be due to pericardial fat or effusion. All other chamber sizes are within normal limits. Focal aortic valve sclerosis with adequate cusp excursion. Thickened mitral valve leaflets with normal excursion. Mild mitral annulus and aortic root calcification. Pulmonic valve not well visualized. Normal tricuspid valve structure. IVC dilated at 1.7 cm with physiologic collapse. A color flow and spectral Doppler study was performed and revealed: Trace aortic regurgitation. Mild to moderat mitral regurgitation. Mitral inflow velocities indicates normal LV diastolic function. Mild tricuspid regurgitation. Tricuspid systolic velocities suggests peak right ventricular systolic pressure of 26 mmHg.
--- NOTE | 2017-03-15 17:23 | Discharge Summary ---
Discharge Summary Hospital Course Date of Admission Mar 07, 2017 at 17:44 Date of Discharge Mar 13, 2017 at 19:10 Admitting Diagnosis pneumonia HPI Esther Murcia is a 76 year old female who was admitted on Mar 07, 2017 at 17: 44 for Pneumonia Hospital Course [id number] Discharge Discharge Disposition Patient was discharged to SNF/Subacute Facility(03) Discharge Diagnoses: Sharri Damon NP Mar 15, 2017 17:23
--- NOTE | 2017-03-15 17:23 | Discharge Summary ---
Discharge Summary Hospital Course Date of Admission Mar 07, 2017 at 17:44 Date of Discharge Mar 13, 2017 at 19:10 Admitting Diagnosis pneumonia HPI Esther Murcia is a 76 year old female who was admitted on Mar 07, 2017 at 17: 44 for Pneumonia Hospital Course [id number] Discharge Discharge Disposition Patient was discharged to SNF/Subacute Facility(03) Discharge Diagnoses: Sharri Damon NP Mar 15, 2017 17:23
--- NOTE | 2017-03-15 17:23 | Discharge Summary ---
Discharge Summary Hospital Course Date of Admission Mar 07, 2017 at 17:44 Date of Discharge Mar 13, 2017 at 19:10 Admitting Diagnosis pneumonia HPI Esther Murcia is a 76 year old female who was admitted on Mar 07, 2017 at 17: 44 for Pneumonia Hospital Course [id number] Discharge Discharge Disposition Patient was discharged to SNF/Subacute Facility(03) Discharge Diagnoses: Sharri Damon NP Mar 15, 2017 17:23
--- NOTE | 2017-03-15 23:30 | Discharge Summary 2 SIG ---
DATE OF ADMISSION: 03/07/2017 DATE OF DISCHARGE: 03/13/2017 CONSULTANTS: 1. Ronnie Martinez M.D. 2. Ernesto Fonseca M.D. 3. Gerald Morelos M.D. 4. Ayanna Salazar M.D. 5. Manny Lester M.D. 6. Michel Green M.D. BRIEF HOSPITAL COURSE: The patient is a 76-year-old female from long-term presented to ED for complaints of altered mental status and possible pneumonia. Per long-term report, the patient has not been eating well and there was failure to thrive. He was sent in to ED for further evaluation. Chest x-ray done showed atelectasis on the right, possible pneumonia. EKG was in normal sinus rhythm. He was started on IV vancomycin and cefepime empirically. Screening for influenza were negative. She underwent swallow evaluation and showed [id number] oropharyngeal dysphagia. She was planned for PEG tube placement. However, procedure was canceled, due to bradycardia. Dr. Matthews was then called in for a clearance. The patient has been off AV kierra-blocking agents. Echocardiogram done showed ejection fraction of 60% with [id number] mitral regurgitation, mild tricuspid regurgitation, and troponins were negative. 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 Negative for acute intracranial bleed or mass effect. She was worked up for evaluation and tumor markers were sent. Ultrasound of the abdomen did not show any evidence of malignancy. The patient was given cefepime and vancomycin for possible pneumonia. A repeat CXR showed increased left basilar opacity, probable aspiration pneumonia. On 03/13/2017, NG tube was placed in. Placement was confirmed by the [facility]. The patient was eventually discharged. Advised strict aspiration precaution to elevate HOB at all times. FINAL DIAGNOSES: 1. Pneumonia, suspect aspiration. 2. Sepsis. 3. High risk for aspiration. 4. High risk for dehydration. 5. Bradycardia. 6. Transient altered level of consciousness/acute encephalopathy. 7. Hypertension. 8. Dysphagia. 9. Failure to thrive. 10. Schizophrenia. 11. Agitation. Continue Seroquel and Remeron. DISPOSITION: The patient was discharged to [facility]. Advised strict aspiration precaution. Summer Gaines M.D. I have been assigned to dictate discharge summary on this account and I was not involved in the patient's management. Sharri Damon N.P. DR: CHAGO JOB#: [id number] CC: JOSÉ
--- NOTE | 2017-03-15 23:30 | Discharge Summary 2 SIG ---
DATE OF ADMISSION: 03/07/2017 DATE OF DISCHARGE: 03/13/2017 CONSULTANTS: 1. Ronnie Martinez M.D. 2. Ernesto Fonseca M.D. 3. Gerald Morelos M.D. 4. Ayanna Salazar M.D. 5. Manny Lester M.D. 6. Michel Green M.D. BRIEF HOSPITAL COURSE: The patient is a 76-year-old female from long term presented to ED for complaints of altered mental status and possible pneumonia. Per long term report, the patient has not been eating well and there was failure to thrive. He was sent in to ED for further evaluation. Chest x-ray done showed atelectasis on the right, possible pneumonia. EKG was in normal sinus rhythm. He was started on IV vancomycin and cefepime empirically. Screening for influenza were negative. She underwent swallow evaluation and showed [id number]-[id number] oropharyngeal dysphagia. She was planned for PEG tube placement. However, procedure was canceled, due to bradycardia. Dr. Matthews was then called in for a clearance. The patient has been off AV kierra-blocking agents. Echocardiogram done showed ejection fraction of 60% with [id number] mitral regurgitation, mild tricuspid regurgitation, and troponins were negative. 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 Negative for acute intracranial bleed or mass effect. She was worked up for evaluation and tumor markers were sent. Ultrasound of the abdomen did not show any evidence of malignancy. The patient was given cefepime and vancomycin for possible pneumonia. A repeat CXR showed increased left basilar opacity, probable aspiration pneumonia. On 03/13/2017, NG tube was placed in. Placement was confirmed by the [facility]. The patient was eventually discharged. Advised strict aspiration precaution to elevate HOB at all times. FINAL DIAGNOSES: 1. Pneumonia, suspect aspiration. 2. Sepsis. 3. High risk for aspiration. 4. High risk for dehydration. 5. Bradycardia. 6. Transient altered level of consciousness/acute encephalopathy. 7. Hypertension. 8. Dysphagia. 9. Failure to thrive. 10. Schizophrenia. 11. Agitation. Continue Seroquel and Remeron. DISPOSITION: The patient was discharged to [facility]. Advised strict aspiration precaution. Summer Gaines M.D. I have been assigned to dictate discharge summary on this account and I was not involved in the patient's management. Sharri Damon N.P. DR: CHAGO JOB#: [id number] CC: JOSÉ
--- NOTE | 2017-03-15 23:30 | Discharge Summary 2 SIG ---
DATE OF ADMISSION: 03/07/2017 DATE OF DISCHARGE: 03/13/2017 CONSULTANTS: 1. Ronnie Martniez M.D. 2. Ernesto Fonseca M.D. 3. Gerald Morelos M.D. 4. Ayanna Salazar M.D. 5. Manny Lester M.D. 6. Michel Green M.D. BRIEF HOSPITAL COURSE: The patient is a 76[facility] to ED for complaints of altered mental status and possible pneumonia. Per [facility] report, the patient has not been eating well and there was failure to thrive. He was sent in to ED for further evaluation. Chest x-ray done showed atelectasis on the right, possible pneumonia. EKG was in normal sinus rhythm. He was started on IV vancomycin and cefepime empirically. Screening for influenza were negative. She underwent swallow evaluation and showed [id number] oropharyngeal dysphagia. She was planned for PEG tube placement. However, procedure was canceled, due to bradycardia. Dr. Matthews was then called in for a clearance. The patient has been off AV kierra-blocking agents. Echocardiogram done showed ejection fraction of 60% with [id number] mitral regurgitation, mild tricuspid regurgitation, and troponins were negative. 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 Negative for acute intracranial bleed or mass effect. She was worked up for evaluation and tumor markers were sent. Ultrasound of the abdomen did not show any evidence of malignancy. The patient was given cefepime and vancomycin for possible pneumonia. A repeat CXR showed increased left basilar opacity, probable aspiration pneumonia. On 03/13/2017, NG tube was placed in. Placement was confirmed by the [facility]. The patient was eventually discharged. Advised strict aspiration precaution to elevate HOB at all times. FINAL DIAGNOSES: 1. Pneumonia, suspect aspiration. 2. Sepsis. 3. High risk for aspiration. 4. High risk for dehydration. 5. Bradycardia. 6. Transient altered level of consciousness/acute encephalopathy. 7. Hypertension. 8. Dysphagia. 9. Failure to thrive. 10. Schizophrenia. 11. Agitation. Continue Seroquel and Remeron. DISPOSITION: The patient was discharged to [facility]. Advised strict aspiration precaution. Summer Gaines M.D. I have been assigned to dictate discharge summary on this account and I was not involved in the patient's management. Sharri Damon N.P. DR: CHAGO JOB#: [id number] CC: JOSÉ
== END 2017-03-13 19:10 | DRG 871 ==
LOC: EDBD 16:33 → EMR 17:36 → 4E 17:44 → EDBEDREQ 18:10 → 4E 20:58 → 2E 03-11 14:12
DX: A41.9 Sepsis, unspecified organism (principal); J69.0 Pneumonitis due to inhalation of food and vomit; G93.40 Encephalopathy, unspecified; N39.0 Urinary tract infection, site not specified; F20.0 Paranoid schizophrenia; J98.11 Atelectasis; R00.1 Bradycardia, unspecified; R13.10 Dysphagia, unspecified; I10 Essential (primary) hypertension; F29 Unspecified psychosis not due to a substance or known physiological condition; I25.10 Atherosclerotic heart disease of native coronary artery without angina pectoris; I73.9 Peripheral vascular disease, unspecified; Z88.0 Allergy status to penicillin; E78.5 Hyperlipidemia, unspecified; Z87.891 Personal history of nicotine dependence; G24.01 Drug induced subacute dyskinesia; R62.7 Adult failure to thrive; Z86.73 Personal history of transient ischemic attack (TIA), and cerebral infarction without residual deficits; R45.1 Restlessness and agitation; Z53.09 Procedure and treatment not carried out because of other contraindication; Z89.511 Acquired absence of right leg below knee
CPT/HCPCS: 36415; 70450; 71010; 74000; 80048; 80053; 80202; 82105; 82550; 82553; 83690; 83880; 84439; 84443; 84484; 85025; 85610; 85730; 86300; 86304; 86710; 87040; 87081; 93005; 93306; 99285; J8499

== ENCOUNTER 2017-08-26 20:31 | Inpatient (IN) | payer MEDICARE, MEDICAID ==
[~2017-08-26] VITALS: Ht 160 cm; Wt 58.5 kg
[~2017-08-26 20:31] MED LIST changes: +AMLODIPINE BESY10 MG ORAL; +ASPIR 8181 MG ORAL; +ATORVASTATIN CA10 MG ORAL; +BENZTROPINE ME0.5 MG PO; +BISACODYL5 MG RECTAL; +DITROPAN XL5 MG ORAL; +DOCUSATE SODIU100 MG ORAL; +NAMENDA10 MG ORAL; +POTASSIUM CHLO20 ME2 ORAL; +PRO-STAT LIQUID30 ML ORAL; +REMERON15 MG ORAL; +RESTORIL15 MG ORAL; +SEROQUEL25 MG ORAL
[2017-08-26] MEDS ORDERED: Sodium Chloride 500ML 500 ML IV ONE (20:39)
[2017-08-26 20:45] VITALS: BP 105/65
[2017-08-26] MEDS ORDERED: VITAMIN C500 M1 ORAL (20:48)
[2017-08-26] MEDS ORDERED: MILK OF MA400 MG/51 ORAL (20:48)
[2017-08-26] MEDS ORDERED: OXYBUTYNIN CHLOR5 M1 ORAL (20:48)
[2017-08-26] MEDS ORDERED: ACETAMINOPHEN325 M1 ORAL (20:48)
[2017-08-26] MEDS ORDERED: REMERON15 MG ORAL (20:48)
[2017-08-26] MEDS ORDERED: BISACODYL5 MG ORAL (20:48)
[2017-08-26] MEDS ORDERED: PRO-STAT LIQUID30 ML ORAL (20:48)
[2017-08-26] MEDS ORDERED: SEROQUEL25 MG ORAL (20:48)
[2017-08-26] MEDS ORDERED: POTASSIUM40 MEQ/11 PO (20:48)
[2017-08-26] MEDS ORDERED: COGENTIN1 MG ORAL (20:48)
[2017-08-26] MEDS ORDERED: Haloperidol 5mg/ml Inj IM ONE (21:15)
[2017-08-26 21:40] LABS: ANION GAP 11 mmol/L (5-15); BLOOD UREA NITROGEN 18 mg/dL (7-18); CALCIUM 10.6 MG/DL (8.5-10.1); CARBON DIOXIDE 29 MMOL/L (21-32); CHLORIDE 104 MMOL/L (98-107); CREATININE 1.1 MG/DL (0.55-1.30); POTASSIUM 4.2 MMOL/L (3.5-5.1); SODIUM 143 MMOL/L (136-145)
[2017-08-26 21:41] LABS: BASOPHILS % (AUTO) 1.7 % (0.0-2.0); EOSINOPHILS % (AUTO) 2.4 % (0.0-3.0); HEMATOCRIT 44.1 % (37.0-47.0); HEMOGLOBIN 14.9 G/DL (12.0-16.0); LYMPHOCYTES % (AUTO) 41.9 % (20.0-45.0); MEAN CORPUSCULAR VOLUME 94 FL (80-99); MONOCYTES % (AUTO) 8.9 % (1.0-10.0); NEUTROPHILS % (AUTO) 45.1 % (45.0-75.0); PLATELET COUNT 304 K/UL (150-450); RED BLOOD COUNT 4.67 M/UL (4.20-5.40); RED CELL DISTRIBUTION WIDTH 12.5 % (11.6-14.8); WHITE BLOOD COUNT 11.6 K/UL (4.8-10.8)
[2017-08-26] MEDS ORDERED: LORazepam Inj 2mg/ml 1ml IV ONE ×2 (21:45→23:00)
[2017-08-26 21:52] LABS: ALANINE AMINOTRANSFERASE 24 U/L (12-78); ALBUMIN 4.2 G/DL (3.4-5.0); ALKALINE PHOSPHATASE 130 U/L (46-116); ASPARTATE AMINO TRANSFERASE 21 U/L (15-37); BILIRUBIN,TOTAL 0.3 MG/DL (0.2-1.0); CKMB 1.8 NG/ML (0.0-3.6); CREATINE KINASE 192 U/L (26-308)
--- NOTE | 2017-08-26 21:59 | Emergency Room Report ---
History of Present Illness General Chief Complaint: Abdominal Pain Source: Medical Record Present Illness HPI 77-year-old female presents ED for evaluation. Patient comes from [facility]. Nursing facility states that patient has had persistent abdominal pain for many weeks now. Patient has severe psychiatric history and is a poor historian. Unable to point to where the pain is but is in distress upon arrival. Denies chest pain. No fevers or chills. No nausea or vomiting. No other aggravating relieving factors. No other associated symptoms Allergies: Coded Allergies: PENICILLINS (Verified Allergy, Unknown, 07/30/08) Patient History Past Medical History: dementia, psych hx Past Surgical History: other - s/p R BKA Pertinent Family History: none Social History: Denies: smoking, alcohol use, drug use Last Menstrual Period: NA Now: No Immunizations: UTD Reviewed Nursing Documentation: PMH: Agreed; PSxH: Agreed Nursing Documentation-PMH Hx Cardiac Problems: Yes - bradycardia, acute embolism and thrombosis Hx Hypertension: Yes - pvd, rt bka Hx Cancer: No Hx Gastrointestinal Problems: Yes - abdominal pain, overactive bladder Hx Neurological Problems: Yes - psychosis,muscle weakness Review of Systems All Other Systems: limited Physical Exam Vital Signs Date Time Temp Pulse Resp B/P (MAP) Pulse Ox O2 Delivery O2 Flow Rate FiO2 08/26/17 20:31 97.8 102 18 128/85 98 Room Air 97.9 Sp02 EP Interpretation: reviewed, normal General Appearance: GCS 15, non-toxic, other - dementia Head: normocephalic Eyes: bilateral eye normal inspection, bilateral eye PERRL ENT: normal ENT inspection Neck: normal inspection Respiratory: chest non-tender, lungs clear, normal breath sounds, speaking full sentences Cardiovascular #1: regular rate, rhythm, no edema Gastrointestinal: normal bowel sounds, soft, non-distended, no guarding, no rebound, tenderness Rectal: deferred Genitourinary: normal inspection Musculoskeletal: normal inspection Neurologic: other - dementia Psychiatric: other - dementia Skin: normal inspection Lymphatic: normal inspection Medical Decision Making Diagnostic Impression: Primary Impression: Acute abdominal pain Additional Impression: Psychosis Qualified Codes: F29 - Unspecified psychosis not due to a substance or known physiological condition ER Course Hospital Course 77-year-old female presents ED for abdominal pain Differential diagnoses include: BPH, cystitis, pyelonephritis, kidney stone Clinical course Patient placed on stretcher. pvc monitor. After initial history and physical I ordered labs, IV fluids, CT scan EKG - NSR, no acute ischemic changes interpreted by me Labs - minimal leukocytosis, Hb/Hct stable. electrolytes ok CT abdomen and pelvis - signficiant stool noted, no acute process or obstruction identified Patient became agitated, disoriented. Extensive psychiatric history. Given Haldol and Ativan in ED Case discussed with Dr. Gaines and he agreed to accept the patient to his service for further care and support I feel this is a highly complex case requiring extensive working including EKG/ Rhythm strip, Xray/CT/US, Blood/urine lab work, repeat exams while in ED, and administration of strong opiates/narcotics for pain control, admission to hospital or close patient follow up. Diagnosis - acute abdominal pain, psychosis Patient admitted to floor in serious condition Labs Test 08/26/17 21:00 White Blood Count 11.6 K/UL (4.8-10.8) Red Blood Count 4.67 M/UL (4.20-5.40) Hemoglobin 14.9 G/DL (12.0-16.0) Hematocrit 44.1 % (37.0-47.0) Mean Corpuscular Volume 94 FL (80-99) Mean Corpuscular Hemoglobin 31.8 PG (27.0-31.0) Mean Corpuscular Hemoglobin Concent 33.7 G/DL (32.0-36.0) Red Cell Distribution Width 12.5 % (11.6-14.8) Platelet Count 304 K/UL (150-450) Mean Platelet Volume 5.5 FL (6.5-10.1) Neutrophils (%) (Auto) 45.1 % (45.0-75.0) Lymphocytes (%) (Auto) 41.9 % (20.0-45.0) Monocytes (%) (Auto) 8.9 % (1.0-10.0) Eosinophils (%) (Auto) 2.4 % (0.0-3.0) Basophils (%) (Auto) 1.7 % (0.0-2.0) Sodium Level 143 MMOL/L (136-145) Potassium Level 4.2 MMOL/L (3.5-5.1) Chloride Level 104 MMOL/L (98-107) Carbon Dioxide Level 29 MMOL/L (21-32) Anion Gap 11 mmol/L (5-15) Blood Urea Nitrogen 18 mg/dL (7-18) Creatinine 1.1 MG/DL (0.55-1.30) Estimat Glomerular Filtration Rate mL/min (>60) Glucose Level 111 MG/DL (74-106) Calcium Level 10.6 MG/DL (8.5-10.1) Total Bilirubin 0.3 MG/DL (0.2-1.0) Aspartate Amino Transf (AST/SGOT) 21 U/L (15-37) Alanine Aminotransferase (ALT/SGPT) 24 U/L (12-78) Alkaline Phosphatase 130 U/L (46-116) Total Creatine Kinase 192 U/L (26-308) Creatine Kinase MB 1.8 NG/ML (0.0-3.6) Creatine Kinase MB Relative Index 0.9 Troponin I 0.000 ng/mL (0.000-0.056) Total Protein 8.6 G/DL (6.4-8.2) Albumin 4.2 G/DL (3.4-5.0) Globulin 4.4 g/dL Albumin/Globulin Ratio 1.0 (1.0-2.7) Lipase 84 U/L (73-393) EKG Diagnostic Results Rate: normal Rhythm: NSR ST Segments: no acute changes ASA given to the pt in ED: No Rhythm Strip Diag. Results EP Interpretation: yes Rhythm: NSR, no PVC's, no ectopy CT/MRI/US Diagnostic Results CT/MRI/US Diagnostic Results : Imaging Test Ordered: CT A/P Impression Abundant stool in the ascending, transverse, and descending colon. No evidence for significant bowel loop dilation to suggest an obstructive process. No definite evidence for bowel related inflammatory changes. The appendix is questionably visualized in the right lower quadrant and is unremarkable. A vascular stent is seen in the left superficial femoral artery. The proximal aspect of the stent appears compressed and is likely obstructed. Fibroids are suspected in the uterus. Hernia in the right inguinal region which contains a portion of the bladder. No free intraperitoneal fluid or free intraperitoneal gas. Areas of atelectasis at the lung bases. Small nonspecific low-density lesion in the left lobe of the liver. Low-density lesions in the kidneys suggestive of cysts. The intra-abdominal organs are otherwise grossly unremarkable for a noncontrast CT. Degenerative changes of the thoracolumbar spine. Mild lumbar dextroscoliosis. Last Vital Signs Date Time Temp Pulse Resp B/P (MAP) Pulse Ox O2 Delivery O2 Flow Rate FiO2 08/26/17 20:31 97.8 102 18 128/85 98 Room Air 97.9 Status: improved Disposition: ADMITTED INPATIENT Condition: Serious Referrals: Summer Gaines MD (PCP) Vinay Hopkins MD Aug 26, 2017 21:59
[2017-08-26 22:48] LABS: APPEARANCE,URINE CLEAR; BILIRUBIN, URINE NEGATIVE (NEGATIVE); COLOR,URINE PALE YELLOW; GLUCOSE, URINE (UA) NEGATIVE (NEGATIVE); KETONES,URINE NEGATIVE (NEGATIVE); LEUKOCYTE ESTERASE ,URINE NEGATIVE (NEGATIVE); NITRITE,URINE NEGATIVE (NEGATIVE); PH,URINE 6.5 (4.5-8.0); PROTEIN,URINE NEGATIVE (NEGATIVE); UROBILINOGEN,URINE NORMAL MG/DL (0.0-1.0)
[2017-08-26 23:25] VITALS: BP 124/68
[2017-08-26 23:45] VITALS: BP 130/87
[2017-08-27] MEDS ORDERED: Milk of Magnesia 30ml Ud ORAL PRN
[2017-08-27] MEDS ORDERED: LORazepam Inj 2mg/ml 1ml IM STA (03:39)
[2017-08-27 04:00] VITALS: BP 117/71
[2017-08-27] MEDS ORDERED: mylanta PO (04:29)
[2017-08-27] MEDS ORDERED: POTASSIUM20 MEQ/15 PO (04:29)
[2017-08-27] MEDS ORDERED: DULCOLAX5 MG PO (04:31)
[2017-08-27] MEDS ORDERED: DULCOLAX10 MG RC (04:32)
[2017-08-27 08:00] VITALS: BP 129/77
[2017-08-27] MEDS: Docusate 100mg cap ORAL SCH ×2 (08:38→20:13)
[2017-08-27] MEDS: Bisacodyl EC 5mg tab ORAL SCH (08:38)
[2017-08-27] MEDS: Sennosides 8.6mg ORAL SCH (08:38)
[2017-08-27] MEDS: Heparin 5000 units/ml inj SUBQ SCH ×2 (08:43→20:19)
--- NOTE | 2017-08-27 09:01 | Diagnostic Imaging Report ---
Indication: Abdominal pain and distention Technique: Spiral acquisitions obtained through the abdomen and pelvis. No oral contrast utilized, per emergency room physician request No IV contrast utilized, for emergency room physician request.. Multiplanar reconstructions were generated. Total dose length product 662.42 mGycm. CTDIvol(s) 12.33 mGy. Dose reduction achieved using automated exposure control Comparison: None Findings: The appendix is normal. There is a moderate amount of retained stool. No evidence of diverticulosis or diverticulitis. No free or loculated intraperitoneal air or fluid. No small bowel distention. Distal esophagus, stomach, duodenum are unremarkable. There is a stent in the left superficial femoral artery. The proximal portion of this appears to be completely compressed, although no extrinsic abnormality is seen to be causing the compression. Patency is indeterminate in the absence of IV contrast, but this is not likely to be patent given the degree of compression. Surgical clips are also seen in the right groin. A stent is seen in the left common iliac artery, patency likewise indeterminate Lack of IV contrast limits assessment of the solid organs. The liver demonstrates a subcentimeter low-attenuation lesion in segment 2. The gallbladder, bile ducts, pancreas, spleen, adrenal are all unremarkable. The kidneys demonstrate bilateral cysts. No pelvic mass or adenopathy. Numerous calcifications are seen scattered throughout the uterus, consistent with old degenerated fibroids.. The included lung bases demonstrate atelectasis or consolidation on the right. There is a small mass, possibly with a central cavity, in the inferior left lung which measures 8 mm in diameter. There is also some scattered linear scarring at the left lung base. There is a mosaic perfusion pattern. The bones demonstrate lumbar scoliotic deformity, mild. There is degenerative lumbosacral spondylosis noted, mild. Impression: No acute abnormality Moderate retained colonic stool, nonspecific, correlate with any clinical history of constipation Left superficial femoral artery stent, appearing completely compressed, likely not patent Subcentimeter low-attenuation lesion in the left hepatic lobe, too small to characterize, most likely a benign simple cyst. No further follow-up necessary Other findings as noted, including degenerative uterine fibroids, postsurgical changes of the right groin, left common iliac stent, bilateral renal cysts, lumbar scoliosis, bilateral basilar pulmonary parenchymal atelectasis The above findings are in agreement with the [facility] preliminary report 8 mm nodule with possible central cavitation at the left lung base. This is nonspecific in appearance but could be inflammatory or neoplastic. Recommend follow-up CT in 6-12 months per Fleischner Society guidelines. This finding was not described in the preliminary report, was discussed by phone with Dr. Martinez at the time of interpretation The CT scanner at [facility] is accredited by the [employer] and the scans are performed using protocols designed to limit radiation exposure to as low as reasonably achievable to attain images of sufficient resolution adequate for diagnostic evaluation.
--- NOTE | 2017-08-27 09:05 | Diagnostic Imaging Report ---
Indication: Shortness of breath Technique: One view of the chest Comparison: 03/11/2017 Findings: Suboptimal inspiration again demonstrated. Atelectatic changes are seen at both lung bases. The heart is borderline enlarged. The aorta is elongated tortuous and calcified. Calcified granuloma is seen in the right lung apex. Previously demonstrated left basilar hazy opacity is no longer evident. There is no significant interim change otherwise Impression: Bilateral basilar atelectasis. No acute process otherwise Borderline cardiomegaly
--- NOTE | 2017-08-27 09:15 | Consultation ---
Consult Note Assessment/Plan [facility] DICT# [id number] JAHAIRA PADGETT M.D. Aug 27, 2017 09:15
[2017-08-27 09:34] LABS: EOSINOPHILS % (AUTO) 2.4 % (0.0-3.0); HEMATOCRIT 42.4 % (37.0-47.0); HEMOGLOBIN 14.9 G/DL (12.0-16.0); LYMPHOCYTES % (AUTO) 32.7 % (20.0-45.0); MEAN CORPUSCULAR VOLUME 95 FL (80-99); NEUTROPHILS % (AUTO) 56.8 % (45.0-75.0); PLATELET COUNT 196 K/UL (150-450); RED BLOOD COUNT 4.47 M/UL (4.20-5.40); RED CELL DISTRIBUTION WIDTH 12.4 % (11.6-14.8); WHITE BLOOD COUNT 7.9 K/UL (4.8-10.8)
[2017-08-27 10:03] LABS: ALANINE AMINOTRANSFERASE 26 U/L (12-78); ALBUMIN 3.9 G/DL (3.4-5.0); ALBUMIN/GLOBULIN RATIO 0.9 (1.0-2.7); ALKALINE PHOSPHATASE 119 U/L (46-116); ANION GAP 9 mmol/L (5-15); ASPARTATE AMINO TRANSFERASE 34 U/L (15-37); BILIRUBIN,TOTAL 0.4 MG/DL (0.2-1.0); BLOOD UREA NITROGEN 11 mg/dL (7-18); CALCIUM 9.6 MG/DL (8.5-10.1); CARBON DIOXIDE 26 MMOL/L (21-32); CHLORIDE 106 MMOL/L (98-107); CREATININE 0.9 MG/DL (0.55-1.30); POTASSIUM 4.1 MMOL/L (3.5-5.1); SODIUM 141 MMOL/L (136-145)
[2017-08-27] MEDS ORDERED: LORazepam Inj 2mg/ml 1ml IV ONE (10:30)
[2017-08-27 12:06] VITALS: BP 110/70
--- NOTE | 2017-08-27 14:53 | GI Initial Consult Note ---
Kaylee Mohr N.PTraci 08/27/17 1453: History of Present Illness General Date patient seen: Aug 27, 2017 Time patient seen: 14:51 Reason for Hospitalization: Abdominal Pain Referring physician: ROSSI RETANA Reason for Consultation: ABDOMINAL PAIN Present Illness HPI 77-year-old female presents ED for evaluation. Patient comes from [facility]. Nursing facility states that patient has had persistent abdominal pain for many weeks now. Patient has severe psychiatric history and is a poor historian. Unable to point to where the pain is but is in distress upon arrival. Denies chest pain. No fevers or chills. No nausea or vomiting. No other aggravating relieving factors. No other associated symptoms GI consulted for abdominal pain. ROS limited, patient agitated and is poor historial. D/w with RN has pulled out IVs, unable to communicate with sitter at bedside. All information obtained from medical records. Labs reviewed. CT AP reviewed shown to have abundant stool in multiple parts of the colon. Unknown history of endoscopy / colonoscopy. Home Meds Reported Medications Bisacodyl (DULCOLAX) 10 Mg Supp.rect, 10 MG RC DAILY PRN for Constipation, SUPP 08/27/17 Bisacodyl (DULCOLAX) 5 Mg Tablet.dr, 10 MG PO DAILY, TAB 08/27/17 [mylanta] No Conflict Check, 30 ML PO EVERY 4 HOURS PRN for To Patient Comfort 08/27/17 Potassium Chloride (Potassium Chloride) 20 Meq/15 Ml Liquid, 20 MEQ PO DAILY, ML 08/27/17 Ascorbic Acid* (VITAMIN C*) 500 Mg Tablet, 500 MG ORAL DAILY, #30 TAB 0 Refills 08/26/17 Acetaminophen* (ACETAMINOPHEN 325MG TABLET*) 325 Mg Tablet, 650 MG ORAL Q4H PRN for Fever/Headache/Mild Pain, TAB 08/26/17 Acetaminophen* (ACETAMINOPHEN 325MG TABLET*) 325 Mg Tablet, 650 MG ORAL Q4H PRN for For Pain, TAB 08/26/17 Quetiapine Fumarate* (SEROQUEL*) 25 Mg Tablet, 25 MG ORAL DAILY, TAB 08/26/17 Mirtazapine* (REMERON*) 15 Mg Tablet, 15 MG ORAL BEDTIME, TAB 08/26/17 Amino Acids/Protein Hydrolys (PRO-STAT LIQUID) 30 Ml Liquid.pkt, 30 ML ORAL TWICE A DAY, ML 08/26/17 Oxybutynin Chloride (OXYBUTYNIN CHLORIDE) 5 Mg Tablet, 5 MG ORAL BID, #30 TAB 0 Refills 08/26/17 Magnesium Hydroxide* (MILK OF MAGNESIA*) 400 Mg/5 Ml Oral.susp, 30 ML ORAL DAILY PRN for Constipation, ML 08/26/17 Benztropine Mesylate (Cogentin 1mg*) 1 Mg Tablet, 1 MG ORAL DAILY, TAB 08/26/17 Memantine Hcl* (NAMENDA*) 10 Mg Tablet, 10 MG ORAL DAILY, TAB 03/07/17 Atorvastatin Calcium* (LIPITOR*) 10 Mg Tablet, 5 MG ORAL BEDTIME, TAB 03/07/17 Docusate Sodium* (DOCUSATE SODIUM*) 100 Mg Capsule, 100 MG ORAL TWICE A DAY, CAP 03/07/17 Aspirin* (ASPIR 81*) 81 Mg Tablet.dr, 81 MG ORAL DAILY, TAB 03/07/17 Amlodipine Besylate* (AMLODIPINE BESYLATE*) 10 Mg Tablet, 10 MG ORAL DAILY, TAB 03/07/17 Enalapril Maleate* (ENALAPRIL MALEATE*) 2.5 Mg Tablet, 2.5 MG ORAL DAILY, TAB 06/02/13 Furosemide* (LASIX*) 20 Mg Tablet, 20 MG ORAL DAILY, TAB 06/02/13 Discontinued Reported Medications Potassium Chloride (POTASSIUM CHLORIDE) 40 Meq/15 Ml Liquid, 20 MEQ PO, ML 08/26/17 Magnesium Hydroxide* (MILK OF MAGNESIA*) 400 Mg/5 Ml Oral.susp, 30 ML ORAL DAILY , ML 08/26/17 Bisacodyl* (DULCOLAX*) 5 Mg Tablet.dr, 10 MG ORAL DAILY, #10 TAB 0 Refills 08/26/17 Quetiapine Fumarate* (SEROQUEL*) 25 Mg Tablet, 25 MG ORAL DAILY, TAB 03/07/17 Temazepam* (RESTORIL*) 15 Mg Capsule, 15 MG ORAL BEDTIME PRN for Insomnia, CAP 03/07/17 Mirtazapine* (REMERON*) 15 Mg Tablet, 15 MG ORAL BEDTIME, TAB 03/07/17 Amino Acids/Protein Hydrolys (PRO-STAT LIQUID) 30 Ml Liquid.pkt, 30 ML ORAL TWICE A DAY, ML 03/07/17 Potassium Chloride (POTASSIUM CHLORIDE) 20 Meq Packet, 20 MEQ ORAL DAILY, #30 PKT 0 Refills 03/07/17 Bisacodyl* (DULCOLAX*) 5 Mg Tablet.dr, 10 MG RECTAL DAILY, #10 TAB 0 Refills 03/07/17 Oxybutynin Chloride (DITROPAN XL) 5 Mg Tab.er.24, 5 MG ORAL DAILY, TAB 03/07/17 Benztropine Mesylate* (COGENTIN*) 0.5 Mg Tablet, 1 MG PO DAILY, TAB 03/07/17 Oxybutynin Chloride (OXYBUTYNIN CHLORIDE ER) 5 Mg Tab.er.24, 5 MG PO DAILY, TAB 06/02/13 Paliperidone (INVEGA) 6 Mg Tab.er.24, 6 MG PO BEDTIME, TAB 06/02/13 Zolpidem Tartrate* (ZOLPIDEM TARTRATE*) 10 Mg Tablet, 10 MG ORAL BEDTIME PRN for Insomnia, TAB 0 Refills 06/02/13 Amlodipine Besylate* (AMLODIPINE BESYLATE*) 5 Mg Tablet, 5 MG ORAL DAILY, TAB 06/02/13 Simvastatin (ZOCOR) 10 Mg Tablet, 10 MG ORAL BEDTIME, TAB 06/02/13 Hydrocodone/Acetaminophen 5-325* (HYDROCODONE/ACETAMINOPHEN 5-325*) 1 Each Tablet, 1 TAB ORAL Q4H PRN for For Pain, #30 TAB 0 Refills 06/02/13 Quetiapine Fumarate* (SEROQUEL*) 200 Mg Tablet, 200 MG ORAL BEDTIME, TAB 06/02/13 Med list reviewed/reconciled: Yes Allergies: Coded Allergies: PENICILLINS (Verified Allergy, Unknown, 07/30/08) Patient History Limited by: medical condition History Provided By: Medical Record PMH Narrative Past Medical History: dementia, psych hx Past Surgical History: other - s/p R BKA Pertinent Family History: none Social History: Denies: smoking, alcohol use, drug use Last Menstrual Period: NA Now: No Immunizations: UTD Reviewed Nursing Documentation: PMH: Agreed; PSxH: Agreed Nursing Documentation-PMH Hx Cardiac Problems: Yes - bradycardia, acute embolism and thrombosis Hx Hypertension: Yes - pvd, rt bka Hx Cancer: No Hx Gastrointestinal Problems: Yes - abdominal pain, overactive bladder Hx Neurological Problems: Yes - psychosis,muscle weakness Review of Systems All Other Systems: limited Physical Exam Vital Signs Date Time Temp Pulse Resp B/P (MAP) Pulse Ox O2 Delivery O2 Flow Rate FiO2 08/26/17 20:31 97.8 102 18 128/85 98 Room Air 97.9 Sp02 EP Interpretation: reviewed, normal Labs Laboratory Tests Test 08/26/17 21:00 08/26/17 22:35 08/27/17 09:20 08/27/17 09:30 White Blood Count 11.6 K/UL (4.8-10.8) H 7.9 K/UL (4.8-10.8) Red Blood Count 4.67 M/UL (4.20-5.40) 4.47 M/UL (4.20-5.40) Hemoglobin 14.9 G/DL (12.0-16.0) 14.9 G/DL (12.0-16.0) Hematocrit 44.1 % (37.0-47.0) 42.4 % (37.0-47.0) Mean Corpuscular Volume 94 FL (80-99) 95 FL (80-99) Mean Corpuscular Hemoglobin 31.8 PG (27.0-31.0) H 33.4 PG (27.0-31.0) H Mean Corpuscular Hemoglobin Concent 33.7 G/DL (32.0-36.0) 35.2 G/DL (32.0-36.0) Red Cell Distribution Width 12.5 % (11.6-14.8) 12.4 % (11.6-14.8) Platelet Count 304 K/UL (150-450) 196 K/UL (150-450) Mean Platelet Volume 5.5 FL (6.5-10.1) L 6.5 FL (6.5-10.1) Neutrophils (%) (Auto) 45.1 % (45.0-75.0) 56.8 % (45.0-75.0) Lymphocytes (%) (Auto) 41.9 % (20.0-45.0) 32.7 % (20.0-45.0) Monocytes (%) (Auto) 8.9 % (1.0-10.0) 7.0 % (1.0-10.0) Eosinophils (%) (Auto) 2.4 % (0.0-3.0) 2.4 % (0.0-3.0) Basophils (%) (Auto) 1.7 % (0.0-2.0) 1.0 % (0.0-2.0) Sodium Level 143 MMOL/L (136-145) 141 MMOL/L (136-145) Potassium Level 4.2 MMOL/L (3.5-5.1) 4.1 MMOL/L (3.5-5.1) Chloride Level 104 MMOL/L (98-107) 106 MMOL/L (98-107) Carbon Dioxide Level 29 MMOL/L (21-32) 26 MMOL/L (21-32) Anion Gap 11 mmol/L (5-15) 9 mmol/L (5-15) Blood Urea Nitrogen 18 mg/dL (7-18) 11 mg/dL (7-18) Creatinine 1.1 MG/DL (0.55-1.30) 0.9 MG/DL (0.55-1.30) Estimat Glomerular Filtration Rate mL/min (>60) mL/min (>60) Glucose Level 111 MG/DL (74-106) H 85 MG/DL (74-106) Calcium Level 10.6 MG/DL (8.5-10.1) H 9.6 MG/DL (8.5-10.1) Total Bilirubin 0.3 MG/DL (0.2-1.0) 0.4 MG/DL (0.2-1.0) Aspartate Amino Transf (AST/SGOT) 21 U/L (15-37) 34 U/L (15-37) Alanine Aminotransferase (ALT/SGPT) 24 U/L (12-78) 26 U/L (12-78) Alkaline Phosphatase 130 U/L (46-116) H 119 U/L (46-116) H Total Creatine Kinase 192 U/L (26-308) Creatine Kinase MB 1.8 NG/ML (0.0-3.6) Creatine Kinase MB Relative Index 0.9 Troponin I 0.000 ng/mL (0.000-0.056) Total Protein 8.6 G/DL (6.4-8.2) H 8.3 G/DL (6.4-8.2) H Albumin 4.2 G/DL (3.4-5.0) 3.9 G/DL (3.4-5.0) Globulin 4.4 g/dL 4.4 g/dL Albumin/Globulin Ratio 1.0 (1.0-2.7) 0.9 (1.0-2.7) L Lipase 84 U/L (73-393) Urine Color Pale yellow Urine Appearance Clear Urine pH 6.5 (4.5-8.0) Urine Specific [place] 1.010 (1.005-1.035) Urine Protein Negative (NEGATIVE) Urine Glucose (UA) Negative (NEGATIVE) Urine Ketones Negative (NEGATIVE) Urine Occult Blood 1+ (NEGATIVE) H Urine Nitrite Negative (NEGATIVE) Urine Bilirubin Negative (NEGATIVE) Urine Urobilinogen Normal MG/DL (0.0-1.0) Urine Leukocyte Esterase Negative (NEGATIVE) Urine RBC 2-4 /HPF (0 - 2) H Urine WBC 0-2 /HPF (0 - 2) Urine Squamous Epithelial Cells Few /LPF (NONE/OCC) Urine Bacteria Few /HPF (NONE) C-Reactive Protein, Quantitative 2.0 mg/dL (0.00-0.90) H Histoplasma Antigen Pending General Appearance: well appearing, no apparent distress, alert Head: normocephalic EENT: PERRL/EOMI, normal ENT inspection Neck: supple Respiratory: normal breath sounds, no respiratory distress Cardiovascular: normal rate Gastrointestinal: normal inspection, non tender, soft, normal bowel sounds, non -distended Rectal: deferred Genitourinary: no CVA tenderness Musculoskeletal: normal inspection, back normal Neurologic: normal inspection, alert, oriented x3, responsive Psychiatric: normal inspection, judgement/insight normal, memory normal Skin: normal inspection, normal color, no rash, warm/dry, palpation normal, well hydrated Lymphatic: normal inspection, no adenopathy Current Medications Current Medications Medications (Trade) Dose Ordered Sig/Kvng Route PRN Reason Start Time Stop Time Status Last Admin Dose Admin Acetaminophen (Tylenol) 650 mg Q4H PRN ORAL Mild Pain/Temp > 100.5 08/27/17 00:00 09/26/17 00:00 Bisacodyl (Dulcolax) 10 mg DAILY ORAL 08/27/17 09:00 09/26/17 08:59 08/27/17 08:38 Dextrose (Dextrose 50%) 25 ml STAT PRN IV Hypoglycemia 08/27/17 00:00 09/26/17 00:00 Dextrose (Dextrose 50%) 50 ml STAT PRN IV Hypoglycemia 08/27/17 00:00 09/26/17 00:00 Docusate Sodium (Colace) 100 mg EVERY 12 HOURS ORAL 08/27/17 09:00 09/26/17 08:59 08/27/17 08:38 Haloperidol Lactate (Haldol) 5 mg Q6H PRN IM Agitation 08/27/17 14:00 09/26/17 13:59 Heparin Sodium (Porcine) (Heparin 5000 units/ml) 5,000 units EVERY 12 HOURS SUBQ 08/27/17 09:00 09/26/17 08:59 08/27/17 08:43 Magnesium Hydroxide (Mom) 30 ml EVERY 4 HOURS PRN ORAL Constipation 08/27/17 00:00 09/26/17 00:00 Ondansetron HCl (Zofran) 4 mg Q6H PRN IVP Nausea & Vomiting 08/27/17 00:00 09/26/17 00:00 Sennosides (Senokot) 1 tab DAILY ORAL 08/27/17 09:00 09/26/17 08:59 08/27/17 08:38 Sodium Chloride 1,000 ml @ 50 mls/hr Q20H IV 08/27/17 00:57 09/26/17 00:56 08/27/17 00:37 GI: Plan Problems: (1) Constipation (2) Psychosis (3) Dehydration (4) Altered mental status (5) Acute abdominal pain Plan CT AP reviewed >> Moderate retained colonic stool, nonspecific, correlate with any clinical history of constipation. symptomatic treatment / supportive care ok to advance diet, puree >> fu ST evaluation fu psychiatric recs start bowel regime >> colace + miralax ppi IV/PO hydration prn transfusions fu labs Discussed with Dr. Mueller. Thank you for this patient referral, we will follow. STEVE MUELLER 08/30/17 1153: History of Present Illness General Reason for Hospitalization: Abdominal Pain Present Illness Home Meds Reported Medications Bisacodyl (DULCOLAX) 10 Mg Supp.rect, 10 MG RC DAILY PRN for Constipation, SUPP 08/27/17 Bisacodyl (DULCOLAX) 5 Mg Tablet.dr, 10 MG PO DAILY, TAB 08/27/17 [mylanta] No Conflict Check, 30 ML PO EVERY 4 HOURS PRN for To Patient Comfort 08/27/17 Potassium Chloride (Potassium Chloride) 20 Meq/15 Ml Liquid, 20 MEQ PO DAILY, ML 08/27/17 Ascorbic Acid* (VITAMIN C*) 500 Mg Tablet, 500 MG ORAL DAILY, #30 TAB 0 Refills 08/26/17 Acetaminophen* (ACETAMINOPHEN 325MG TABLET*) 325 Mg Tablet, 650 MG ORAL Q4H PRN for Fever/Headache/Mild Pain, TAB 08/26/17 Acetaminophen* (ACETAMINOPHEN 325MG TABLET*) 325 Mg Tablet, 650 MG ORAL Q4H PRN for For Pain, TAB 08/26/17 Quetiapine Fumarate* (SEROQUEL*) 25 Mg Tablet, 25 MG ORAL DAILY, TAB 08/26/17 Mirtazapine* (REMERON*) 15 Mg Tablet, 15 MG ORAL BEDTIME, TAB 08/26/17 Amino Acids/Protein Hydrolys (PRO-STAT LIQUID) 30 Ml Liquid.pkt, 30 ML ORAL TWICE A DAY, ML 08/26/17 Oxybutynin Chloride (OXYBUTYNIN CHLORIDE) 5 Mg Tablet, 5 MG ORAL BID, #30 TAB 0 Refills 08/26/17 Magnesium Hydroxide* (MILK OF MAGNESIA*) 400 Mg/5 Ml Oral.susp, 30 ML ORAL DAILY PRN for Constipation, ML 08/26/17 Benztropine Mesylate (Cogentin 1mg*) 1 Mg Tablet, 1 MG ORAL DAILY, TAB 08/26/17 Memantine Hcl* (NAMENDA*) 10 Mg Tablet, 10 MG ORAL DAILY, TAB 03/07/17 Atorvastatin Calcium* (LIPITOR*) 10 Mg Tablet, 5 MG ORAL BEDTIME, TAB 03/07/17 Docusate Sodium* (DOCUSATE SODIUM*) 100 Mg Capsule, 100 MG ORAL TWICE A DAY, CAP 03/07/17 Aspirin* (ASPIR 81*) 81 Mg Tablet.dr, 81 MG ORAL DAILY, TAB 03/07/17 Amlodipine Besylate* (AMLODIPINE BESYLATE*) 10 Mg Tablet, 10 MG ORAL DAILY, TAB 03/07/17 Enalapril Maleate* (ENALAPRIL MALEATE*) 2.5 Mg Tablet, 2.5 MG ORAL DAILY, TAB 06/02/13 Furosemide* (LASIX*) 20 Mg Tablet, 20 MG ORAL DAILY, TAB 06/02/13 Discontinued Reported Medications Potassium Chloride (POTASSIUM CHLORIDE) 40 Meq/15 Ml Liquid, 20 MEQ PO, ML 08/26/17 Magnesium Hydroxide* (MILK OF MAGNESIA*) 400 Mg/5 Ml Oral.susp, 30 ML ORAL DAILY , ML 08/26/17 Bisacodyl* (DULCOLAX*) 5 Mg Tablet.dr, 10 MG ORAL DAILY, #10 TAB 0 Refills 08/26/17 Quetiapine Fumarate* (SEROQUEL*) 25 Mg Tablet, 25 MG ORAL DAILY, TAB 03/07/17 Temazepam* (RESTORIL*) 15 Mg Capsule, 15 MG ORAL BEDTIME PRN for Insomnia, CAP 03/07/17 Mirtazapine* (REMERON*) 15 Mg Tablet, 15 MG ORAL BEDTIME, TAB 03/07/17 Amino Acids/Protein Hydrolys (PRO-STAT LIQUID) 30 Ml Liquid.pkt, 30 ML ORAL TWICE A DAY, ML 03/07/17 Potassium Chloride (POTASSIUM CHLORIDE) 20 Meq Packet, 20 MEQ ORAL DAILY, #30 PKT 0 Refills 03/07/17 Bisacodyl* (DULCOLAX*) 5 Mg Tablet.dr, 10 MG RECTAL DAILY, #10 TAB 0 Refills 03/07/17 Oxybutynin Chloride (DITROPAN XL) 5 Mg Tab.er.24, 5 MG ORAL DAILY, TAB 03/07/17 Benztropine Mesylate* (COGENTIN*) 0.5 Mg Tablet, 1 MG PO DAILY, TAB 03/07/17 Oxybutynin Chloride (OXYBUTYNIN CHLORIDE ER) 5 Mg Tab.er.24, 5 MG PO DAILY, TAB 06/02/13 Paliperidone (INVEGA) 6 Mg Tab.er.24, 6 MG PO BEDTIME, TAB 06/02/13 Zolpidem Tartrate* (ZOLPIDEM TARTRATE*) 10 Mg Tablet, 10 MG ORAL BEDTIME PRN for Insomnia, TAB 0 Refills 06/02/13 Amlodipine Besylate* (AMLODIPINE BESYLATE*) 5 Mg Tablet, 5 MG ORAL DAILY, TAB 06/02/13 Simvastatin (ZOCOR) 10 Mg Tablet, 10 MG ORAL BEDTIME, TAB 1/21/14 Hydrocodone/Acetaminophen 5-325* (HYDROCODONE/ACETAMINOPHEN 5-325*) 1 Each Tablet, 1 TAB ORAL Q4H PRN for For Pain, #30 TAB 0 Refills 06/02/13 Quetiapine Fumarate* (SEROQUEL*) 200 Mg Tablet, 200 MG ORAL BEDTIME, TAB 06/02/13 Allergies: Coded Allergies: PENICILLINS (Verified Allergy, Unknown, 07/30/08) GI: Plan Plan The patient was seen and examined at bedside and all new and available data was reviewed in the patients chart. I agree with the above findings, impression and plan. (Patient seen earlier today. Signature stamp does not reflect patient encounter time.). - MD F[facility] Emiliano N.Quang Aug 27, 2017 14:53 STEVE MUELLER Aug 30, 2017 11:53
--- NOTE | 2017-08-27 14:54 | Cardiology Report ---
APPROVED REPORT EKG Measurement Heart [id number] Normal sinus rhythm Normal ECG
[2017-08-27 16:03] VITALS: BP 115/72
[2017-08-27] MEDS: Haloperidol 5mg/ml Inj IM PRN (16:34)
--- NOTE | 2017-08-27 17:30 | Consultation ---
DATE OF CONSULTATION: 08/27/2017 PULMONARY CONSULTATION CONSULTING PHYSICIAN: Gabriel Hassan M.D. REFERRING PHYSICIAN: Summer Gaines M.D. REASON FOR CONSULTATION: Cavitary nodule. HISTORY OF PRESENT ILLNESS: The patient is a 77-year-old female, correction resident with a history of schizophrenia, hypertension, hyperlipidemia, and congestive heart failure, who presented overnight to the emergency department with abdominal pain. She had vague complaints and per report had been going on for several weeks. The patient is unable to quantify or qualify the pain herself. Nonetheless, she had no respiratory complaints, but is a nonsmoker. CT of the abdomen and pelvis was done and showed a 0.8 cm a possible cavitary lesion at the left base. I have reviewed the limited images myself and there appears to be either bronchiectatic airway or a 0.8 cm thin abnormal walled cavity. In terms of abdominal findings, there was significant stool and the etiology of the abdominal pain may be constipation. Nonetheless, she has been admitted for further evaluation and management. Chest x-ray showed some bibasilar atelectasis. PAST MEDICAL HISTORY: 1. Hypertension. 2. Hyperlipidemia. 3. Schizophrenia. 4. retirement resident. 5. Current daily smoker. 6. CAD. 7. CHF. ALLERGIES: Penicillin. MEDICATIONS: Prior to admission medications reviewed. Current medications reviewed. SOCIAL HISTORY: retirement resident. Extensive history of tobacco use. FAMILY HISTORY: Noncontributory. REVIEW OF SYSTEMS: Negative other than the history of present illness. PHYSICAL EXAMINATION: VITAL SIGNS: Temperature 97, pulse 89, blood pressure 117/71, and respiratory rate 20. GENERAL: The patient is a well-developed, well-nourished female, in no acute distress. Awake, alert, and oriented x3, easily disorientable. HEENT: Normocephalic and atraumatic. Oropharynx is clear. Moist mucous membranes. NECK: Supple without lymphadenopathy or JVD. CHEST: Clear. HEART: Regular. ABDOMEN: Benign. ANCILLARY DATA: White count 11.6, hemoglobin 14.9, and platelet count 304. Sodium 143, potassium 4.2, chloride 104, bicarbonate 29, BUN 18, creatinine 1.1, glucose 108, and calcium 10.6. Total bilirubin 0.3. AST 21, ALT 24, and alkaline phosphatase 130. CK 192. Troponin negative. Total protein 8.6. Albumin 4.2. Globulin 4.4. Lipase 84. Urinalysis, 1+ occult blood, 2 to 4 red cells. Chest x-ray shows some bibasilar atelectasis. CT abdomen and pelvis shows a 0.8 cm cavitary lesion at the left base and stool impaction throughout the colon. There is a left superficial femoral artery stent, subcentimeter low attenuation left hepatic lobe lesion, degenerative fibroids, postsurgical changes of the right groin, left common iliac stent, and lumbar scoliosis. ASSESSMENT: The patient is a 77-year-old female with a history of schizophrenia, hypertension, hyperlipidemia, coronary artery disease, congestive heart failure, peripheral arterial disease, smoker, presenting with abdominal pain, noted to have a 0.8 cm lower lobe nodule. We will obtain a full CT scan of the chest to evaluate this further and send up atypical and infectious serology, but with respect to differential, it would include neoplastic processes, which I feel probably less likely versus atypical infectious or inflammatory processes. PROBLEM LIST: 1. A 0.8 cm left lower lobe cavitary nodule noted on CT scan of the abdomen and pelvis. 2. Abdominal pain. 3. Tobacco use. 4. Schizophrenia. 5. CAD. 6. CHF. 7. Hypertension. 8. Hyperlipidemia. 9. PAD. TREATMENT PLAN: 1. Optimize pulmonary hygiene/mobilize as tolerated. 2. Followup dedicated CT scan of the chest. 3. Follow up atypical inflammatory serologies. 4. Swallow evaluation. 5. Aspiration precautions. 6. Pain control, supportive care, bowel regimen. 7. Consider GI evaluation. 8. DVT prophylaxis, heparin subcutaneous. Gabriel Hassan M.D. DR: TELMA JOB#: [id number] CC:
--- NOTE | 2017-08-27 19:00 | Consultation ---
DATE OF CONSULTATION: 08/27/2017 INFECTIOUS DISEASE CONSULTATION CONSULTING PHYSICIAN: Yevgeniy Urias M.D. PRIMARY ATTENDING PHYSICIAN: Summer Gaines M.D. REASON FOR CONSULT: Pulmonary nodule and left cavitary lesion. HISTORY OF PRESENT ILLNESS: This is a 77-year-old, female, who is a half-way resident, admitted yesterday complaining of abdominal pain for a couple of days. The patient had a CT scan of the abdomen and pelvis that showed a pulmonary nodule with cavitation. The patient is afebrile and poor historian because of psychiatric problems. PAST MEDICAL HISTORY: Dementia with psychosis; has peripheral vascular disease, status post right below-knee amputation, had bypass in the left lower extremity; has hypertension; coronary artery disease; scoliosis; and tardive dyskinesia. MEDICATIONS: Getting heparin, Colace, Benadryl, Bisacodyl, sodium chloride, Zofran, and Tylenol. ALLERGIES: Allergic to penicillin. SOCIAL HISTORY: alf resident. According to half-way, was a smoker. Has a granddaughter, who is the next of kin. VACCINATION HISTORY: The patient got pneumonia vaccine in November 2014 and got flu shot in February of last year. The patient in March of last year had PPD. PHYSICAL EXAMINATION: VITAL SIGNS: Temperature 97.7, pulse 100, and blood pressure 110/70. GENERAL APPEARANCE: No acute distress. HEAD AND NECK: [place] conjunctivae. HEART: Normal rate. Regular. LUNGS: Clear. ABDOMEN: Soft. EXTREMITIES: He has a right below-knee amputation. A scar of the vascular surgery in left leg. LABORATORY DATA: WBC 7.9, coming down from 11.6 at the time of admission; hemoglobin 14.9; hematocrit 43.4; and platelets 196,000. Sodium 141, potassium 4.1, chloride 106, bicarbonate 26, BUN 7, creatinine 0.9, and glucose 85. CRP is elevated too. CT scan of the abdomen and pelvis showed no acute abnormality. Moderate stool in the colon. Lungs showed atelectasis or consolidation. There is a small mass probably in the central cavity in the inferior left lung, which measures 8 mm in diameter. The patient has scoliosis. IMPRESSION: 1. Pulmonary nodule with central cavitation. We will try to rule out tuberculosis & fungal infection. 2. The patient has abdominal pain, likely secondary to fecal impaction. 3. Has dementia with psychosis. 4. Peripheral vascular disease. 5. Hypertension. 6. Coronary artery disease. 7. Tardive dyskinesia 8. Penicillin allergy. RECOMMENDATION: We will follow coccidioides antibody. We will follow cryptococcal antigen. We will follow histoplasma antigen. We will follow T-SPOT test for TB. At the end of my exam, I thank Dr. Gaines for involving me in the care of this patient. Yevgeniy Urias M.D. DR: ARNULFO JOB#: [id number] CC: JOSÉ
[2017-08-27 20:00] VITALS: BP 130/79
[2017-08-27] MEDS: Miralax 17gm pkt ORAL SCH (20:13)
[2017-08-28] VITALS: BP 124/77
--- NOTE | 2017-08-28 00:15 | History and Physical Report ---
DATE OF ADMISSION: 08/26/2017 HISTORY OF PRESENT ILLNESS: The patient is a poor historian, has paranoid schizophrenia, history of abdominal pain. The patient has a history of constipation. Denies nausea, vomiting, or diarrhea. Denies shortness of breath. Denies cough. Denies orthopnea. The patient admitted for fecal impaction, rule out UTI, and the patient also has a cavitary lesion on chest x-ray. History of , paranoid schizophrenia, history of dysphagia, history of multiple strokes, psychosis, history of constipation, hyperlipidemia, hypertension, advanced dementia, mood disorder, and urinary incontinence. PAST SURGICAL HISTORY: The patient had lower extremity amputation, history of PEG. MEDICATIONS: Amlodipine, vitamin C, aspirin, Lipitor, Cogentin, furosemide, enalapril, Namenda, potassium, and Seroquel. ALLERGIES: To penicillin. SOCIAL HISTORY: The patient does have history of smoking. Denies illicit drugs or alcohol abuse. Lives in a residential. FAMILY HISTORY: Noncontributory. REVIEW OF SYSTEMS: HEENT: Denies headaches. RESPIRATORY: Denies shortness of breath. Denies cough. CARDIOVASCULAR: Denies chest pain. GASTROINTESTINAL: Reports abdominal pain for a couple of days and history of constipation. EXTREMITIES: She does have mild chronic pain which really is mild and chronic. CENTRAL NERVOUS SYSTEM: Denies change in vision or speech pattern. PHYSICAL EXAMINATION: VITAL SIGNS: Temperature is 97.7 degrees, pulse is 100, and blood pressure is 110/70. HEENT: PERRLA. NECK: Supple. No lymphadenopathy. CHEST: Clear to auscultation. GASTROINTESTINAL: Soft, distended, however, nontender. Positive bowel sounds. EXTREMITIES: Lower extremity amputation. NEUROLOGIC: Oriented x1. LABORATORY DATA: WBC of 11.6, hemoglobin 13.9, and platelets 304. Sodium 143, potassium 4.2, BUN of 18, creatinine 1.1, and glucose of 111. ASSESSMENT AND PLAN: Abdominal pain. The patient does have imaging study and also has a cavitary lesion. Basically, I have asked Dr. Maria and Dr. Hassan as well as Dr. Martinez and Dr. Lester to see the patient for the abdominal pain and constipation as well as for the cavitary lesion and history of hypercalcemia and treatment of hypercalcemia. Ali Joanne Gaines DR: GAIL JOB#: [id number] CC:
[2017-08-28] MEDS: Haloperidol 5mg/ml Inj IM PRN (05:20)
[2017-08-28 08:00] VITALS: BP 106/69
[2017-08-28] MEDS: Docusate 100mg cap ORAL SCH ×2 (08:38→20:43)
[2017-08-28] MEDS: Sennosides 8.6mg ORAL SCH (08:39)
[2017-08-28] MEDS: Bisacodyl EC 5mg tab ORAL SCH (08:44)
[2017-08-28] MEDS ORDERED: LORazepam Inj 2mg/ml 1ml IV PRN (08:45)
[2017-08-28] MEDS: Heparin 5000 units/ml inj SUBQ SCH ×2 (08:47→20:45)
--- NOTE | 2017-08-28 10:39 | GI Progress Note ---
Assessment/Plan Problems: (1) At risk for dehydration due to poor fluid intake ICD Codes: Z91.89 - Other specified personal risk factors, not elsewhere classified SNOMED: 04565966, 725171733 (2) Altered mental status ICD Codes: R41.82 - Altered mental status, unspecified SNOMED: 799914388 (3) Dehydration ICD Codes: E86.0 - Dehydration SNOMED: 98097953 (4) Constipation ICD Codes: K59.00 - Constipation, unspecified SNOMED: 33837790 Status: stable Status Narrative Discussed with Dr. Martinez. Assessment/Plan CT AP reviewed >> Moderate retained colonic stool, nonspecific, correlate with any clinical history of constipation. symptomatic treatment / supportive care ok to advance diet, puree >> fu ST evaluation fu psychiatric recs bowel regime >> colace + miralax ppi IV/PO hydration prn transfusions fu labs Subjective Gastrointestinal/Abdominal: Reports: no symptoms Subjective wants to go home wants to go outside and smoke Objective Last 24 Hour Vital Signs Date Time Temp Pulse Resp B/P (MAP) Pulse Ox O2 Delivery O2 Flow Rate FiO2 08/28/17 08:00 98.4 109 22 106/69 97 98.4 08/28/17 00:00 97.7 82 20 124/77 97 Room Air 97.7 08/27/17 20:00 98.1 93 18 130/79 98 Room Air 98.1 08/27/17 16:05 Room Air 08/27/17 16:03 98.0 97 18 115/72 97 98.0 08/27/17 13:22 Room Air 08/27/17 12:06 97.7 100 18 110/70 97 97.7 Intake and Output 08/27/17 08/28/17 19:00 07:00 Intake Total 790 ml 740 ml Balance 790 ml 740 ml Intake Oral 240 ml 240 ml IV Total 550 ml 500 ml # Voids 4 2 # Bowel Movements 2 2 Laboratory Tests Test 08/27/17 20:00 Cryptococcus Antigen Pending Height (Feet): 5 Height (Inches): 3.00 Weight (Pounds): 129 General Appearance: WD/WN, no apparent distress, alert Cardiovascular: normal rate Respiratory/Chest: normal breath sounds, no respiratory distress Abdominal Exam: normal bowel sounds, non tender, soft Extremities: non-tender, other - R leg amputee Objective more awake, alert today Kaylee Mohr N.P. Aug 28, 2017 10:39
[2017-08-28 10:49] LABS: BASOPHILS % (AUTO) 1.1 % (0.0-2.0); EOSINOPHILS % (AUTO) 0.9 % (0.0-3.0); HEMATOCRIT 40.3 % (37.0-47.0); HEMOGLOBIN 13.8 G/DL (12.0-16.0); MEAN CORPUSCULAR VOLUME 94 FL (80-99); MONOCYTES % (AUTO) 7.1 % (1.0-10.0); NEUTROPHILS % (AUTO) 59.8 % (45.0-75.0); PLATELET COUNT 291 K/UL (150-450); RED BLOOD COUNT 4.29 M/UL (4.20-5.40); RED CELL DISTRIBUTION WIDTH 12.2 % (11.6-14.8); WHITE BLOOD COUNT 8.5 K/UL (4.8-10.8)
[2017-08-28] MEDS ORDERED: DiphenhydrAMINE 50mg/ml Inj IVP PRN (11:00)
[2017-08-28 11:25] LABS: ALANINE AMINOTRANSFERASE 27 U/L (12-78); ALBUMIN 3.7 G/DL (3.4-5.0); ALBUMIN/GLOBULIN RATIO 0.9 (1.0-2.7); ALKALINE PHOSPHATASE 112 U/L (46-116); ANION GAP 10 mmol/L (5-15); ASPARTATE AMINO TRANSFERASE 43 U/L (15-37); BILIRUBIN,TOTAL 0.5 MG/DL (0.2-1.0); BLOOD UREA NITROGEN 13 mg/dL (7-18); CALCIUM 9.2 MG/DL (8.5-10.1); CARBON DIOXIDE 27 MMOL/L (21-32); CHLORIDE 103 MMOL/L (98-107); PHOSPHORUS 2.5 MG/DL (2.5-4.9); POTASSIUM 3.4 MMOL/L (3.5-5.1); SODIUM 140 MMOL/L (136-145)
[2017-08-28 12:00] VITALS: BP 116/73
--- NOTE | 2017-08-28 12:20 | Diagnostic Imaging Report ---
Clinical Indication: Abnormality on recent abdomen CT, chest pain Technique: IV administration nonionic contrast. Spiral acquisition obtained through the chest. Multiplanar reconstructions generated. Total dose length product 486.03 mGycm. CTDIvol(s) 13.94 mGy. Dose reduction achieved using automated exposure control Comparison: Reference made to CT of the abdomen and pelvis dated 08/26/2017 Findings: There is considerable image degradation due to motion artifact. Per technologist, patient was unable to hold still The lungs are diffusely hyperinflated, demonstrate bullous changes predominantly in the upper lobes but also in the medial left lower lobe. 9 mm nodule with small central cavity is demonstrated in the left lower lobe, image 30 of series 7, but actually better visualized on the previous abdomen and pelvis CT due to the motion artifact on the current exam. Posterior and basilar dependent atelectatic changes are seen bilaterally. No other masses or nodules are demonstrated. No infiltrates, effusions, or congestion. The heart size is normal. No pericardial effusion. No mediastinal or hilar mass or adenopathy demonstrated. The included thyroid is unremarkable except for tiny upper pole calcification. No axillary or chest wall mass or adenopathy. The bones are unremarkable The included upper abdominal anatomy demonstrates bilateral renal cysts Impression: Limited exam, due to motion artifact. Significant pathology could be obscured 9 mm nodule in the superior segment left lower lobe, corresponding the abnormality reported on recent abdomen and pelvis CT scan. As previously reported, differential considerations include neoplasm, acute inflammation, post inflammatory abnormality. For Fleischner Society guidelines, recommended a follow-up CT at 3 months, PET/CT, or tissue sampling. Given the small size and location of the lesion, percutaneous tissue sampling is not likely to be successful, so one of the first 2 options would be preferable Evidence of COPD Posterior basilar dependent atelectatic changes. No other acute pathology Bilateral renal cysts, also described on recent abdomen pelvis CT The CT scanner at [facility] is accredited by the [employer] and the scans are performed using protocols designed to limit radiation exposure to as low as reasonably achievable to attain images of sufficient resolution adequate for diagnostic evaluation.
--- NOTE | 2017-08-28 14:46 | Infectious Diseases Prog Note ---
Assessment/Plan Assessment/Plan A; Left lower lung pulmonary nodule with [place] Nicotine dependence HPN Dementia & Psychosis P: will f/u TB & fungal serologies Subjective ROS Limited/Unobtainable: Yes Allergies: Coded Allergies: PENICILLINS (Verified Allergy, Unknown, 07/30/08) Objective Vital Signs Last 24 Hour Vital Signs Date Time Temp Pulse Resp B/P (MAP) Pulse Ox O2 Delivery O2 Flow Rate FiO2 08/28/17 12:00 98.0 100 20 116/73 97 98.0 08/28/17 08:00 98.4 109 22 106/69 97 98.4 08/28/17 00:00 97.7 82 20 124/77 97 Room Air 97.7 08/27/17 20:00 98.1 93 18 130/79 98 Room Air 98.1 08/27/17 16:05 Room Air 08/27/17 16:03 98.0 97 18 115/72 97 98.0 Height (Feet): 5 Height (Inches): 3.00 Weight (Pounds): 129 General Appearance: no acute distress HEENT: mucous membranes moist Respiratory/Chest: lungs clear Cardiovascular: normal rate Abdomen: soft, non tender Extremities: no edema Neurologic/Psychiatric: other - sleeping Laboratory Tests Test 08/27/17 20:00 08/28/17 10:20 Cryptococcus Antigen Pending White Blood Count 8.5 K/UL (4.8-10.8) Red Blood Count 4.29 M/UL (4.20-5.40) Hemoglobin 13.8 G/DL (12.0-16.0) Hematocrit 40.3 % (37.0-47.0) Mean Corpuscular Volume 94 FL (80-99) Mean Corpuscular Hemoglobin 32.1 PG (27.0-31.0) H Mean Corpuscular Hemoglobin Concent 34.2 G/DL (32.0-36.0) Red Cell Distribution Width 12.2 % (11.6-14.8) Platelet Count 291 K/UL (150-450) Mean Platelet Volume 5.7 FL (6.5-10.1) L Neutrophils (%) (Auto) 59.8 % (45.0-75.0) Lymphocytes (%) (Auto) 31.0 % (20.0-45.0) Monocytes (%) (Auto) 7.1 % (1.0-10.0) Eosinophils (%) (Auto) 0.9 % (0.0-3.0) Basophils (%) (Auto) 1.1 % (0.0-2.0) Erythrocyte Sedimentation Rate 40 MM/HR (0-30) H Sodium Level 140 MMOL/L (136-145) Potassium Level 3.4 MMOL/L (3.5-5.1) L Chloride Level 103 MMOL/L (98-107) Carbon Dioxide Level 27 MMOL/L (21-32) Anion Gap 10 mmol/L (5-15) Blood Urea Nitrogen 13 mg/dL (7-18) Creatinine 1.0 MG/DL (0.55-1.30) Estimat Glomerular Filtration Rate mL/min (>60) Glucose Level 86 MG/DL (74-106) Calcium Level 9.2 MG/DL (8.5-10.1) Phosphorus Level 2.5 MG/DL (2.5-4.9) Magnesium Level 2.3 MG/DL (1.8-2.4) Total Bilirubin 0.5 MG/DL (0.2-1.0) Aspartate Amino Transf (AST/SGOT) 43 U/L (15-37) H Alanine Aminotransferase (ALT/SGPT) 27 U/L (12-78) Alkaline Phosphatase 112 U/L (46-116) Total Protein 7.8 G/DL (6.4-8.2) Albumin 3.7 G/DL (3.4-5.0) Globulin 4.1 g/dL Albumin/Globulin Ratio 0.9 (1.0-2.7) L Rheumatoid Factor Screen Pending Cyclic Citrullinated Peptide IgG Ab Pending Anti-Nuclear Antibody Screen Pending c-ANCA Titer Pending p-ANCA Titer Pending Coccidioides Antibody (Comp Fix) Pending TB Test (T-Spot) Pending TB Test Nil Control (T-Spot) Pending TB Test Panel A (T-Spot) Pending TB Test Panel B (T-Spot) Pending TB Test Positive Control (T-Spot) Pending Current Medications Medications (Trade) Dose Ordered Sig/Kvng Route PRN Reason Start Time Stop Time Status Last Admin Dose Admin Acetaminophen (Tylenol) 650 mg Q4H PRN ORAL Mild Pain/Temp > 100.5 08/27/17 00:00 09/26/17 00:00 Bisacodyl (Dulcolax) 10 mg DAILY ORAL 08/27/17 09:00 09/26/17 08:59 08/28/17 08:44 Dextrose (Dextrose 50%) 25 ml STAT PRN IV Hypoglycemia 08/27/17 00:00 09/26/17 00:00 Dextrose (Dextrose 50%) 50 ml STAT PRN IV Hypoglycemia 08/27/17 00:00 09/26/17 00:00 Diphenhydramine HCl (Benadryl) 25 mg Q6H PRN IM Itching 08/28/17 11:00 09/27/17 10:59 Docusate Sodium (Colace) 100 mg EVERY 12 HOURS ORAL 08/27/17 09:00 09/26/17 08:59 08/28/17 08:38 Haloperidol Lactate (Haldol) 5 mg Q6H PRN IM Agitation 08/27/17 14:00 09/26/17 13:59 08/28/17 05:20 Heparin Sodium (Porcine) (Heparin 5000 units/ml) 5,000 units EVERY 12 HOURS SUBQ 08/27/17 09:00 09/26/17 08:59 08/28/17 08:47 Lorazepam (Ativan 2mg/ml 1ml) 2 mg EVERY 6 HOURS PRN IV For Anxiety 08/28/17 08:45 09/04/17 08:44 08/28/17 08:54 Magnesium Hydroxide (Mom) 30 ml EVERY 4 HOURS PRN ORAL Constipation 08/27/17 00:00 09/26/17 00:00 Nicotine (Nicoderm) 1 patch Q24H TDERMAL 08/28/17 11:00 09/27/17 10:59 08/28/17 11:04 Ondansetron HCl (Zofran) 4 mg Q6H PRN IVP Nausea & Vomiting 08/27/17 00:00 09/26/17 00:00 Polyethylene Glycol (Miralax) 17 gm BEDTIME ORAL 08/27/17 21:00 09/26/17 20:59 08/27/17 20:13 Potassium Chloride (K-Dur) 20 meq ONCE ORAL 08/28/17 14:00 09/27/17 15:00 Sennosides (Senokot) 1 tab DAILY ORAL 08/27/17 09:00 09/26/17 08:59 08/28/17 08:39 Sodium Chloride 1,000 ml @ 50 mls/hr Q20H IV 08/27/17 00:57 09/26/17 00:56 08/27/17 20:14 OUMOU JETER Aug 28, 2017 14:46
[2017-08-28 16:00] VITALS: BP 119/83
--- NOTE | 2017-08-28 18:01 | Pulmonology Progress Note ---
Assessment/Plan Assessment/Plan ASSESSMENT: The patient is a 77-year-old female with a history of schizophrenia , hypertension, hyperlipidemia, coronary artery disease, congestive heart failure, peripheral arterial disease, smoker, presenting with abdominal pain, noted to have a 0.8 cm lower lobe nodule. We will obtain a full CT scan of the chest to evaluate this further and send up atypical and infectious serology, but with respect to differential, it would include neoplastic processes, which I feel probably less likely versus atypical infectious or inflammatory processes. PROBLEM LIST: 1. A 0.9 cm LLL cavity lesion 2. Abdominal pain. 3. Tobacco use. 4. Schizophrenia. 5. CAD. 6. CHF. 7. Hypertension. 8. Hyperlipidemia. 9. PAD. TREATMENT PLAN: 1. Optimize pulmonary hygiene/mobilize as tolerated. 2. Repeat PT/CT in 3 months based on Fleishner society guidelines 3. Follow up atypical infectious and inflammatory serologies. 4. Aspiration precautions. 5. Pain control, supportive care, bowel regimen. 6. F/U GI recs 7. DVT prophylaxis, heparin subcutaneous. Subjective Allergies: Coded Allergies: PENICILLINS (Verified Allergy, Unknown, 07/30/08) Subjective AFVSS, stable on RA CT reviewed No cough, no SOB, abd pain better, wants to go home Objective Last 24 Hour Vital Signs Date Time Temp Pulse Resp B/P (MAP) Pulse Ox O2 Delivery O2 Flow Rate FiO2 08/28/17 16:00 97.7 98 21 119/83 99 97.7 08/28/17 12:00 98.0 100 20 116/73 97 98.0 08/28/17 08:00 98.4 109 22 106/69 97 98.4 08/28/17 00:00 97.7 82 20 124/77 97 Room Air 97.7 08/27/17 20:00 98.1 93 18 130/79 98 Room Air 98.1 Intake and Output 08/27/17 08/28/17 19:00 07:00 Intake Total 790 ml 740 ml Balance 790 ml 740 ml Intake Oral 240 ml 240 ml IV Total 550 ml 500 ml # Voids 4 2 # Bowel Movements 2 2 General Appearance: WD/WN, no acute distress HEENT: normocephalic, atraumatic, anicteric, mucous membranes moist Respiratory/Chest: chest wall non-tender, lungs clear, normal breath sounds, no respiratory distress Cardiovascular: normal peripheral pulses, normal rate, regular rhythm Abdomen: normal bowel sounds, soft, non tender, no organomegaly Extremities: no cyanosis, no clubbing, no edema Laboratory Tests 08/27/17 20:00: Cryptococcus Antigen [Pending] 08/28/17 10:20: White Blood Count 8.5, Red Blood Count 4.29, Hemoglobin 13.8, Hematocrit 40.3, Mean Corpuscular Volume 94, Mean Corpuscular Hemoglobin 32.1H, Mean Corpuscular Hemoglobin Concent 34.2, Red Cell Distribution Width 12.2, Platelet Count 291, Mean Platelet Volume 5.7L, Neutrophils (%) (Auto) 59.8, Lymphocytes (%) (Auto) 31.0, Monocytes (%) (Auto) 7.1, Eosinophils (%) (Auto) 0.9, Basophils (%) (Auto ) 1.1, Erythrocyte Sedimentation Rate 40H, Sodium Level 140, Potassium Level 3.4L, Chloride Level 103, Carbon Dioxide Level 27, Anion Gap 10, Blood Urea Nitrogen 13, Creatinine 1.0, Estimat Glomerular Filtration Rate , Glucose Level 86, Calcium Level 9.2, Phosphorus Level 2.5, Magnesium Level 2.3, Total Bilirubin 0.5, Aspartate Amino Transf (AST/SGOT) 43H, Alanine Aminotransferase ( ALT/SGPT) 27, Alkaline Phosphatase 112, Total Protein 7.8, Albumin 3.7, Globulin 4.1, Albumin/Globulin Ratio 0.9L, Rheumatoid Factor Screen [Pending], Cyclic Citrullinated Peptide IgG Ab [Pending], Anti-Nuclear Antibody Screen [ Pending], c-ANCA Titer [Pending], p-ANCA Titer [Pending], Coccidioides Antibody (Comp Fix) [Pending], TB Test (T-Spot) [Pending], TB Test Nil Control (T-Spot) [ Pending], TB Test Panel A (T-Spot) [Pending], TB Test Panel B (T-Spot) [Pending] , TB Test Positive Control (T-Spot) [Pending] Current Medications Medications (Trade) Dose Ordered Sig/Kvng Route PRN Reason Start Time Stop Time Status Last Admin Dose Admin Acetaminophen (Tylenol) 650 mg Q4H PRN ORAL Mild Pain/Temp > 100.5 08/27/17 00:00 09/26/17 00:00 Bisacodyl (Dulcolax) 10 mg DAILY ORAL 08/27/17 09:00 09/26/17 08:59 08/28/17 08:44 Dextrose (Dextrose 50%) 25 ml STAT PRN IV Hypoglycemia 08/27/17 00:00 09/26/17 00:00 Dextrose (Dextrose 50%) 50 ml STAT PRN IV Hypoglycemia 08/27/17 00:00 09/26/17 00:00 Diphenhydramine HCl (Benadryl) 25 mg Q6H PRN IM Itching 08/28/17 11:00 09/27/17 10:59 Docusate Sodium (Colace) 100 mg EVERY 12 HOURS ORAL 08/27/17 09:00 09/26/17 08:59 08/28/17 08:38 Haloperidol Lactate (Haldol) 5 mg Q6H PRN IM Agitation 08/27/17 14:00 09/26/17 13:59 08/28/17 05:20 Heparin Sodium (Porcine) (Heparin 5000 units/ml) 5,000 units EVERY 12 HOURS SUBQ 08/27/17 09:00 09/26/17 08:59 08/28/17 08:47 Lorazepam (Ativan 2mg/ml 1ml) 2 mg EVERY 6 HOURS PRN IV For Anxiety 08/28/17 08:45 09/04/17 08:44 08/28/17 08:54 Magnesium Hydroxide (Mom) 30 ml EVERY 4 HOURS PRN ORAL Constipation 08/27/17 00:00 09/26/17 00:00 Nicotine (Nicoderm) 1 patch Q24H TDERMAL 08/28/17 11:00 09/27/17 10:59 08/28/17 11:04 Ondansetron HCl (Zofran) 4 mg Q6H PRN IVP Nausea & Vomiting 08/27/17 00:00 09/26/17 00:00 Polyethylene Glycol (Miralax) 17 gm BEDTIME ORAL 08/27/17 21:00 09/26/17 20:59 08/27/17 20:13 Potassium Chloride (K-Dur) 20 meq ONCE ORAL 08/28/17 14:00 09/27/17 15:00 08/28/17 15:11 Sennosides (Senokot) 1 tab DAILY ORAL 08/27/17 09:00 09/26/17 08:59 08/28/17 08:39 Sodium Chloride 1,000 ml @ 50 mls/hr Q20H IV 08/27/17 00:57 09/26/17 00:56 08/27/17 20:14 JAHAIRA PADGETT M.D. Aug 28, 2017 18:01
[2017-08-28 20:00] VITALS: BP 123/83
[2017-08-28] MEDS: Miralax 17gm pkt ORAL SCH (20:44)
--- NOTE | 2017-08-28 21:23 | General Progress Note ---
Assessment/Plan Problem List: (1) UTI (lower urinary tract infection) ICD Codes: N39.0 - UTI (lower urinary tract infection) SNOMED: 7709055 (2) s/p multiple lacunar strokes (3) Intractable abdominal pain ICD Codes: R10.9 - Unspecified abdominal pain SNOMED: 02127729, 962375985 (4) Constipation ICD Codes: K59.00 - Constipation, unspecified SNOMED: 93660116 (5) Dehydration ICD Codes: E86.0 - Dehydration SNOMED: 55484020 (6) Psychosis ICD Codes: F29 - Unspecified psychosis not due to a substance or known physiological condition SNOMED: 76385206 (7) At risk for dehydration due to poor fluid intake ICD Codes: Z91.89 - Other specified personal risk factors, not elsewhere classified SNOMED: 92067693, 718310801 Status: progressing Assessment/Plan afebrile constipation cavitary lesion uti abx per id cavitary lesion w/u per pulmonary psych patient Subjective ROS Limited/Unobtainable: Yes Constitutional: Reports: no symptoms Allergies: Coded Allergies: PENICILLINS (Verified Allergy, Unknown, 07/30/08) Objective Last 24 Hour Vital Signs Date Time Temp Pulse Resp B/P (MAP) Pulse Ox O2 Delivery O2 Flow Rate FiO2 08/28/17 20:00 97.0 101 15 123/83 93 97.0 08/28/17 16:00 Room Air 08/28/17 16:00 97.7 98 21 119/83 99 97.7 08/28/17 12:00 98.0 100 20 116/73 97 98.0 08/28/17 12:00 Room Air 08/28/17 08:00 Room Air 08/28/17 08:00 98.4 109 22 106/69 97 98.4 08/28/17 00:00 97.7 82 20 124/77 97 Room Air 97.7 Intake and Output 08/27/17 08/28/17 19:00 07:00 Intake Total 790 ml 740 ml Balance 790 ml 740 ml Intake Oral 240 ml 240 ml IV Total 550 ml 500 ml # Voids 4 2 # Bowel Movements 2 2 Laboratory Tests 08/28/17 10:20: White Blood Count 8.5, Red Blood Count 4.29, Hemoglobin 13.8, Hematocrit 40.3, Mean Corpuscular Volume 94, Mean Corpuscular Hemoglobin 32.1H, Mean Corpuscular Hemoglobin Concent 34.2, Red Cell Distribution Width 12.2, Platelet Count 291, Mean Platelet Volume 5.7L, Neutrophils (%) (Auto) 59.8, Lymphocytes (%) (Auto) 31.0, Monocytes (%) (Auto) 7.1, Eosinophils (%) (Auto) 0.9, Basophils (%) (Auto ) 1.1, Erythrocyte Sedimentation Rate 40H, Sodium Level 140, Potassium Level 3.4L, Chloride Level 103, Carbon Dioxide Level 27, Anion Gap 10, Blood Urea Nitrogen 13, Creatinine 1.0, Estimat Glomerular Filtration Rate , Glucose Level 86, Calcium Level 9.2, Phosphorus Level 2.5, Magnesium Level 2.3, Total Bilirubin 0.5, Aspartate Amino Transf (AST/SGOT) 43H, Alanine Aminotransferase ( ALT/SGPT) 27, Alkaline Phosphatase 112, Total Protein 7.8, Albumin 3.7, Globulin 4.1, Albumin/Globulin Ratio 0.9L, Rheumatoid Factor Screen [Pending], Cyclic Citrullinated Peptide IgG Ab [Pending], Anti-Nuclear Antibody Screen [ Pending], c-ANCA Titer [Pending], p-ANCA Titer [Pending], Coccidioides Antibody (Comp Fix) [Pending], TB Test (T-Spot) [Pending], TB Test Nil Control (T-Spot) [ Pending], TB Test Panel A (T-Spot) [Pending], TB Test Panel B (T-Spot) [Pending] , TB Test Positive Control (T-Spot) [Pending] Height (Feet): 5 Height (Inches): 3.00 Weight (Pounds): 129 General Appearance: confused Cardiovascular: normal rate Respiratory/Chest: lungs clear Abdomen: soft Summer Gaines MD Aug 28, 2017 21:23
[2017-08-29] VITALS: BP 137/85
--- NOTE | 2017-08-29 00:53 | Consultation ---
History of Present Illness General Date patient seen: Aug 27, 2017 Chief Complaint: Abdominal Pain Referring physician: ROSSI RETANA Reason for Consultation: ABDOMINAL PAIN Present Illness HPI states that patient has had persistent abdominal pain for many weeks now. Patient has severe psychiatric history and is a poor historian. the pt is agitated and climbing out of bed Allergies: Coded Allergies: PENICILLINS (Verified Allergy, Unknown, 07/30/08) Medication History Scheduled Amino Acids/Protein Hydrolys (Pro-Stat Liquid), 30 ML ORAL TWICE A DAY, ( Reported) Amlodipine Besylate* (Amlodipine Besylate*), 10 MG ORAL DAILY, (Reported) Ascorbic Acid* (Vitamin C*), 500 MG ORAL DAILY, (Reported) Aspirin* (Aspir 81*), 81 MG ORAL DAILY, (Reported) Atorvastatin Calcium* (Lipitor*), 5 MG ORAL BEDTIME, (Reported) Benztropine Mesylate (Cogentin 1mg*), 1 MG ORAL DAILY, (Reported) Bisacodyl (Dulcolax), 10 MG PO DAILY, (Reported) Docusate Sodium* (Docusate Sodium*), 100 MG ORAL TWICE A DAY, (Reported) Enalapril Maleate* (Enalapril Maleate*), 2.5 MG ORAL DAILY, (Reported) Furosemide* (Lasix*), 20 MG ORAL DAILY, (Reported) Memantine Hcl* (Namenda*), 10 MG ORAL DAILY, (Reported) Mirtazapine* (Remeron*), 15 MG ORAL BEDTIME, (Reported) Oxybutynin Chloride (Oxybutynin Chloride), 5 MG ORAL BID, (Reported) Potassium Chloride (Potassium Chloride), 20 MEQ PO DAILY, (Reported) Quetiapine Fumarate* (Seroquel*), 25 MG ORAL DAILY, (Reported) Scheduled PRN Acetaminophen* (Acetaminophen 325MG Tablet*), 650 MG ORAL Q4H PRN for For Pain, (Reported) Acetaminophen* (Acetaminophen 325MG Tablet*), 650 MG ORAL Q4H PRN for Fever/ Headache/Mild Pain, (Reported) Bisacodyl (Dulcolax), 10 MG RC DAILY PRN for Constipation, (Reported) Magnesium Hydroxide* (Milk Of Magnesia*), 30 ML ORAL DAILY PRN for Constipation, (Reported) [mylanta], 30 ML PO EVERY 4 HOURS PRN for To Patient Comfort, (Reported) Discontinued Medications Amino Acids/Protein Hydrolys (Pro-Stat Liquid), 30 ML ORAL TWICE A DAY, ( Reported) Discontinued Reason: Medication dose changed Amlodipine Besylate* (Amlodipine Besylate*), 5 MG ORAL DAILY, (Reported) Discontinued Reason: Medication dose changed Benztropine Mesylate* (Cogentin*), 1 MG PO DAILY, (Reported) Discontinued Reason: Medication dose changed Bisacodyl* (Dulcolax*), 10 MG RECTAL DAILY, (Reported) Discontinued Reason: MD discontinued med Bisacodyl* (Dulcolax*), 10 MG ORAL DAILY, (Reported) Discontinued Reason: Medication dose changed Hydrocodone/Acetaminophen 5-325* (Hydrocodone/Acetaminophen 5-325*), 1 TAB ORAL Q4H PRN for For Pain, (Reported) Discontinued Reason: MD discontinued med Magnesium Hydroxide* (Milk Of Magnesia*), 30 ML ORAL DAILY, (Reported) Discontinued Reason: Medication dose changed Mirtazapine* (Remeron*), 15 MG ORAL BEDTIME, (Reported) Discontinued Reason: MD discontinued med Oxybutynin Chloride (Oxybutynin Chloride Er), 5 MG PO DAILY, (Reported) Discontinued Reason: Pt stopped taking med Oxybutynin Chloride (Ditropan Xl), 5 MG ORAL DAILY, (Reported) Discontinued Reason: Pt stopped taking med Paliperidone (Invega), 6 MG PO BEDTIME, (Reported) Discontinued Reason: MD discontinued med Potassium Chloride (Potassium Chloride), 20 MEQ ORAL DAILY, (Reported) Discontinued Reason: Medication dose changed Potassium Chloride (Potassium Chloride), 20 MEQ PO, (Reported) Discontinued Reason: Medication dose changed Quetiapine Fumarate* (Seroquel*), 200 MG ORAL BEDTIME, (Reported) Discontinued Reason: Medication dose changed Quetiapine Fumarate* (Seroquel*), 25 MG ORAL DAILY, (Reported) Discontinued Reason: Medication dose changed Simvastatin (Zocor), 10 MG ORAL BEDTIME, (Reported) Discontinued Reason: discontinued med Temazepam* (Restoril*), 15 MG ORAL BEDTIME PRN for Insomnia, (Reported) Discontinued Reason: discontinued med Zolpidem Tartrate* (Zolpidem Tartrate*), 10 MG ORAL BEDTIME PRN for Insomnia, ( Reported) Discontinued Reason: discontinued med Patient History Limited by: medical condition History Provided By: Patient, Medical Record, PMD Healthcare decision maker Lauren Fisher Resuscitation status Full Code Advanced Directive on File Past Medical/Surgical History Past Medical/Surgical History: (1) Sepsis (2) At risk for aspiration (3) Gastroenteritis (4) Intractable vomiting (5) Encounter for PEG (percutaneous endoscopic gastrostomy) (6) Neuroleptic-induced tardive dyskinesia (7) Bradycardia (8) Psychosis (9) Constipation (10) Dehydration (11) Acute abdominal pain (12) Psychosis (13) Altered mental status (14) At risk for dehydration due to poor fluid intake (15) UTI (lower urinary tract infection) (16) Intractable abdominal pain (17) s/p multiple lacunar strokes Review of Systems Psychiatric: Reports: prior hx, anxiety, depressed feelings, emotional problems , hallucinations Physical Exam General Appearance: no apparent distress, alert, confused, agitated Last 24 Hour Vital Signs Date Time Temp Pulse Resp B/P (MAP) Pulse Ox O2 Delivery O2 Flow Rate FiO2 08/29/17 00:00 97.5 95 15 137/85 98 97.5 08/28/17 20:00 97.0 101 15 123/83 93 97.0 08/28/17 16:00 Room Air 08/28/17 16:00 97.7 98 21 119/83 99 97.7 08/28/17 12:00 98.0 100 20 116/73 97 98.0 08/28/17 12:00 Room Air 08/28/17 08:00 Room Air 08/28/17 08:00 98.4 109 22 106/69 97 98.4 Intake and Output 08/28/17 08/29/17 19:00 07:00 Intake Total 880 ml Balance 880 ml Intake Oral 480 ml IV Total 400 ml # Voids 4 # Bowel Movements 2 Laboratory Tests Test 08/28/17 10:20 White Blood Count 8.5 K/UL (4.8-10.8) Red Blood Count 4.29 M/UL (4.20-5.40) Hemoglobin 13.8 G/DL (12.0-16.0) Hematocrit 40.3 % (37.0-47.0) Mean Corpuscular Volume 94 FL (80-99) Mean Corpuscular Hemoglobin 32.1 PG (27.0-31.0) H Mean Corpuscular Hemoglobin Concent 34.2 G/DL (32.0-36.0) Red Cell Distribution Width 12.2 % (11.6-14.8) Platelet Count 291 K/UL (150-450) Mean Platelet Volume 5.7 FL (6.5-10.1) L Neutrophils (%) (Auto) 59.8 % (45.0-75.0) Lymphocytes (%) (Auto) 31.0 % (20.0-45.0) Monocytes (%) (Auto) 7.1 % (1.0-10.0) Eosinophils (%) (Auto) 0.9 % (0.0-3.0) Basophils (%) (Auto) 1.1 % (0.0-2.0) Erythrocyte Sedimentation Rate 40 MM/HR (0-30) H Sodium Level 140 MMOL/L (136-145) Potassium Level 3.4 MMOL/L (3.5-5.1) L Chloride Level 103 MMOL/L (98-107) Carbon Dioxide Level 27 MMOL/L (21-32) Anion Gap 10 mmol/L (5-15) Blood Urea Nitrogen 13 mg/dL (7-18) Creatinine 1.0 MG/DL (0.55-1.30) Estimat Glomerular Filtration Rate mL/min (>60) Glucose Level 86 MG/DL (74-106) Calcium Level 9.2 MG/DL (8.5-10.1) Phosphorus Level 2.5 MG/DL (2.5-4.9) Magnesium Level 2.3 MG/DL (1.8-2.4) Total Bilirubin 0.5 MG/DL (0.2-1.0) Aspartate Amino Transf (AST/SGOT) 43 U/L (15-37) H Alanine Aminotransferase (ALT/SGPT) 27 U/L (12-78) Alkaline Phosphatase 112 U/L (46-116) Total Protein 7.8 G/DL (6.4-8.2) Albumin 3.7 G/DL (3.4-5.0) Globulin 4.1 g/dL Albumin/Globulin Ratio 0.9 (1.0-2.7) L Rheumatoid Factor Screen Pending Cyclic Citrullinated Peptide IgG Ab Pending Anti-Nuclear Antibody Screen Pending c-ANCA Titer Pending p-ANCA Titer Pending Coccidioides Antibody (Comp Fix) Pending TB Test (T-Spot) Pending TB Test Nil Control (T-Spot) Pending TB Test Panel A (T-Spot) Pending TB Test Panel B (T-Spot) Pending TB Test Positive Control (T-Spot) Pending Height (Feet): 5 Height (Inches): 3.00 Weight (Pounds): 129 Medications Current Medications Medications (Trade) Dose Ordered Sig/Kvng Route PRN Reason Start Time Stop Time Status Last Admin Dose Admin Acetaminophen (Tylenol) 650 mg Q4H PRN ORAL Mild Pain/Temp > 100.5 08/27/17 00:00 09/26/17 00:00 Bisacodyl (Dulcolax) 10 mg DAILY ORAL 08/27/17 09:00 09/26/17 08:59 08/28/17 08:44 Dextrose (Dextrose 50%) 25 ml STAT PRN IV Hypoglycemia 08/27/17 00:00 09/26/17 00:00 Dextrose (Dextrose 50%) 50 ml STAT PRN IV Hypoglycemia 08/27/17 00:00 09/26/17 00:00 Diphenhydramine HCl (Benadryl) 25 mg Q6H PRN IM Itching 08/28/17 11:00 09/27/17 10:59 Docusate Sodium (Colace) 100 mg EVERY 12 HOURS ORAL 08/27/17 09:00 09/26/17 08:59 08/28/17 20:43 Haloperidol Lactate (Haldol) 5 mg Q6H PRN IM Agitation 08/27/17 14:00 09/26/17 13:59 08/28/17 05:20 Heparin Sodium (Porcine) (Heparin 5000 units/ml) 5,000 units EVERY 12 HOURS SUBQ 08/27/17 09:00 09/26/17 08:59 08/28/17 20:45 Lorazepam (Ativan 2mg/ml 1ml) 2 mg EVERY 6 HOURS PRN IV For Anxiety 08/28/17 08:45 09/04/17 08:44 08/28/17 08:54 Magnesium Hydroxide (Mom) 30 ml EVERY 4 HOURS PRN ORAL Constipation 08/27/17 00:00 09/26/17 00:00 Nicotine (Nicoderm) 1 patch Q24H TDERMAL 08/28/17 11:00 09/27/17 10:59 08/28/17 11:04 Ondansetron HCl (Zofran) 4 mg Q6H PRN IVP Nausea & Vomiting 08/27/17 00:00 09/26/17 00:00 Polyethylene Glycol (Miralax) 17 gm BEDTIME ORAL 08/27/17 21:00 09/26/17 20:59 08/28/17 20:44 Potassium Chloride (K-Dur) 20 meq ONCE ORAL 08/28/17 14:00 09/27/17 15:00 08/28/17 15:11 Sennosides (Senokot) 1 tab DAILY ORAL 08/27/17 09:00 09/26/17 08:59 08/28/17 08:39 Sodium Chloride 1,000 ml @ 50 mls/hr Q20H IV 08/27/17 00:57 09/26/17 00:56 08/27/17 20:14 Assessment/Plan Assessment/Plan encephalopathy dementia with behavioral dist nehadol Manny Montesinos M.D. Aug 29, 2017 00:53
--- NOTE | 2017-08-29 00:57 | General Progress Note ---
Assessment/Plan Assessment/Plan encephalopathy dementia with behavioral dist haldol atmaryanne ryder Subjective Date patient seen: Aug 28, 2017 Neurologic/Psychiatric: Reports: anxiety, depressed, emotional problems Allergies: Coded Allergies: PENICILLINS (Verified Allergy, Unknown, 07/30/08) Objective Last 24 Hour Vital Signs Date Time Temp Pulse Resp B/P (MAP) Pulse Ox O2 Delivery O2 Flow Rate FiO2 08/29/17 00:00 97.5 95 15 137/85 98 97.5 08/28/17 20:00 97.0 101 15 123/83 93 97.0 08/28/17 16:00 Room Air 08/28/17 16:00 97.7 98 21 119/83 99 97.7 08/28/17 12:00 98.0 100 20 116/73 97 98.0 08/28/17 12:00 Room Air 08/28/17 08:00 Room Air 08/28/17 08:00 98.4 109 22 106/69 97 98.4 Intake and Output 08/28/17 08/29/17 19:00 07:00 Intake Total 880 ml Balance 880 ml Intake Oral 480 ml IV Total 400 ml # Voids 4 # Bowel Movements 2 Laboratory Tests 08/28/17 10:20: White Blood Count 8.5, Red Blood Count 4.29, Hemoglobin 13.8, Hematocrit 40.3, Mean Corpuscular Volume 94, Mean Corpuscular Hemoglobin 32.1H, Mean Corpuscular Hemoglobin Concent 34.2, Red Cell Distribution Width 12.2, Platelet Count 291, Mean Platelet Volume 5.7L, Neutrophils (%) (Auto) 59.8, Lymphocytes (%) (Auto) 31.0, Monocytes (%) (Auto) 7.1, Eosinophils (%) (Auto) 0.9, Basophils (%) (Auto ) 1.1, Erythrocyte Sedimentation Rate 40H, Sodium Level 140, Potassium Level 3.4L, Chloride Level 103, Carbon Dioxide Level 27, Anion Gap 10, Blood Urea Nitrogen 13, Creatinine 1.0, Estimat Glomerular Filtration Rate , Glucose Level 86, Calcium Level 9.2, Phosphorus Level 2.5, Magnesium Level 2.3, Total Bilirubin 0.5, Aspartate Amino Transf (AST/SGOT) 43H, Alanine Aminotransferase ( ALT/SGPT) 27, Alkaline Phosphatase 112, Total Protein 7.8, Albumin 3.7, Globulin 4.1, Albumin/Globulin Ratio 0.9L, Rheumatoid Factor Screen [Pending], Cyclic Citrullinated Peptide IgG Ab [Pending], Anti-Nuclear Antibody Screen [ Pending], c-ANCA Titer [Pending], p-ANCA Titer [Pending], Coccidioides Antibody (Comp Fix) [Pending], TB Test (T-Spot) [Pending], TB Test Nil Control (T-Spot) [ Pending], TB Test Panel A (T-Spot) [Pending], TB Test Panel B (T-Spot) [Pending] , TB Test Positive Control (T-Spot) [Pending] Height (Feet): 5 Height (Inches): 3.00 Weight (Pounds): 129 General Appearance: no apparent distress, alert, confused, agitated Manny Lester M.D. Aug 29, 2017 00:57
[2017-08-29 04:00] VITALS: BP 127/75
[2017-08-29 07:40] LABS: EOSINOPHILS % (AUTO) 1.3 % (0.0-3.0); HEMATOCRIT 41.6 % (37.0-47.0); HEMOGLOBIN 14.6 G/DL (12.0-16.0); LYMPHOCYTES % (AUTO) 36.8 % (20.0-45.0); MEAN CORPUSCULAR VOLUME 94 FL (80-99); MONOCYTES % (AUTO) 8.2 % (1.0-10.0); NEUTROPHILS % (AUTO) 52.8 % (45.0-75.0); PLATELET COUNT 309 K/UL (150-450); RED BLOOD COUNT 4.43 M/UL (4.20-5.40); RED CELL DISTRIBUTION WIDTH 12.2 % (11.6-14.8); WHITE BLOOD COUNT 7.4 K/UL (4.8-10.8)
[2017-08-29 07:43] VITALS: BP 104/62
[2017-08-29 07:54] LABS: ANION GAP 12 mmol/L (5-15); BLOOD UREA NITROGEN 8 mg/dL (7-18); CALCIUM 9.9 MG/DL (8.5-10.1); CARBON DIOXIDE 24 MMOL/L (21-32); CHLORIDE 104 MMOL/L (98-107); CREATININE 0.8 MG/DL (0.55-1.30); POTASSIUM 4.5 MMOL/L (3.5-5.1); SODIUM 140 MMOL/L (136-145)
[2017-08-29] MEDS: Heparin 5000 units/ml inj SUBQ SCH ×2 (08:54→20:39)
[2017-08-29] MEDS: DiphenhydrAMINE 50mg/ml Inj IM PRN (08:54)
[2017-08-29] MEDS: Haloperidol 5mg/ml Inj IM PRN (08:54)
[2017-08-29] MEDS: Bisacodyl EC 5mg tab ORAL SCH (09:00)
[2017-08-29] MEDS: Sennosides 8.6mg ORAL SCH (09:00)
[2017-08-29] MEDS: Docusate 100mg cap ORAL SCH ×2 (09:00→20:35)
--- NOTE | 2017-08-29 09:51 | Pulmonology Progress Note ---
Assessment/Plan Assessment/Plan PROBLEM LIST: 1. A 0.9 cm LLL cavity lesion 2. Abdominal pain. 3. Tobacco use. 4. Schizophrenia. 5. CAD. 6. CHF. 7. Hypertension. 8. Hyperlipidemia. 9. PAD. TREATMENT PLAN: 1. Optimize pulmonary hygiene/mobilize as tolerated. 2. Repeat PT/CT in 3 months based on Fleishner society guidelines 3. Follow up atypical infectious and inflammatory serologies. 4. Aspiration precautions. 5. Pain control, supportive care, bowel regimen. 6. F/U GI recs 7. DVT prophylaxis, heparin subcutaneous. Subjective Interval Events: None Constitutional: Reports: no symptoms HEENT: Repors: no symptoms Respiratory: Reports: no symptoms Cardiovascular: Reports: no symptoms Gastrointestinal/Abdominal: Reports: no symptoms Allergies: Coded Allergies: PENICILLINS (Verified Allergy, Unknown, 07/30/08) Objective Last 24 Hour Vital Signs Date Time Temp Pulse Resp B/P (MAP) Pulse Ox O2 Delivery O2 Flow Rate FiO2 08/29/17 07:43 97.9 74 18 104/62 Room Air 97.9 08/29/17 04:00 97.0 92 18 127/75 99 97.0 08/29/17 00:00 97.5 95 15 137/85 98 97.5 08/28/17 20:00 97.0 101 15 123/83 93 97.0 08/28/17 16:00 Room Air 08/28/17 16:00 97.7 98 21 119/83 99 97.7 08/28/17 12:00 98.0 100 20 116/73 97 98.0 08/28/17 12:00 Room Air Intake and Output 08/28/17 08/29/17 19:00 07:00 Intake Total 880 ml 360 ml Balance 880 ml 360 ml Intake Oral 480 ml 360 ml IV Total 400 ml # Voids 4 3 # Bowel Movements 2 1 General Appearance: no acute distress HEENT: normocephalic Respiratory/Chest: chest wall non-tender, lungs clear Cardiovascular: normal peripheral pulses, normal rate Abdomen: normal bowel sounds, soft, non tender Microbiology Date/Time Source Procedure Growth Status 08/26/17 20:30 Rectum VRE Culture - Final NO VANCOMYCIN RESISTANT ENTEROCOCCUS ... Complete Laboratory Tests 08/28/17 10:20: White Blood Count 8.5, Red Blood Count 4.29, Hemoglobin 13.8, Hematocrit 40.3, Mean Corpuscular Volume 94, Mean Corpuscular Hemoglobin 32.1H, Mean Corpuscular Hemoglobin Concent 34.2, Red Cell Distribution Width 12.2, Platelet Count 291, Mean Platelet Volume 5.7L, Neutrophils (%) (Auto) 59.8, Lymphocytes (%) (Auto) 31.0, Monocytes (%) (Auto) 7.1, Eosinophils (%) (Auto) 0.9, Basophils (%) (Auto ) 1.1, Erythrocyte Sedimentation Rate 40H, Sodium Level 140, Potassium Level 3.4L, Chloride Level 103, Carbon Dioxide Level 27, Anion Gap 10, Blood Urea Nitrogen 13, Creatinine 1.0, Estimat Glomerular Filtration Rate , Glucose Level 86, Calcium Level 9.2, Phosphorus Level 2.5, Magnesium Level 2.3, Total Bilirubin 0.5, Aspartate Amino Transf (AST/SGOT) 43H, Alanine Aminotransferase ( ALT/SGPT) 27, Alkaline Phosphatase 112, Total Protein 7.8, Albumin 3.7, Globulin 4.1, Albumin/Globulin Ratio 0.9L, Rheumatoid Factor Screen [Pending], Cyclic Citrullinated Peptide IgG Ab [Pending], Anti-Nuclear Antibody Screen [ Pending], c-ANCA Titer [Pending], p-ANCA Titer [Pending], Coccidioides Antibody (Comp Fix) [Pending], TB Test (T-Spot) [Pending], TB Test Nil Control (T-Spot) [ Pending], TB Test Panel A (T-Spot) [Pending], TB Test Panel B (T-Spot) [Pending] , TB Test Positive Control (T-Spot) [Pending] 08/29/17 05:05: White Blood Count 7.4, Red Blood Count 4.43, Hemoglobin 14.6, Hematocrit 41.6, Mean Corpuscular Volume 94, Mean Corpuscular Hemoglobin 32.9H, Mean Corpuscular Hemoglobin Concent 35.0, Red Cell Distribution Width 12.2, Platelet Count 309, Mean Platelet Volume 5.3L, Neutrophils (%) (Auto) 52.8, Lymphocytes (%) (Auto) 36.8, Monocytes (%) (Auto) 8.2, Eosinophils (%) (Auto) 1.3, Basophils (%) (Auto ) 1.0, Sodium Level 140, Potassium Level 4.5, Chloride Level 104, Carbon Dioxide Level 24, Anion Gap 12, Blood Urea Nitrogen 8, Creatinine 0.8, Estimat Glomerular Filtration Rate , Glucose Level 69L, Calcium Level 9.9 Current Medications Medications (Trade) Dose Ordered Sig/Kvng Route PRN Reason Start Time Stop Time Status Last Admin Dose Admin Acetaminophen (Tylenol) 650 mg Q4H PRN ORAL Mild Pain/Temp > 100.5 08/27/17 00:00 09/26/17 00:00 Bisacodyl (Dulcolax) 10 mg DAILY ORAL 08/27/17 09:00 09/26/17 08:59 08/28/17 08:44 Dextrose (Dextrose 50%) 25 ml STAT PRN IV Hypoglycemia 08/27/17 00:00 09/26/17 00:00 Dextrose (Dextrose 50%) 50 ml STAT PRN IV Hypoglycemia 08/27/17 00:00 09/26/17 00:00 Diphenhydramine HCl (Benadryl) 25 mg Q6H PRN IM Itching 08/28/17 11:00 09/27/17 10:59 08/29/17 08:54 Docusate Sodium (Colace) 100 mg EVERY 12 HOURS ORAL 08/27/17 09:00 09/26/17 08:59 08/28/17 20:43 Haloperidol Lactate (Haldol) 5 mg Q6H PRN IM Agitation 08/27/17 14:00 09/26/17 13:59 08/29/17 08:54 Heparin Sodium (Porcine) (Heparin 5000 units/ml) 5,000 units EVERY 12 HOURS SUBQ 08/27/17 09:00 09/26/17 08:59 08/29/17 08:54 Lorazepam (Ativan 2mg/ml 1ml) 2 mg EVERY 6 HOURS PRN IV For Anxiety 08/28/17 08:45 09/04/17 08:44 08/28/17 08:54 Magnesium Hydroxide (Mom) 30 ml EVERY 4 HOURS PRN ORAL Constipation 08/27/17 00:00 09/26/17 00:00 Nicotine (Nicoderm) 1 patch Q24H TDERMAL 08/28/17 11:00 09/27/17 10:59 08/28/17 11:04 Olanzapine (ZyPREXA) 2.5 mg BEDTIME ORAL 08/29/17 21:00 09/28/17 20:59 Ondansetron HCl (Zofran) 4 mg Q6H PRN IVP Nausea & Vomiting 08/27/17 00:00 09/26/17 00:00 Polyethylene Glycol (Miralax) 17 gm BEDTIME ORAL 08/27/17 21:00 09/26/17 20:59 08/28/17 20:44 Potassium Chloride (K-Dur) 20 meq ONCE ORAL 08/28/17 14:00 09/27/17 15:00 08/28/17 15:11 Sennosides (Senokot) 1 tab DAILY ORAL 08/27/17 09:00 09/26/17 08:59 08/28/17 08:39 Sodium Chloride 1,000 ml @ 50 mls/hr Q20H IV 08/27/17 00:57 09/26/17 00:56 08/27/17 20:14 Manny Garcia MD Aug 29, 2017 09:51
--- NOTE | 2017-08-29 10:29 | GI Progress Note ---
Assessment/Plan Problems: (1) At risk for dehydration due to poor fluid intake ICD Codes: Z91.89 - Other specified personal risk factors, not elsewhere classified SNOMED: 12376252, 491686463 (2) Altered mental status ICD Codes: R41.82 - Altered mental status, unspecified SNOMED: 088817241 (3) Dehydration ICD Codes: E86.0 - Dehydration SNOMED: 13712576 (4) Constipation ICD Codes: K59.00 - Constipation, unspecified SNOMED: 31941098 Status: stable Status Narrative Discussed with Dr. Martinez. Assessment/Plan CT AP reviewed >> Moderate retained colonic stool, nonspecific, correlate with any clinical history of constipation. symptomatic treatment / supportive care ok to advance diet, puree fu psychiatric recs bowel regime >> colace + miralax ppi IV/PO hydration prn transfusions PT evaluation fu labs Subjective Subjective wants to go home wants to go outside and smoke Objective Last 24 Hour Vital Signs Date Time Temp Pulse Resp B/P (MAP) Pulse Ox O2 Delivery O2 Flow Rate FiO2 08/29/17 07:43 97.9 74 18 104/62 Room Air 97.9 08/29/17 04:00 97.0 92 18 127/75 99 97.0 08/29/17 00:00 97.5 95 15 137/85 98 97.5 08/28/17 20:00 97.0 101 15 123/83 93 97.0 08/28/17 16:00 Room Air 08/28/17 16:00 97.7 98 21 119/83 99 97.7 08/28/17 12:00 98.0 100 20 116/73 97 98.0 08/28/17 12:00 Room Air Intake and Output 08/28/17 08/29/17 19:00 07:00 Intake Total 880 ml 360 ml Balance 880 ml 360 ml Intake Oral 480 ml 360 ml IV Total 400 ml # Voids 4 3 # Bowel Movements 2 1 Laboratory Tests Test 08/29/17 05:05 White Blood Count 7.4 K/UL (4.8-10.8) Red Blood Count 4.43 M/UL (4.20-5.40) Hemoglobin 14.6 G/DL (12.0-16.0) Hematocrit 41.6 % (37.0-47.0) Mean Corpuscular Volume 94 FL (80-99) Mean Corpuscular Hemoglobin 32.9 PG (27.0-31.0) H Mean Corpuscular Hemoglobin Concent 35.0 G/DL (32.0-36.0) Red Cell Distribution Width 12.2 % (11.6-14.8) Platelet Count 309 K/UL (150-450) Mean Platelet Volume 5.3 FL (6.5-10.1) L Neutrophils (%) (Auto) 52.8 % (45.0-75.0) Lymphocytes (%) (Auto) 36.8 % (20.0-45.0) Monocytes (%) (Auto) 8.2 % (1.0-10.0) Eosinophils (%) (Auto) 1.3 % (0.0-3.0) Basophils (%) (Auto) 1.0 % (0.0-2.0) Sodium Level 140 MMOL/L (136-145) Potassium Level 4.5 MMOL/L (3.5-5.1) Chloride Level 104 MMOL/L (98-107) Carbon Dioxide Level 24 MMOL/L (21-32) Anion Gap 12 mmol/L (5-15) Blood Urea Nitrogen 8 mg/dL (7-18) Creatinine 0.8 MG/DL (0.55-1.30) Estimat Glomerular Filtration Rate mL/min (>60) Glucose Level 69 MG/DL (74-106) L Calcium Level 9.9 MG/DL (8.5-10.1) Height (Feet): 5 Height (Inches): 3.00 Weight (Pounds): 129 General Appearance: WD/WN, no apparent distress, alert Cardiovascular: normal rate Respiratory/Chest: normal breath sounds, no respiratory distress Abdominal Exam: normal bowel sounds, non tender, soft Extremities: normal range of motion, non-tender Objective more awake, alert today Kaylee Mohr N.P. Aug 29, 2017 10:29
[2017-08-29 11:53] VITALS: BP 124/78
--- NOTE | 2017-08-29 13:06 | Infectious Diseases Prog Note ---
Assessment/Plan Assessment/Plan A; Left lower lung pulmonary nodule with [place] Nicotine dependence HPN Dementia & Psychosis P: will f/u TB & fungal serologies Subjective ROS Limited/Unobtainable: Yes Respiratory: Reports: dry cough Allergies: Coded Allergies: PENICILLINS (Verified Allergy, Unknown, 07/30/08) Objective Vital Signs Last 24 Hour Vital Signs Date Time Temp Pulse Resp B/P (MAP) Pulse Ox O2 Delivery O2 Flow Rate FiO2 08/29/17 11:53 97.8 94 19 124/78 98 Room Air 97.8 08/29/17 07:43 97.9 74 18 104/62 Room Air 97.9 08/29/17 04:00 97.0 92 18 127/75 99 97.0 08/29/17 00:00 97.5 95 15 137/85 98 97.5 08/28/17 20:00 97.0 101 15 123/83 93 97.0 08/28/17 16:00 Room Air 08/28/17 16:00 97.7 98 21 119/83 99 97.7 Height (Feet): 5 Height (Inches): 3.00 Weight (Pounds): 129 General Appearance: no acute distress HEENT: other - dry mouth Cardiovascular: normal rate Abdomen: soft, non tender Extremities: no edema Neurologic/Psychiatric: alert, responsive Microbiology Date/Time Source Procedure Growth Status 08/26/17 20:30 Nasal Nares MRSA Culture - Final NO METHICILLIN RESISTANT STAPH AUREUS... Complete 08/26/17 20:30 Rectum VRE Culture - Final NO VANCOMYCIN RESISTANT ENTEROCOCCUS ... Complete Laboratory Tests Test 08/29/17 05:05 White Blood Count 7.4 K/UL (4.8-10.8) Red Blood Count 4.43 M/UL (4.20-5.40) Hemoglobin 14.6 G/DL (12.0-16.0) Hematocrit 41.6 % (37.0-47.0) Mean Corpuscular Volume 94 FL (80-99) Mean Corpuscular Hemoglobin 32.9 PG (27.0-31.0) H Mean Corpuscular Hemoglobin Concent 35.0 G/DL (32.0-36.0) Red Cell Distribution Width 12.2 % (11.6-14.8) Platelet Count 309 K/UL (150-450) Mean Platelet Volume 5.3 FL (6.5-10.1) L Neutrophils (%) (Auto) 52.8 % (45.0-75.0) Lymphocytes (%) (Auto) 36.8 % (20.0-45.0) Monocytes (%) (Auto) 8.2 % (1.0-10.0) Eosinophils (%) (Auto) 1.3 % (0.0-3.0) Basophils (%) (Auto) 1.0 % (0.0-2.0) Sodium Level 140 MMOL/L (136-145) Potassium Level 4.5 MMOL/L (3.5-5.1) Chloride Level 104 MMOL/L (98-107) Carbon Dioxide Level 24 MMOL/L (21-32) Anion Gap 12 mmol/L (5-15) Blood Urea Nitrogen 8 mg/dL (7-18) Creatinine 0.8 MG/DL (0.55-1.30) Estimat Glomerular Filtration Rate mL/min (>60) Glucose Level 69 MG/DL (74-106) L Calcium Level 9.9 MG/DL (8.5-10.1) Current Medications Medications (Trade) Dose Ordered Sig/Kvng Route PRN Reason Start Time Stop Time Status Last Admin Dose Admin Acetaminophen (Tylenol) 650 mg Q4H PRN ORAL Mild Pain/Temp > 100.5 08/27/17 00:00 09/26/17 00:00 Bisacodyl (Dulcolax) 10 mg DAILY ORAL 08/27/17 09:00 09/26/17 08:59 08/28/17 08:44 Dextrose (Dextrose 50%) 25 ml STAT PRN IV Hypoglycemia 08/27/17 00:00 09/26/17 00:00 Dextrose (Dextrose 50%) 50 ml STAT PRN IV Hypoglycemia 08/27/17 00:00 09/26/17 00:00 Diphenhydramine HCl (Benadryl) 25 mg Q6H PRN IM Itching 08/28/17 11:00 09/27/17 10:59 08/29/17 08:54 Docusate Sodium (Colace) 100 mg EVERY 12 HOURS ORAL 08/27/17 09:00 09/26/17 08:59 08/28/17 20:43 Haloperidol Lactate (Haldol) 5 mg Q6H PRN IM Agitation 08/27/17 14:00 09/26/17 13:59 08/29/17 08:54 Heparin Sodium (Porcine) (Heparin 5000 units/ml) 5,000 units EVERY 12 HOURS SUBQ 08/27/17 09:00 09/26/17 08:59 08/29/17 08:54 Lorazepam (Ativan 2mg/ml 1ml) 2 mg EVERY 6 HOURS PRN IV For Anxiety 08/28/17 08:45 09/04/17 08:44 08/28/17 08:54 Magnesium Hydroxide (Mom) 30 ml EVERY 4 HOURS PRN ORAL Constipation 08/27/17 00:00 09/26/17 00:00 Nicotine (Nicoderm) 1 patch Q24H TDERMAL 08/28/17 11:00 09/27/17 10:59 08/29/17 12:00 Olanzapine (ZyPREXA) 2.5 mg BEDTIME ORAL 08/29/17 21:00 09/28/17 20:59 Ondansetron HCl (Zofran) 4 mg Q6H PRN IVP Nausea & Vomiting 08/27/17 00:00 09/26/17 00:00 Polyethylene Glycol (Miralax) 17 gm BEDTIME ORAL 08/27/17 21:00 09/26/17 20:59 08/28/17 20:44 Sennosides (Senokot) 1 tab DAILY ORAL 08/27/17 09:00 09/26/17 08:59 08/28/17 08:39 Sodium Chloride 1,000 ml @ 50 mls/hr Q20H IV 08/27/17 00:57 09/26/17 00:56 08/27/17 20:14 OUMOU JETER Aug 29, 2017 13:06
[2017-08-29] MEDS ORDERED: LORazepam Inj 2mg/ml 1ml IM PRN (13:15)
[2017-08-29 16:09] VITALS: BP 110/74
--- NOTE | 2017-08-29 18:00 | Progress Note ---
DATE: 08/29/2017 SUBJECTIVE: The patient continues to be anxious and has been presenting with waxing and waning consciousness. He is having impairment of concentration, memory, and attention. Agitation is better. He is calmer. The patient was agitated this morning and attempted to climb out of bed. The patient continues to be combative. MENTAL STATUS EXAMINATION: The patient is confused and disoriented. Mood is agitated. Affect is constricted. Congruent with mood. Thought process concrete. Thought content, no suicidal or homicidal ideation. ASSESSMENT: 1. Encephalopathy. 2. Agitation. PLAN: 1. We will continue to readjust the medications. We will change the Ativan to IM. 2. We will increase the olanzapine. 3. We will continue to follow and readjust the medications. 4. Raise the head of the bed 30 degrees. 5. Check the vitals every 15 minutes after administering Benadryl with Haldol. It was communicated to the nurse. Manny Lester M.D. DR: ATN JOB#: [id number] CC:
[2017-08-29] MEDS: OLANZapine 2.5mg tab ORAL SCH (18:24)
[2017-08-29 20:00] VITALS: BP 125/80
[2017-08-29] MEDS: Miralax 17gm pkt ORAL SCH (20:34)
[2017-08-29] MEDS ORDERED: OLANZapine 2.5mg tab ORAL SCH (21:00)
--- NOTE | 2017-08-29 22:03 | General Progress Note ---
Assessment/Plan Problem List: (1) UTI (lower urinary tract infection) ICD Codes: N39.0 - UTI (lower urinary tract infection) SNOMED: 4289210 (2) s/p multiple lacunar strokes (3) Intractable abdominal pain ICD Codes: R10.9 - Unspecified abdominal pain SNOMED: 98486685, 885915185 (4) Constipation ICD Codes: K59.00 - Constipation, unspecified SNOMED: 08316510 (5) Dehydration ICD Codes: E86.0 - Dehydration SNOMED: 12828701 (6) Psychosis ICD Codes: F29 - Unspecified psychosis not due to a substance or known physiological condition SNOMED: 16747569 (7) At risk for dehydration due to poor fluid intake ICD Codes: Z91.89 - Other specified personal risk factors, not elsewhere classified SNOMED: 57699363, 200567749 Status: progressing Assessment/Plan abdominal pain improving afebrile vitals stable dc in am cavitary lesion w/u per pulmonary Subjective ROS Limited/Unobtainable: Yes Constitutional: Reports: no symptoms Allergies: Coded Allergies: PENICILLINS (Verified Allergy, Unknown, 07/30/08) Objective Last 24 Hour Vital Signs Date Time Temp Pulse Resp B/P (MAP) Pulse Ox O2 Delivery O2 Flow Rate FiO2 08/29/17 20:00 97.3 95 15 125/80 96 97.3 08/29/17 16:10 Room Air 08/29/17 16:09 97.7 90 18 110/74 98 Room Air 97.7 08/29/17 12:00 Room Air 08/29/17 11:53 97.8 94 19 124/78 98 Room Air 97.8 08/29/17 08:00 98 Room Air 08/29/17 07:43 97.9 74 18 104/62 Room Air 97.9 08/29/17 04:00 97.0 92 18 127/75 99 97.0 08/29/17 00:00 97.5 95 15 137/85 98 97.5 Intake and Output 08/28/17 08/29/17 19:00 07:00 Intake Total 880 ml 360 ml Balance 880 ml 360 ml Intake Oral 480 ml 360 ml IV Total 400 ml # Voids 4 3 # Bowel Movements 2 1 Laboratory Tests 08/29/17 05:05: White Blood Count 7.4, Red Blood Count 4.43, Hemoglobin 14.6, Hematocrit 41.6, Mean Corpuscular Volume 94, Mean Corpuscular Hemoglobin 32.9H, Mean Corpuscular Hemoglobin Concent 35.0, Red Cell Distribution Width 12.2, Platelet Count 309, Mean Platelet Volume 5.3L, Neutrophils (%) (Auto) 52.8, Lymphocytes (%) (Auto) 36.8, Monocytes (%) (Auto) 8.2, Eosinophils (%) (Auto) 1.3, Basophils (%) (Auto ) 1.0, Sodium Level 140, Potassium Level 4.5, Chloride Level 104, Carbon Dioxide Level 24, Anion Gap 12, Blood Urea Nitrogen 8, Creatinine 0.8, Estimat Glomerular Filtration Rate , Glucose Level 69L, Calcium Level 9.9 Height (Feet): 5 Height (Inches): 3.00 Weight (Pounds): 129 Cardiovascular: normal rate Respiratory/Chest: lungs clear Abdomen: soft Summer Gaines MD Aug 29, 2017 22:03
[2017-08-30] MEDS: DiphenhydrAMINE 50mg/ml Inj IM PRN (00:11)
[2017-08-30] MEDS: Haloperidol 5mg/ml Inj IM PRN (00:11)
[2017-08-30 00:26] VITALS: BP 119/77
[2017-08-30 00:41] VITALS: BP 121/79
[2017-08-30 00:56] VITALS: BP 124/76
[2017-08-30 01:11] VITALS: BP 120/81
[2017-08-30 06:37] LABS: BASOPHILS % (AUTO) 1.2 % (0.0-2.0); EOSINOPHILS % (AUTO) 2.5 % (0.0-3.0); HEMATOCRIT 47.3 % (37.0-47.0); HEMOGLOBIN 16.3 G/DL (12.0-16.0); LYMPHOCYTES % (AUTO) 49.1 % (20.0-45.0); MEAN CORPUSCULAR VOLUME 94 FL (80-99); MONOCYTES % (AUTO) 7.5 % (1.0-10.0); NEUTROPHILS % (AUTO) 39.8 % (45.0-75.0); PLATELET COUNT 289 K/UL (150-450); RED BLOOD COUNT 5.02 M/UL (4.20-5.40); RED CELL DISTRIBUTION WIDTH 12.4 % (11.6-14.8); WHITE BLOOD COUNT 8.3 K/UL (4.8-10.8)
[2017-08-30 07:05] LABS: ANION GAP 12 mmol/L (5-15); BLOOD UREA NITROGEN 9 mg/dL (7-18); CARBON DIOXIDE 25 MMOL/L (21-32); CHLORIDE 104 MMOL/L (98-107); CREATININE 0.9 MG/DL (0.55-1.30); POTASSIUM 4.1 MMOL/L (3.5-5.1); SODIUM 140 MMOL/L (136-145)
[2017-08-30 08:00] VITALS: BP 136/71
[2017-08-30] MEDS: Sennosides 8.6mg ORAL SCH (09:24)
[2017-08-30] MEDS: Bisacodyl EC 5mg tab ORAL SCH (09:24)
[2017-08-30] MEDS: OLANZapine 2.5mg tab ORAL SCH (09:24)
[2017-08-30] MEDS: Docusate 100mg cap ORAL SCH (09:25)
[2017-08-30] MEDS: Heparin 5000 units/ml inj SUBQ SCH (09:27)
--- NOTE | 2017-08-30 10:16 | GI Progress Note ---
Assessment/Plan Problems: (1) At risk for dehydration due to poor fluid intake ICD Codes: Z91.89 - Other specified personal risk factors, not elsewhere classified SNOMED: 51656577, 672199358 (2) Altered mental status ICD Codes: R41.82 - Altered mental status, unspecified SNOMED: 415145383 (3) Dehydration ICD Codes: E86.0 - Dehydration SNOMED: 92768860 (4) Constipation ICD Codes: K59.00 - Constipation, unspecified SNOMED: 80072476 Status: stable Status Narrative Discussed with Dr. Martinez. Assessment/Plan CT AP reviewed >> Moderate retained colonic stool, nonspecific, correlate with any clinical history of constipation. symptomatic treatment / supportive care ok to advance diet, puree fu psychiatric recs bowel regime >> colace + miralax ppi IV/PO hydration prn transfusions PT evaluation fu labs Subjective Subjective wants to go home wants to go outside and smoke Objective Last 24 Hour Vital Signs Date Time Temp Pulse Resp B/P (MAP) Pulse Ox O2 Delivery O2 Flow Rate FiO2 08/30/17 03:38 97.3 08/30/17 02:39 97.3 08/30/17 01:11 97.7 82 18 120/81 98 Room Air 97.7 08/30/17 00:56 97.3 88 16 124/76 96 Room Air 97.3 08/30/17 00:41 97.0 79 18 121/79 96 Room Air 97.0 08/30/17 00:26 97.9 84 18 119/77 97 Room Air 97.9 08/29/17 20:00 97.3 95 15 125/80 96 97.3 08/29/17 16:10 Room Air 08/29/17 16:09 97.7 90 18 110/74 98 Room Air 97.7 08/29/17 12:00 Room Air 08/29/17 11:53 97.8 94 19 124/78 98 Room Air 97.8 Intake and Output 08/29/17 08/30/17 19:00 07:00 Intake Total 420 ml Balance 420 ml Intake Oral 420 ml # Voids 3 2 # Bowel Movements 1 Laboratory Tests Test 08/30/17 05:05 White Blood Count 8.3 K/UL (4.8-10.8) Red Blood Count 5.02 M/UL (4.20-5.40) Hemoglobin 16.3 G/DL (12.0-16.0) H Hematocrit 47.3 % (37.0-47.0) H Mean Corpuscular Volume 94 FL (80-99) Mean Corpuscular Hemoglobin 32.5 PG (27.0-31.0) H Mean Corpuscular Hemoglobin Concent 34.5 G/DL (32.0-36.0) Red Cell Distribution Width 12.4 % (11.6-14.8) Platelet Count 289 K/UL (150-450) Mean Platelet Volume 5.5 FL (6.5-10.1) L Neutrophils (%) (Auto) 39.8 % (45.0-75.0) L Lymphocytes (%) (Auto) 49.1 % (20.0-45.0) H Monocytes (%) (Auto) 7.5 % (1.0-10.0) Eosinophils (%) (Auto) 2.5 % (0.0-3.0) Basophils (%) (Auto) 1.2 % (0.0-2.0) Sodium Level 140 MMOL/L (136-145) Potassium Level 4.1 MMOL/L (3.5-5.1) Chloride Level 104 MMOL/L (98-107) Carbon Dioxide Level 25 MMOL/L (21-32) Anion Gap 12 mmol/L (5-15) Blood Urea Nitrogen 9 mg/dL (7-18) Creatinine 0.9 MG/DL (0.55-1.30) Estimat Glomerular Filtration Rate mL/min (>60) Glucose Level 99 MG/DL (74-106) Calcium Level 10.0 MG/DL (8.5-10.1) Height (Feet): 5 Height (Inches): 3.00 Weight (Pounds): 129 General Appearance: WD/WN, no apparent distress, alert Cardiovascular: normal rate Respiratory/Chest: normal breath sounds, no respiratory distress Abdominal Exam: normal bowel sounds, non tender, soft Extremities: normal range of motion, non-tender Objective more awake, alert today Kaylee Mohr N.P. Aug 30, 2017 10:16
--- NOTE | 2017-08-30 13:12 | General Progress Note ---
Assessment/Plan Status: stable, progressing Assessment/Plan encephalopathy dementia with behavioral dist haldol atmaryanne gonzalezrexa Subjective Date patient seen: Aug 30, 2017 Neurologic/Psychiatric: Reports: emotional problems Allergies: Coded Allergies: PENICILLINS (Verified Allergy, Unknown, 07/30/08) Subjective the pt is calm and sleeping no behavioral issues. Objective Last 24 Hour Vital Signs Date Time Temp Pulse Resp B/P (MAP) Pulse Ox O2 Delivery O2 Flow Rate FiO2 08/30/17 08:00 96.4 88 20 136/71 99 Room Air 96.4 08/30/17 03:38 97.3 08/30/17 02:39 97.3 08/30/17 01:11 97.7 82 18 120/81 98 Room Air 97.7 08/30/17 00:56 97.3 88 16 124/76 96 Room Air 97.3 08/30/17 00:41 97.0 79 18 121/79 96 Room Air 97.0 08/30/17 00:26 97.9 84 18 119/77 97 Room Air 97.9 08/29/17 20:00 97.3 95 15 125/80 96 97.3 08/29/17 16:10 Room Air 08/29/17 16:09 97.7 90 18 110/74 98 Room Air 97.7 Intake and Output 08/29/17 08/30/17 19:00 07:00 Intake Total 420 ml Balance 420 ml Intake Oral 420 ml # Voids 3 2 # Bowel Movements 1 Laboratory Tests 08/30/17 05:05: White Blood Count 8.3, Red Blood Count 5.02, Hemoglobin 16.3H, Hematocrit 47.3H , Mean Corpuscular Volume 94, Mean Corpuscular Hemoglobin 32.5H, Mean Corpuscular Hemoglobin Concent 34.5, Red Cell Distribution Width 12.4, Platelet Count 289, Mean Platelet Volume 5.5L, Neutrophils (%) (Auto) 39.8L, Lymphocytes (%) (Auto) 49.1H, Monocytes (%) (Auto) 7.5, Eosinophils (%) (Auto) 2.5, Basophils (%) (Auto) 1.2, Sodium Level 140, Potassium Level 4.1, Chloride Level 104, Carbon Dioxide Level 25, Anion Gap 12, Blood Urea Nitrogen 9, Creatinine 0.9, Estimat Glomerular Filtration Rate , Glucose Level 99, Calcium Level 10.0 Height (Feet): 5 Height (Inches): 3.00 Weight (Pounds): 129 General Appearance: no apparent distress, alert, confused Manny Lester M.D. Aug 30, 2017 13:12
--- NOTE | 2017-08-30 17:12 | Discharge Summary ---
Discharge Summary Hospital Course Date of Admission Aug 26, 2017 at 21:31 Date of Discharge Aug 30, 2017 at 11:41 Admitting Diagnosis dehydration, intractable abdominal pain HPI Esther Murcia is a 77 year old female who was admitted on Aug 26, 2017 at 21: 31 for Dehydration/Intractable Abdominal Pain Hospital Course [id number] Discharge Discharge Disposition Patient was discharged to SNF/Subacute Facility(03) Sharri Damon NP Aug 30, 2017 17:12
--- NOTE | 2017-08-30 21:45 | Discharge Summary 2 SIG ---
DATE OF ADMISSION: 08/26/2017 DATE OF DISCHARGE: 08/30/2017 CONSULTANTS: 1. Manny Lester M.D. 2. Ronnie Martinez M.D. 3. Gabriel Hassan M.D. BRIEF HOSPITAL COURSE: The patient is a 77-year-old female, who is a poor historian, presented to ED from half-way facility after persistent abdominal pain for many weeks now. She has severe psychiatric history and unable to point where the pain is. She denied chest pain. No fever, no chills. No nausea or vomiting. On evaluation at ED, EKG was in normal sinus rhythm with no acute ischemic changes. Laboratories showed minimal leukocytosis, WBC was 11, hemoglobin and hematocrit was stable. CT of the abdomen showed significant stools, however, no acute process or obstruction identified. She became agitated and disoriented. She was given Haldol and Ativan. She was then admitted for evaluation of acute abdominal pain and psychosis. She underwent psychiatric evaluation with Dr. Lester. She was diagnosed with encephalopathy and dementia. She was started on Zyprexa and was given Haldol and Ativan as needed. She had a 0.8 cm left lower lobe cavitary nodule on CT and was recommended repeat CT in three months. She was checked for Coccidioides, Cryptococcus, Histoplasma, and TB test, all results are still pending. She was given bowel regimen and diet was advanced to pureed diet. She was given proton pump inhibitors, Colace and MiraLAX. She was eventually discharged back to halfway awaiting results of serology. FINAL DIAGNOSES: 1. Altered mental status/encephalopathy. 2. Dehydration. 3. Constipation. 4. At risk for dehydration due to poor p.o. intake. 5. Dementia with behavioral disturbance. 6. Encephalopathy. 7. Left lung cavitary lesion. 8. Tobacco use. 9. Schizophrenia. 10. Hyperlipidemia. 11. Hypertension. 12. CAD. 13. Status post multiple lacunar strokes. DISPOSITION: The patient was discharged home back to SNF. DISCHARGE MEDICATIONS: Refer to medication list. Ali Hadadz, M.D. I have been assigned to dictate discharge summary on this account and I was not involved in the patient's management. Sharri Damon N.P. DR: RON JOB#: [id number] CC:
== END 2017-08-30 11:41 | DRG 71 ==
LOC: EDBD 20:31 → EMR 20:45 → 4W 21:31 → EDBEDREQ 21:59 → 4W 08-27 04:42
DX: G93.40 Encephalopathy, unspecified (principal); F03.91 Unspecified dementia, unspecified severity, with behavioral disturbance; F20.0 Paranoid schizophrenia; N39.0 Urinary tract infection, site not specified; F17.200 Nicotine dependence, unspecified, uncomplicated; J98.4 Other disorders of lung; R10.9 Unspecified abdominal pain; I11.0 Hypertensive heart disease with heart failure; I50.9 Heart failure, unspecified; I25.10 Atherosclerotic heart disease of native coronary artery without angina pectoris; E78.5 Hyperlipidemia, unspecified; I73.9 Peripheral vascular disease, unspecified; E86.0 Dehydration; R13.10 Dysphagia, unspecified; K59.00 Constipation, unspecified; Z88.0 Allergy status to penicillin; Z89.511 Acquired absence of right leg below knee; G24.01 Drug induced subacute dyskinesia; R45.1 Restlessness and agitation; Z86.73 Personal history of transient ischemic attack (TIA), and cerebral infarction without residual deficits
CPT/HCPCS: 36415; 71045; 71260; 74176; 80048; 80053; 81003; 82550; 82553; 83690; 83735; 84100; 84484; 85025; 85651; 86021; 86039; 86140; 86200; 86431; 86635; 87081; 87385; 87449; 93005; 99285; J8499